=== PATIENT | female | born 1950 | race Caucasian/White ===

== ENCOUNTER 2019-07-15 20:41 | Inpatient (IN) | payer OTHER, SELFPAY ==
--- NOTE | ~2019-07-15 | XR_ITS ---
EXAMINATION: XR abdomen obstructive series DATE: 07/16/2019 11:32 INDICATION: Vomiting. Constipation. TECHNIQUE: Upright and supine views of the abdomen were obtained. COMPARISON: Abdomen radiographs 06/14/2013 FINDINGS: There are no dilated loops of bowel. There is a large volume of stool in the colon. No free intraperitoneal gas. Surgical clips in the right upper quadrant are likely from cholecystectomy. Ski nfolds overlie the chest. IMPRESSION: 1. Nonobstructive bowel gas pattern. Reviewed, dictated and finalized at location B. DENT RESPONSE LEAD
--- NOTE | ~2019-07-15 | CT_ITS ---
EXAMINATION: CT brain wo con INDICATION: Head injury COMPARISON: 08/03/2011 TECHNIQUE: Standard unenhanced head CT. The dose-length product (DLP) was 605.33 mGy-cm. The mA was a djusted according to patient size. Iterative reconstruction technique was employed. FINDINGS: There is no acute intraparenchymal hemorrhage. No evidence of mass lesion. No evidence of a cute infarction. There is mild periventricular and subcortical hypodensity probably related to small vessel ischemic disease. There is mild prominence of the sulci and ventricles related to cerebral atr ophy. Intracranial calcified cerebral atherosclerosis is noted. There are no extra-axial collections. There is no mass effect or midline shift. The orbits and soft tissues are unremarkable. There is mi nimal opacification of the left maxillary sinus. IMPRESSION: 1. No acute intracranial abnormality. 2. Age related findings. Reviewed, dictated and finalized at location A. NCIAL ENGINEER
[2019-07-15 21:44] VITALS: BP 165/96; PULSE 91; RESP 18; TEMP 36.9; O2SAT 100
--- NOTE | 2019-07-15 22:17 | ED.NAVMDI ---
HPI - Nausea/Vomiting/Diarrhea General Chief complaint: Nausea/Vomiting/Diarrhea Stated complaint: vomiting Time Seen by Provider: 07/15/19 22:17 Source: patient Mode of arrival: ambulatory Limitations: no limitations History of Present Illness HPI Narrative: A 68 y/o female presents to the ED with c/o N/V. Pt states that the N/V has been intermittent for the past week. She notes that she came to the ED because she believes she is dehydrated. Pt reports SOB, cough, rhinorrhea, and weakness, but denies diarrhea, fever, ABD pain, and CP. She has a PMHx of diabetes, [place], gastric bypass, and hyperlipidemia. Pt is not currently on blood thinners. Dr. Carter is her repairer pump. MD elicited complaint: nausea and vomiting Pertinent past history: abdominal surgery (Gastric bypass) Onset (ago): week(s) (1) Associated abdominal pain: No Associated symptoms: cough, shortness of breath, weakness and other (Rhinorrhea) Related Data Allergies Allergy/AdvReac Type Severity Reaction Status Date / Time No Known Allergies Allergy Unverified 12/15/18 19:11 Review of Systems Review of Systems: All systems reviewed & are unremarkable except as noted in HPI and below Constitutional: Constitutional: Denies fever(s) and Reports weakness ENT: Reports nasal discharge Cardiovascular: Cardiovascular: Denies chest pain Respiratory: Respiratory: Reports cough and Reports dyspnea Gastrointestinal: Gastrointestinal: Denies abdominal pain, Denies diarrhea, Reports nausea and Reports vomiting PMFSH Past Medical History Medical History (Updated 07/16/19 @ 01:40 by Devin Aguero MD) Anxiety Bowel obstruction Depression Diabetes Foot drop GERD (gastroesophageal reflux disease) Heart attack HTN (hypertension) Hyperlipidemia Hypothyroid Peripheral neuropathy Pneumonia Post-menopausal Renal failure TIA (transient ischemic attack) Surgical History Surgical History (Updated 07/15/19 @ 22:38 by Hailey Gonzalez) History of section History of cholecystectomy History of gastric bypass Social History Social History Smoking status: Never smoker Alcohol intake: never Gender identity (if verbalized by the patient): Female Exam Const: General: cooperative, healthy appearing, comfortable, no acute distress, well developed, alert and awake; No confused Orientation/consciousness: oriented to person, oriented to place, oriented to time, oriented x3 and No confused Limitations: no limitations HENMT: Head: normal to inspection, normocephalic and atraumatic Ears: hearing grossly normal bilaterally, TM normal on the right and TM normal on the left General nose exam: external nose normal, nares normal and no nasal discharge Face and sinus: normal facial exam Mouth: Yes oral mucosae normal, Yes lip normal, Yes tongue normal and Yes oropharynx normal Throat: posterior oropharynx normal, tonsils normal and uvula midline Eyes: General: appearance normal, both eyes and all related structures Pupils: PERRL EOM: EOM intact bilaterally Neck: Neck: normal visual inspection, full ROM, no lymphadenopathy and no meningeal signs Chest: Chest palpation & inspection: normal inspection of the chest Resp: Effort & Inspection: normal respiratory effort, able to speak in complete sentences, no respiratory distress and not tachypneic Auscultation: clear to auscultation bilaterally, no crackles, no rales, no rhonchi and no wheezes Cardio: Rate: regular rate Rhythm: regular rhythm GI: Inspection: normal to inspection GI Palp: No abdominal tenderness, Yes soft, No tender, No guarding, No rigid and No rebound tenderness Auscultation: normal bowel sounds : General: Yes no CVA tenderness Back/Spine/Pelvis: Back: no CVA tenderness Skin: General skin exam: normal color, no rashes or lesions noted, elasticity normal and turgor normal Neuro: General: oriented to person, oriented to place, orie
[2019-07-15 22:31] LABS: Basophils Absolute Auto 0.1 K/mm3 (0.0-0.1); Basophils Percent Auto 0.4 % (0.2-1.2); Eosinophils Absolute Auto 0.1 K/mm3 (0-0.3); Eosinophils Percent Auto 0.7 % (0-4.4); Hematocrit 26.4 % (37.0-47.0); Hemoglobin 7.3 g/dL (12.0-15.0); Immature Granulocyte Absolute 0.09 K/mm3 (0.00-0.031); Immature Granulocyte Percent A 0.7 % (0-0.5); Lymphocytes Absolute Auto 0.69 K/mm3 (0.9-3.2); Lymphocytes Percent Auto 5.2 % (18.3-44.2); Mean Corpuscular HGB Conc 27.7 g/dl (32-36); Mean Corpuscular Hemoglobin 19.9 pg (26-34); Mean Corpuscular Volume 71.9 fl (80-100); Mean Platelet Volume 8.8 fl (7.4-10.4); Monocytes Absolute Auto 0.9 K/mm3 (0.1-0.6); Monocytes Percent Auto 6.5 % (2.6-8.5); Neutrophils Absolute Auto 11.6 K/mm3 (1.3-6.7); Neutrophils Percent Auto 86.5 % (45.5-73.1); Platelet Count Result 455 k/mm3 (150-375); Red Blood Count 3.67 M/mm3 (4.2-5.4); Red Cell Distribution Width 21.5 % (11.5-14.5); White Blood Count 13.3 K/mm3 (4.5-10.0)
--- NOTE | 2019-07-15 22:42 | ECG_ITS ---
Measurements Intervals [place] Rate: 90 P: 11 MD: 150 QRS: -49 QRSD: 94 T: 28 QT: 371 QTc: 455 Interpretive Statements SINUS RHYTHM LEFT ANTERIOR FASCICULAR BLOCK BORDERLINE ST ABNORMALITY- INFERIOR LEADS BASELINE ARTIFACT- I, II, III, AVR, AVL, AVF ABNORMAL ECG Electronically Signed On 07-16-2019 7:09:01 ANIME DESIGNER by Kenji Lassiter D.O.
[2019-07-15 22:43] LABS: Alanine Aminotransferase 10 U/L (4-35); Albumin Level 3.9 g/dL (3.5-5.1); Alkaline Phosphatase 116 U/L (38-126); Aspartate Amino Transferase 16 U/L (14-36); Bilirubin,Total 0.3 mg/dL (0.2-1.3); Blood Urea Nitrogen 14 mg/dL (7-17); Calcium 8.9 mg/dL (8.4-10.2); Carbon Dioxide 24 mmol/L (22-30); Chloride 100 mmol/L (98-107); Estimated CRCL calculation 38 ml/min; Estimated Glomerular Filt Rate 50; Glucose 105 mg/dL (65-105); Lipase 68 U/L (23-300); Potassium 3.5 mmol/L (3.4-5.0); Sodium 138 mmol/L (137-145)
[2019-07-15 22:48] LABS: Hypochromasia 2+ (NORMAL); Platelet Estimate Increased (Adequate)
[2019-07-15 22:49] LABS: Anisocytosis 3+ (NORMAL)
[2019-07-15] MEDS: ONDANSETRON INJ 4 MG/2 ML VIAL IV PUSH (22:50)
[2019-07-15] MEDS: SODIUM CHLORIDE 0.9% IV 1,000 ML 999 ML IV CONT (22:50)
[2019-07-15 23:14] VITALS: BP 166/77; PULSE 73
[2019-07-15 23:14] LABS: Add Urine Microscopic? YES; Appearance Urine Cloudy (Clear); Bacteria Urine Trace /hpf; Bilirubin Urine Negative (Negative); Blood Urine 1+ (Negative); Color Urine Yellow (Yellow); Glucose Urine UA Negative (Negative); Ketones Urine Negative (Negative); Leukocyte Esterase Ur 2+ LEU/UL (Negative); Mucus Urine Rare /lpf; Nitrate Urine Negative (Negative); Protein Urine 2+ mg/dL (Negative); Specific Grav Ur 1.024 (1.001-1.035); Squamous Epithelial Cell Urine Many /hpf (Few); WBC Urine 31-50 /hpf
[2019-07-15 23:20] VITALS: BP 154/87; BP 182/96; PULSE 102; PULSE 92
[2019-07-16] VITALS (19 sets, daily range): BP systolic 138–204; BP diastolic 73–100; PULSE 59–97; RESP 14–22; TEMP 36.3–37.1; O2SAT 94–100; BMI 17.1
[2019-07-16] MEDS: ACETAMINOPHEN 325 MG TABLET 650 MG PO (02:28)
[2019-07-16 03:26] LABS: Immature Reticulocyte Fraction 25.9 % (3.0-15.9); Reticulocyte Hemoglobin Conten 22.8 pg (28.2-35.7); Reticulocyte Percent 1.42 % (0.7-4.3); Reticulocytes Absolute 0.05 B/L (32.2-175.7)
--- NOTE | 2019-07-16 03:36 | ADMGEN ---
This patient, Sonya Johnson, was admitted to Medical Room 243-. Patient/family oriented to hospital policies and general routines including ID bracelet, bed and alarms, visiting hours, pain management, procedures, bathroom and other care routines, personal items, smoking policy, room service/diet, and visiting hours. Valuables list has been completed. Information on how to activate the Rapid Response Team has been discussed. Patient/Family are encouraged to report perceived risks to care and to ask questions if they do not understand what they are told or what they should do.
[2019-07-16] MEDS: SODIUM CHLORIDE 0.9% IV 250 ML 30 ML IV CONT (03:40)
--- NOTE | 2019-07-16 05:27 | PM.IMHP ---
H&P: HPI History of Present Illness Chief complaint: Nausea, vomiting, dizziness and weakness++ Narrative: This is a 68 year old Diabetic female with known HTN, and GERD who presented to the hospital with a complaint of nausea and vomiting, exertional shortness of breath, chest pressure, weakness and dizziness for the past week. She states that anything she eats comes right back up. She describes having clear emesis that is not dark nor bloody. Tonight she came to the hospital secondary to being dehydrated. She denies any diarrhea, dark stool or bloody stool. Her last bowel movement was four days ago. She does have a history of previous PUD but has never had a GI bleed before. She has had an EGD before but can't tell me when and isn't sure if she's ever had a colonoscopy before. She does admit to taking ibuprofen twice daily for the past couple of months. She denies any headache, fever, chills, cough, abdominal pain, diarrhea, hematuria, dysuria, or rectal bleeding. In the ER tonight the patient was found to have a drop in her hemoglobin from 8.6 to 7.3 over the past 5 days. ER provider has ordered 1 unit of pRBCs to be transfused. The patient's urinalysis also came back abnormal. The patient is known to follow up with Dr. Carter. Review of Systems Review of Systems: All systems reviewed & are unremarkable except as noted in HPI and below PMFSH Past Medical History Medical History Anxiety Bowel obstruction Depression Diabetes Foot drop GERD (gastroesophageal reflux disease) Heart attack HTN (hypertension) Hyperlipidemia Hypothyroid Peripheral neuropathy Pneumonia Post-menopausal Renal failure TIA (transient ischemic attack) Surgical History Surgical History History of section History of cholecystectomy History of gastric bypass Family History Family History Mother Acute myocardial infarction Asthma History of blood clots Congestive heart failure Social History Social History Smoking status: Never smoker Alcohol intake: never Substance use: never Gender identity (if verbalized by the patient): Female Spiritual care concerns: No Agree to blood products: Yes Meds Home Medications and Allergies Home Medications Medication Instructions Recorded Confirmed Type buspirone 15 mg PO TID 07/16/19 07/16/19 History furosemide 40 mg PO DAILY 07/16/19 07/16/19 History hydroxyzine HCl 25 mg PO Q8H PRN 07/16/19 07/16/19 History pantoprazole 40 mg PO DAILY 07/16/19 07/16/19 History pregabalin 75 mg PO BID 07/16/19 07/16/19 History simvastatin 20 mg PO DAILY 07/16/19 07/16/19 History sitagliptin [Januvia] 50 mg PO DAILY 07/16/19 07/16/19 History Allergies Allergy/AdvReac Type Severity Reaction Status Date / Time No Known Allergies Allergy Unverified 12/15/18 19:11 Vital Signs Vital Signs - 24 hr 07/15/19 21:44 07/15/19 23:14 07/15/19 23:20 Temperature 36.9 C Pulse Rate 91 73 102 H Respiratory Rate 18 Blood Pressure 165/96 H 166/77 H 154/87 H Pulse Oximetry 100 07/16/19 01:30 07/16/19 03:07 07/16/19 03:37 Temperature 36.4 C Pulse Rate 75 71 97 Respiratory Rate 14 18 22 H Blood Pressure 152/86 H 156/78 H 163/87 H Pulse Oximetry 98 96 07/16/19 03:43 07/16/19 03:55 07/16/19 04:00 Temperature 36.4 C 36.3 C L Pulse Rate 97 75 71 Respiratory Rate 22 H 20 Blood Pressure 163/87 H 190/85 H Pulse Oximetry 96 07/16/19 04:55 Temperature 36.3 C L Pulse Rate 69 Respiratory Rate 20 Blood Pressure 185/78 H Pulse Oximetry 95 Exam Const: General: cooperative, healthy appearing, no acute distress, alert and awake Nutritional Appearance: thin Orientation/consciousness: oriented x3 HENMT: Head: normal to inspection General nose exam: exte
[2019-07-16] MEDS: DEXTROSE 50% 25 GM/50 ML SYRINGE IV PUSH ×2 (06:08→11:39)
[2019-07-16 06:36] LABS: Glucose Point of Care 62 (65-105)
[2019-07-16 06:36] LABS: Glucose Point of Care 142 (65-105)
[2019-07-16] MEDS: hydrALAZINE HCL 20 MG/ML VIAL 10 MG IV PUSH ×2 (06:36→20:37)
[2019-07-16] MEDS: DEXTROSE 5%/0.9% SOD CHL 1,000 ML 100 ML IV CONT (06:44)
[2019-07-16 07:30] LABS: Bilirubin,Total 0.3 mg/dL (0.2-1.3); Lactate Dehydrogenase 413 U/L (313-618)
[2019-07-16 07:39] LABS: Transferrin 194 mg/dL (206-381)
[2019-07-16 07:41] LABS: Alanine Aminotransferase 9 U/L (4-35); Albumin Level 3.3 g/dL (3.5-5.1); Alkaline Phosphatase 94 U/L (38-126); Aspartate Amino Transferase 16 U/L (14-36); Bilirubin,Total 0.3 mg/dL (0.2-1.3); Blood Urea Nitrogen 13 mg/dL (7-17); Calcium 8.1 mg/dL (8.4-10.2); Carbon Dioxide 20 mmol/L (22-30); Chloride 104 mmol/L (98-107); Estimated CRCL calculation 41 ml/min; Estimated Glomerular Filt Rate > 60; Glucose 120 mg/dL (65-105); Potassium 3.3 mmol/L (3.4-5.0); Sodium 135 mmol/L (137-145); Troponin I 0.024 ng/mL (0.000-0.034)
[2019-07-16] MEDS: PANTOPRAZOLE 40 MG TABLET PO (09:34)
[2019-07-16] MEDS: SIMVASTATIN 20 MG TABLET PO (09:34)
[2019-07-16] MEDS: FUROSEMIDE 40 MG TABLET PO (09:34)
[2019-07-16] MEDS: busPIRone HCL 5 MG TABLET 15 MG PO ×3 (09:34→18:00)
[2019-07-16] MEDS: PREGABALIN 75 MG CAPSULE PO ×2 (09:34→18:00)
[2019-07-16 10:08] LABS: Iron 29 ug/dL (37-170)
--- NOTE | 2019-07-16 10:15 | PM.IMPN ---
Progress Note: A&P Assessment and Plan (1) Nausea & vomiting: Qualifiers: Vomiting Intractability: non-intractable Vomiting type: unspecified Qualified Code(s): R11.2 - Nausea with vomiting, unspecified Code(s): R11.2 - Nausea with vomiting, unspecified Status: Acute Assessment and Plan: Patient reports post-prandial vomiting. Reports a long history of vomiting off and on but symptoms worsened over the last 1 week. She has seen Dr Carter in the past and was found to have esophageal web on EGD Apr 2016 which was dilated. Consult[address] Dr Carter and appreciate his recommendations. Continue protonix, antiemetics. Edit: Reviewed Dr Carter's note, plan for outpatient EGD and possible colonoscopy as well. (2) Symptomatic anemia: Code(s): D64.9 - Anemia, unspecified Status: Acute Assessment and Plan: Hgb down to 7.3 yesterday. Recheck CBC this AM and monitor H&H closely. She received 1 unit packed RBC yesterday. She does have a history of gastric bypass in 2006 and previous records show she has had anemia in the past, possibly malabsorption after bypass. Edit: Hgb up to 8.6 this afternoon. Recheck in AM. Likely a component of iron deficiency, will start oral iron supplementation. (3) Diabetes: Qualifiers: Diabetes mellitus complication status: without complication Diabetes mellitus director of informatics insulin use: without prison use Diabetes mellitus type: type 2 Qualified Code(s): E11.9 - Type 2 diabetes mellitus without complications Code(s): E11.9 - Type 2 diabetes mellitus without complications Status: Chronic Assessment and Plan: Hold home Januvbarbara. Monitor with accu-cheks and cover with SSI. (4) HTN (hypertension): Qualifiers: Hypertension type: unspecified Qualified Code(s): I10 - Essential (primary) hypertension Code(s): I10 - Essential (primary) hypertension Status: Chronic Assessment and Plan: BP elevated. Patient is anxious. IV hydralazine as needed, monitor BP and adjust treatment as needed. (5) Bacteriuria: Code(s): R82.71 - Bacteriuria Status: Acute Assessment and Plan: Rocephin was started in the ED in the setting of abnormal urinalysis. Pt is asymptomatic. Urine culture pending. (6) Hypokalemia: Code(s): E87.6 - Hypokalemia Status: Acute Assessment and Plan: K 3.3 this AM, replace. Recheck tomorrow. Likely associated with GI loss. (7) Major depressive disorder: Qualifiers: Major depression recurrence: unspecified whether recurrent Active/Remission status: remission status unspecified Qualified Code(s): F32.9 - Major depressive disorder, single episode, unspecified Code(s): F32.9 - Major depressive disorder, single episode, unspecified Status: Acute Assessment and Plan: Continue home Buspar. Patient is very anxious. Can try low dose Xanax BID. (8) DVT prophylaxis: Code(s): Z29.9 - Encounter for prophylactic measures, unspecified Status: Acute Assessment and Plan: SCDs Subjective Date/time seen: 07/16/19 10:00 Interval history: Ms. Johnson is a 68yo F admitted with anemia and vomiting. She tells me she has not vomited since she has been here but was vomiting after almost every meal at home. She reports vomiting on and off over the last several months, worsening in the last one week. She reports intermittent nausea that is relieved after vomiting. Reports vomit looks like clear liquid and denies noticing blood or coffe-ground appearance. Last BM was 4 days ago, has not tolerated much of anything to eat. She is quite anxious, stressed about family situations at home. She denies any chest pain or shortness of breath.
[2019-07-16 10:18] LABS: Percent Iron Saturation 12 % (20-50)
[2019-07-16 10:34] LABS: Basophils Absolute Auto 0.1 K/mm3 (0.0-0.1); Basophils Percent Auto 0.5 % (0.2-1.2); Eosinophils Absolute Auto 0.1 K/mm3 (0-0.3); Eosinophils Percent Auto 0.9 % (0-4.4); Hematocrit 29.2 % (37.0-47.0); Hemoglobin 8.4 g/dL (12.0-15.0); Immature Granulocyte Absolute 0.06 K/mm3 (0.00-0.031); Immature Granulocyte Percent A 0.6 % (0-0.5); Lymphocytes Absolute Auto 0.75 K/mm3 (0.9-3.2); Lymphocytes Percent Auto 7.5 % (18.3-44.2); Mean Corpuscular HGB Conc 28.8 g/dl (32-36); Mean Corpuscular Hemoglobin 21.7 pg (26-34); Mean Corpuscular Volume 75.5 fl (80-100); Mean Platelet Volume 8.9 fl (7.4-10.4); Monocytes Absolute Auto 0.8 K/mm3 (0.1-0.6); Monocytes Percent Auto 7.9 % (2.6-8.5); Neutrophils Absolute Auto 8.3 K/mm3 (1.3-6.7); Neutrophils Percent Auto 82.6 % (45.5-73.1); Platelet Count Result 366 k/mm3 (150-375); Red Blood Count 3.87 M/mm3 (4.2-5.4); Red Cell Distribution Width 22.7 % (11.5-14.5)
[2019-07-16 10:43] LABS: Ferritin 6.51 ng/mL (11.1-264)
[2019-07-16 10:50] LABS: Hypochromasia 2+ (NORMAL); Platelet Estimate Adequate (Adequate)
[2019-07-16 11:15] LABS: Glucose Point of Care 62 (65-105)
--- NOTE | 2019-07-16 11:25 | PC.NURSE ---
Patient BG 62 at this time. Patient refuses oral glucose gel. Apple juice given to patient. Will recheck BG in 15 minutes.
[2019-07-16 11:39] LABS: Glucose Point of Care 63 (65-105)
[2019-07-16 11:56] LABS: Glucose Point of Care 88 (65-105)
--- NOTE | 2019-07-16 14:06 | WPDGICN ---
Assessment and Plan Additional Plan This is a 68-year-old white female patient I am asked to see for nausea vomiting. Patient reports she has had nausea and vomiting for approximately 1 week. She began to feel very weak with no energy and presented to the emergency room. In the emergency room she was found to have some have element of dehydration and started on IV fluids. Urinalysis revealed significant pyuria. And bacteriuria. Patient has some improvement today after IV fluid rehydration and tolerated lunch with no difficulties. Past medical history is significant for GE reflux disease. She has a history of distal esophageal stricturing requiring dilatation in 2016. She does occasionally notice some regurgitation in the past. Symptoms of difficulty swallowing have worsened over the last 3 months. Past medical history is also significant for prior gastric bypass surgery in 2006. Patient has a history of diabetes. Hypertension. Family history is noncontributory. Current medications include boost per own, Lasix, hydroxyzine, pantoprazole, pregabalin. Simvastatin. Januvia. NKDA . On physical exam patient is alert. Comfortable at rest. Vital signs stable. HEENT exam unremarkable. She is anicteric. Lungs are clear to auscultation and percussion. Heart is without murmur. Abdominal exam is soft nontender with no hepatosplenomegaly. Laboratory red tests reveal pyuria. Cloudy urine with 31-50 white cells per high-powered field. Hemoglobin of 8.4 matter crit 29.2 MCV of 75. Impression 1. Nausea vomiting. This is most likely related to her urinary tract infection. Supportive care and IV fluids suggested initially. Problem 2. Pyuria. Most consistent with urinary tract infection. Agree with urine cultures in antibiotics. 3. GE reflux disease. Patient is known to have esophageal stricture most recently dilated in 2016. Patient may be prone to reflux because of this. Plan to continue proton pump inhibitor. Outpatient EGD for dilatation of stricture is advised because she has recurrent dysphagia. 4. Dysphagia. Follow-up EGD anticipated as an outpatient. She has a history of esophageal stricture ring. 5. Microcytic anemia. This is a bit suspicious for iron deficiency. Plan to check iron studies and stool Hemoccult. EGD will be planned. She may also benefit from outpatient colonoscopy. 6. History of gastric bypass. This is felt to be stable. But may contribute to her acid reflux. GI Consult Note Consult date/time: 07/16/19 14:06 HPI: Sonya Johnson is a 68 year old female [facility] Past Medical History Medical History (Updated 07/16/19 @ 10:32 by Lorene Cooper PA-C) Anxiety Bowel obstruction Depression Diabetes Foot drop GERD (gastroesophageal reflux disease) Heart attack HTN (hypertension) Hyperlipidemia Hypothyroid Peripheral neuropathy Pneumonia Post-menopausal Renal failure TIA (transient ischemic attack) Surgical History Surgical History History of section History of cholecystectomy History of gastric bypass Family History Family History Mother Acute myocardial infarction Asthma History of blood clots Congestive heart failure Social History Social History Smoking status: Never smoker Alcohol intake: never Substance use: never Gender identity (if verbalized by the patient): Female Spiritual care concerns: No Agree to blood products: Yes Meds Home Medications and Allergies Home Medications Medication Instructions Recorded Confirmed Type buspirone 15 mg PO TID 07/16/19 07/16/19 History furosemide 40 mg PO DAILY 07/16/19 07/16/19 History hydroxyzine HCl 25 mg PO Q8H PRN 07/16/19 07/16/19 History pantoprazole 40 mg PO DAILY 07/16/19 07/16/19 History pregabalin 75 mg PO BID 07/16/19
[2019-07-16 14:16] LABS: Glucose Point of Care 211 (65-105)
[2019-07-16 16:01] LABS: Hematocrit 29.8 % (37.0-47.0); Hemoglobin 8.6 g/dL (12.0-15.0)
[2019-07-16 17:18] LABS: Iron 28 ug/dL (37-170)
[2019-07-16 17:27] LABS: Percent Iron Saturation 12 % (20-50)
[2019-07-16 17:54] LABS: Ferritin 7.11 ng/mL (11.1-264)
[2019-07-16] MEDS: FERROUS SULFATE 324 MG TABLET PO (18:00)
[2019-07-16 18:19] LABS: Glucose Point of Care 79 (65-105)
[2019-07-16 23:44] LABS: Glucose Point of Care 61 (65-105)
[2019-07-16 23:44] LABS: Glucose Point of Care 88 (65-105)
[2019-07-17] VITALS (10 sets, daily range): BP systolic 133–153; BP diastolic 79–86; PULSE 83–100; RESP 18–20; TEMP 36.7–37.1; O2SAT 96–100
[2019-07-17] MEDS: LORAZEPAM 0.5 MG TABLET PO (02:54)
[2019-07-17 05:52] LABS: Basophils Percent Auto 0.3 % (0.2-1.2); Eosinophils Absolute Auto 0.1 K/mm3 (0-0.3); Eosinophils Percent Auto 0.8 % (0-4.4); Hematocrit 28.9 % (37.0-47.0); Hemoglobin 8.4 g/dL (12.0-15.0); Immature Granulocyte Absolute 0.07 K/mm3 (0.00-0.031); Immature Granulocyte Percent A 0.6 % (0-0.5); Lymphocytes Absolute Auto 0.78 K/mm3 (0.9-3.2); Lymphocytes Percent Auto 6.4 % (18.3-44.2); Mean Corpuscular HGB Conc 29.1 g/dl (32-36); Mean Corpuscular Hemoglobin 21.5 pg (26-34); Mean Corpuscular Volume 74.1 fl (80-100); Mean Platelet Volume 8.9 fl (7.4-10.4); Monocytes Absolute Auto 0.8 K/mm3 (0.1-0.6); Monocytes Percent Auto 6.6 % (2.6-8.5); Neutrophils Absolute Auto 10.4 K/mm3 (1.3-6.7); Neutrophils Percent Auto 85.3 % (45.5-73.1); Platelet Count Result 391 k/mm3 (150-375); Red Cell Distribution Width 22.5 % (11.5-14.5); White Blood Count 12.2 K/mm3 (4.5-10.0)
[2019-07-17 05:54] LABS: Blood Urea Nitrogen 14 mg/dL (7-17); Calcium 7.7 mg/dL (8.4-10.2); Carbon Dioxide 21 mmol/L (22-30); Chloride 103 mmol/L (98-107); Estimated CRCL calculation 34 ml/min; Estimated Glomerular Filt Rate 50; Glucose 84 mg/dL (65-105); Potassium 4.5 mmol/L (3.4-5.0); Sodium 133 mmol/L (137-145)
[2019-07-17 05:56] LABS: Magnesium 1.7 mg/dL (1.6-2.3)
[2019-07-17] MEDS: GLUCOSE ORAL GEL 15 GM OF GLUCSE IN 37.5 GM TUBE PO (06:02)
[2019-07-17 07:33] LABS: Glucose Point of Care 61 (65-105)
[2019-07-17 07:33] LABS: Glucose Point of Care 66 (65-105)
[2019-07-17 07:33] LABS: Hypochromasia 1+ (NORMAL); Ovalocytes 2+ (NORMAL); Platelet Estimate Adequate (Adequate); Poikilocytosis 2+ (NORMAL)
[2019-07-17 07:34] LABS: Glucose Point of Care 118 (65-105)
--- NOTE | 2019-07-17 08:49 | WPDGIPROGNO ---
Progress Note: A&P Additional Plan Patient tolerating clear liquids with no difficulty. Patient describes vomiting. However on further questioning this may be more dysphagia and difficulties passing food through the esophagus. Plan to advance to a soft diet. If diet tolerated EGD can be planned as an outpatient. If she continues to have difficulty swallowing EGD will be performed on Friday. Patient also has iron deficiency anemia. Elective colonoscopy is suggested at a later date. Urinary tract infection current lead being treated. Subjective Date/time seen: 07/17/19 08:49 Objective Data Vital Signs Vital Signs: Vital Signs - 24 hr 07/16/19 12:00 07/16/19 14:20 07/16/19 16:00 Temperature 37.0 C Pulse Rate 86 78 84 Respiratory Rate 18 Blood Pressure 138/73 Pulse Oximetry 100 07/16/19 16:33 07/16/19 19:32 07/16/19 20:00 Temperature Pulse Rate 78 Respiratory Rate Blood Pressure Pulse Oximetry 94 94 07/16/19 20:49 07/16/19 21:44 07/16/19 21:54 Temperature 36.4 C 36.5 C Pulse Rate 59 L 89 Respiratory Rate 18 18 Blood Pressure 204/100 H 141/79 H 162/84 H Pulse Oximetry 94 96 07/17/19 00:00 07/17/19 01:50 07/17/19 04:00 Temperature Pulse Rate 83 91 84 Respiratory Rate Blood Pressure 152/86 H Pulse Oximetry 96 07/17/19 05:45 Temperature 36.7 C Pulse Rate 89 Respiratory Rate 18 Blood Pressure 136/85 Pulse Oximetry 99 Intake/Output Intake/Output: Intake & Output 07/14/19 07/15/19 07/16/19 07/17/19 23:59 23:59 23:59 23:59 Intake Total 1000 3986 120 Output Total 800 200 Balance 1000 3186 -80 Meds/Results Medications: Active Medications Generic Name Dose Route Start Last Admin Trade Name Freq PRN Reason Stop Dose Admin Alprazolam 0.125 mg 07/16/19 16:51 07/16/19 22:20 Xanax PO 0.125 mg BID PRN Administration Anxiety Buspirone HCl 15 mg 07/16/19 09:00 07/16/19 18:00 Buspar PO 15 mg TID DELMAR Administration Dextrose 12.5 gm 07/16/19 02:46 07/16/19 11:39 Dextrose 50% Syringe IV PUSH 12.5 gm PRN PRN Administration Hypoglycemia Protocol Ferrous Sulfate 324 mg 07/16/19 16:55 07/16/19 18:00 Ferrous Sulfate PO 324 mg DAILY DELMAR Administration Furosemide 40 mg 07/16/19 09:00 07/16/19 09:34 Lasix Tablet PO 40 mg DAILY DELMAR Administration Glucagon 1 mg 07/16/19 02:46 Glucagon For Inj IM PRN PRN Hypoglycemia Protocol Glucose 15 gm 07/16/19 12:09 07/17/19 06:02 Glutose 15 PO 15 gm PRN PRN Administration Hypoglycemia Protocol Hydralazine HCl 10 mg 07/16/19 06:20 07/16/19 20:37 Apresoline Hcl Inj IV PUSH 07/18/19 05:00 10 mg Q8H PRN Administration see comment Hydroxyzine HCl 25 mg 07/16/19 04:19 Atarax Tablet PO Q8H PRN Itching Ceftriaxone Sodium/Dextrose 1 gm in 50 mls @ 100 mls/hr 07/16/19 21:00 07/16/19 20:59 Rocephin 1 Gm/D5w 50 Ml IVPB Infused HS DELMAR Infusion Dextrose 1,000 mls @ 100 mls/hr 07/16/19 02:46 Dextrose 5% 1,000 Ml IVPB PRN PRN Hypoglycemia Protocol Insulin Aspart 2 - 5 units 07/16/19 08:00 07/16/19 18:06 Novolog SUB-Q Not Given TIDWM DELMAR Protocol Pantoprazole Sodium 40 mg 07/16/19 10:25 07/16/19 11:09 Protonix Iv IV PUSH Not Given QAM DELMAR Pregabalin 75 mg 07/16/19 09:00 07/16/19 18:00 Lyrica PO 75 mg BID DELMAR Administration Simvastatin 20 mg 07/16/19 09:00 07/16/19 09:34 Zocor PO 20 mg DAILY DELMAR Administration Radiology Results: ITS Impressions Abdomen X-Ray 07/16/19 11:47 IMPRESSION: 1. Nonobstructive bowel gas pattern. Labs Labs: Laboratory Results - last 24 hr 07/16/19 07/16/19 07/16/19 07:08 09:37 11:13 WBC 10.0 RBC 3.87 L Hgb 8.4 L Hct 29.2 L MCV 75.5 L D MCH 21.7 L D MCHC 28.8 L RDW 22.7 H Plt Count 366 MPV 8.9 Immature Gran % (Auto)
[2019-07-17 09:52] LABS: Glucose Point of Care 96 (65-105)
[2019-07-17] MEDS: PANTOPRAZOLE SODIUM IV 40 MG VIAL IV PUSH (09:53)
[2019-07-17] MEDS: SIMVASTATIN 20 MG TABLET PO (09:53)
[2019-07-17] MEDS: PREGABALIN 75 MG CAPSULE PO ×2 (09:53→17:50)
[2019-07-17] MEDS: busPIRone HCL 5 MG TABLET 15 MG PO ×3 (09:53→17:50)
[2019-07-17] MEDS: FUROSEMIDE 40 MG TABLET PO (09:53)
[2019-07-17] MEDS: IRON SUCROSE COMPLEX 100 MG in SODIUM CHLORIDE 0.9% IV 50 ML 220 MG IVPB (11:46)
[2019-07-17 16:19] LABS: Glucose Point of Care 85 (65-105)
[2019-07-17] MEDS: PHENOL/SOD PHENO SPRAY CHERRY (*BKC) 1 SPRAY MUCOUS MEM (17:56)
[2019-07-17 18:40] LABS: Glucose Point of Care 101 (65-105)
[2019-07-17] MEDS: TRAMADOL HCL 50 MG TABLET PO (18:51)
--- NOTE | 2019-07-17 19:00 | PM.IMPN ---
Progress Note: A&P Assessment and Plan (1) Nausea & vomiting: Qualifiers: Vomiting Intractability: non-intractable Vomiting type: unspecified Qualified Code(s): R11.2 - Nausea with vomiting, unspecified Code(s): R11.2 - Nausea with vomiting, unspecified Status: Acute Assessment and Plan: Patient reports post-prandial regurgitation. Symptoms sound more like dysphagia. Reports a long history of vomiting off and on but symptoms worsened over the last 1 week. She has seen Dr Carter in the past and was found to have esophageal web on EGD Apr 2016 which was dilated. Consulted Dr Carter and appreciate his recommendations. Continue protonix, antiemetics. She regurgitated multiple times with soft diet today. Dr Carter may plan for EGD friday. (2) Symptomatic anemia: Code(s): D64.9 - Anemia, unspecified Status: Acute Assessment and Plan: Hgb 7.3 on arrival and received 1 unit packed RBC. H&H remains low but stable. She does have a history of gastric bypass in 2006 and previous records show she has had anemia in the past, possibly malabsorption after bypass. Likely a component of iron deficiency, will start oral iron supplementation. Changed oral supplementation to IV anticipating likely EGD Friday. (3) Diabetes: Qualifiers: Diabetes mellitus complication status: without complication Diabetes mellitus alf insulin use: without truck terminal manager use Diabetes mellitus type: type 2 Qualified Code(s): E11.9 - Type 2 diabetes mellitus without complications Code(s): E11.9 - Type 2 diabetes mellitus without complications Status: Chronic Assessment and Plan: Hold home Nate. Monitor with accu-cheks and cover with SSI. (4) HTN (hypertension): Qualifiers: Hypertension type: unspecified Qualified Code(s): I10 - Essential (primary) hypertension Code(s): I10 - Essential (primary) hypertension Status: Chronic Assessment and Plan: Stable. (5) Bacteriuria: Code(s): R82.71 - Bacteriuria Status: Acute Assessment and Plan: Rocephin was started in the ED in the setting of abnormal urinalysis. Pt is asymptomatic. Urine culture is unremarkable. Rocephin stopped. (6) Hypokalemia: Code(s): E87.6 - Hypokalemia Status: Acute Assessment and Plan: K stable today. Recheck in AM. Likely associated with GI loss. (7) Major depressive disorder: Qualifiers: Active/Remission status: remission status unspecified Major depression recurrence: unspecified whether recurrent Qualified Code(s): F32.9 - Major depressive disorder, single episode, unspecified Code(s): F32.9 - Major depressive disorder, single episode, unspecified Status: Acute Assessment and Plan: Continue home Buspar. Patient is very anxious. Low dose Ativan PRN. (8) DVT prophylaxis: Code(s): Z29.9 - Encounter for prophylactic measures, unspecified Status: Acute Assessment and Plan: SCDs Subjective Date/time seen: 07/17/19 1500 Interval history: Ms. Johnson is a 68yo F admitted with anemia and vomiting, dysphagia. She did not tolerate a soft diet for lunch. She tells me she would eat a few bites and vomit immediately, but she proceeded to keep eating. She denies chest pain or shortness of breath. Reports emesis is clear and liquidy, not red or black. She is anxious. She continues to request narcotic medication for her headache. Review of Systems Review of Systems: Narrative: Twelve systems were reviewed with pertinent positives and negatives as per HPI. Exam Narrative: Exam Narrative: General: Female resting supine in bed in no acute distress. Thin. HEENT: Normocephalic, EOMI, oral mu
[2019-07-17 23:25] LABS: Glucose Point of Care 77 (65-105)
[2019-07-18] VITALS (9 sets, daily range): BP systolic 111–131; BP diastolic 63–90; PULSE 75–100; RESP 18–20; TEMP 36.3–36.7; O2SAT 91–97
[2019-07-18] MEDS: LORAZEPAM INJ 2 MG/ML VIAL 0.5 MG IV PUSH (02:42)
[2019-07-18 03:05] LABS: Haptoglobin 252 mg/dL (43-212)
[2019-07-18 06:31] LABS: Hematocrit 25.6 % (37.0-47.0); Hemoglobin 7.5 g/dL (12.0-15.0); Mean Corpuscular HGB Conc 29.3 g/dl (32-36); Mean Corpuscular Hemoglobin 21.8 pg (26-34); Mean Corpuscular Volume 74.4 fl (80-100); Mean Platelet Volume 8.7 fl (7.4-10.4); Platelet Count Result 344 k/mm3 (150-375); Red Blood Count 3.44 M/mm3 (4.2-5.4); Red Cell Distribution Width 22.7 % (11.5-14.5); White Blood Count 9.1 K/mm3 (4.5-10.0)
[2019-07-18 06:31] LABS: Glucose Point of Care 70 (65-105)
[2019-07-18 06:48] LABS: Blood Urea Nitrogen 14 mg/dL (7-17); Calcium 7.6 mg/dL (8.4-10.2); Carbon Dioxide 22 mmol/L (22-30); Chloride 102 mmol/L (98-107); Estimated CRCL calculation 41 ml/min; Estimated Glomerular Filt Rate > 60; Glucose 81 mg/dL (65-105); Magnesium 1.7 mg/dL (1.6-2.3); Phosphorus 3.8 mg/dL (2.5-4.5); Potassium 3.4 mmol/L (3.4-5.0); Sodium 133 mmol/L (137-145)
[2019-07-18] MEDS: busPIRone HCL 5 MG TABLET 15 MG PO ×3 (09:29→16:13)
[2019-07-18] MEDS: FUROSEMIDE 40 MG TABLET PO (09:29)
[2019-07-18] MEDS: PANTOPRAZOLE SODIUM IV 40 MG VIAL IV PUSH (09:30)
[2019-07-18] MEDS: SIMVASTATIN 20 MG TABLET PO (09:30)
[2019-07-18] MEDS: GLUCOSE ORAL GEL 15 GM OF GLUCSE IN 37.5 GM TUBE PO ×3 (09:30→21:26)
[2019-07-18] MEDS: PREGABALIN 75 MG CAPSULE PO ×2 (09:30→17:04)
[2019-07-18 10:10] LABS: Glucose Point of Care 149 (65-105)
[2019-07-18 10:10] LABS: Glucose Point of Care 48 (65-105)
[2019-07-18] MEDS: POTASSIUM CHLORIDE 20 MEQ PACKET (FOR LIQUID) 40 MEQ PO (10:32)
[2019-07-18] MEDS: MAGNESIUM SULF 2 GM/WATER 50ML 2 GM/50 ML BAG IVPB (10:36)
[2019-07-18] MEDS: TRAMADOL HCL 50 MG TABLET PO (11:40)
[2019-07-18 13:36] LABS: Hematocrit 32.4 % (37.0-47.0); Hemoglobin 9.2 g/dL (12.0-15.0)
[2019-07-18 13:43] LABS: Glucose Point of Care 108 (65-105)
--- NOTE | 2019-07-18 15:00 | PM.IMPN ---
Progress Note: A&P Assessment and Plan (1) Nausea & vomiting: Qualifiers: Vomiting Intractability: non-intractable Vomiting type: unspecified Qualified Code(s): R11.2 - Nausea with vomiting, unspecified Code(s): R11.2 - Nausea with vomiting, unspecified Status: Acute Assessment and Plan: Patient reports post-prandial regurgitation. Symptoms sound more like dysphagia. Reports a long history of vomiting off and on but symptoms worsened over the last 1 week. She has seen Dr Carter in the past and was found to have esophageal web on EGD Apr 2016 which was dilated. Consulted Dr Carter and appreciate his recommendations. Continue protonix, antiemetics. She regurgitated multiple times with soft diet yesterday. Has tolerated clear liquid today. Reviewed Dr Carter and Dr Cortez's notes; plan for colonoscopy EGD tomorrow. (2) Symptomatic anemia: Code(s): D64.9 - Anemia, unspecified Status: Acute Assessment and Plan: Hgb 7.3 on arrival and received 1 unit packed RBC. H&H remains low but stable. She does have a history of gastric bypass in 2006 and previous records show she has had anemia in the past, XIANG possibly 2/2 poor absorption after GI surgery. IV iron given yesterday and H&H is up this afternoon - will hold off on starting oral iron supplementation until after upper GI eval. (3) Diabetes: Qualifiers: Diabetes mellitus complication status: without complication Diabetes mellitus detention insulin use: without detention use Diabetes mellitus type: type 2 Qualified Code(s): E11.9 - Type 2 diabetes mellitus without complications Code(s): E11.9 - Type 2 diabetes mellitus without complications Status: Chronic Assessment and Plan: Hold home Januvia. Monitor with accu-cheks and cover with SSI. With some hypoglycemia and protocol was utilized. (4) HTN (hypertension): Qualifiers: Hypertension type: unspecified Qualified Code(s): I10 - Essential (primary) hypertension Code(s): I10 - Essential (primary) hypertension Status: Chronic Assessment and Plan: Stable. (5) Bacteriuria: Code(s): R82.71 - Bacteriuria Status: Acute Assessment and Plan: Rocephin was started in the ED in the setting of abnormal urinalysis. Pt is asymptomatic. Urine culture is unremarkable. Rocephin stopped. (6) Hypokalemia: Code(s): E87.6 - Hypokalemia Status: Acute Assessment and Plan: Potassium 3.4 and replaced orally. Recheck in AM. Likely associated with GI loss. (7) Major depressive disorder: Qualifiers: Active/Remission status: remission status unspecified Major depression recurrence: unspecified whether recurrent Qualified Code(s): F32.9 - Major depressive disorder, single episode, unspecified Code(s): F32.9 - Major depressive disorder, single episode, unspecified Status: Acute Assessment and Plan: Continue home Buspar. She is less anxious today. Low dose Ativan PRN. (8) DVT prophylaxis: Code(s): Z29.9 - Encounter for prophylactic measures, unspecified Status: Acute Assessment and Plan: SCDs Subjective Date/time seen: 07/18/19 1430 Interval history: Ms. Johnson is a 68yo F admitted with anemia and vomiting, dysphagia. She regurgitated soft diet yesterday and was started back on clear liquids. Tolerating clear liquids so far and denies vomiting today. She denies chest pain or shortness of breath. She feels well. Denies nausea. Review of Systems Review of Systems: Narrative: Twelve systems were reviewed with pertinent positives and negatives as per HPI. Exam Narrative: Exam Narrative: General: Female sitting up in bedside chair no acut
--- NOTE | 2019-07-18 15:49 | WPDGIPROGNO ---
Progress Note: A&P Additional Plan GI Dana for Emma 18 Jul 2019 Seen with HB Juventino at bedside. Continues with dysphagia for solids but tolerating clears. No abdominal pain, diarrhea, constipation. vss No TIARA. Soft/NT Hct 26. B12 330, folate 6, ferritin 7 Haptoglobin 252 A/P A. GERD: PPI B. Dysphagia and history of esophageal stricture dilation: EGD with dilation tomorrow. C. XIANG: - Cause unknown; no colonoscopy about 10 years - Plan colonoscopy tomorrow - IV iron x 1 given - Follow labs The procedures of colonoscopy and EGD, their indications, alternatives of barium studies and risks including perforation, bleeding, infection, reaction to medication as well as the possible need for blood or surgery were discussed with the patient prior to the procedure. The patient voices understanding, agrees to proceed and provides informed consent. Further recommendations per Dr. Carter tomorrow. Thanks, [facility] [phone] Subjective Date/time seen: 07/18/19 15:49 Objective Data Vital Signs Vital Signs: Vital Signs - 24 hr 07/17/19 16:00 07/17/19 20:00 07/17/19 21:55 Temperature 37.1 C Pulse Rate 87 100 96 Respiratory Rate 20 Blood Pressure 133/79 Pulse Oximetry 97 07/18/19 00:00 07/18/19 04:00 07/18/19 05:49 Temperature 36.6 C Pulse Rate 75 79 88 Respiratory Rate 20 Blood Pressure 131/84 Pulse Oximetry 94 07/18/19 08:00 07/18/19 08:28 07/18/19 12:00 Temperature Pulse Rate 82 91 Respiratory Rate Blood Pressure Pulse Oximetry 91 07/18/19 14:00 Temperature 36.7 C Pulse Rate 100 Respiratory Rate 18 Blood Pressure 111/63 Pulse Oximetry 95 Intake/Output Intake/Output: Intake & Output 07/15/19 07/16/19 07/17/19 07/18/19 23:59 23:59 23:59 23:59 Intake Total 1000 3986 1110 1080 Output Total 800 1300 Balance 1000 3186 -190 1080 Meds/Results Medications: Active Medications Generic Name Dose Route Start Last Admin Trade Name Freq PRN Reason Stop Dose Admin Buspirone HCl 15 mg 07/16/19 09:00 07/18/19 13:36 Buspar PO 15 mg TID DELMAR Administration Dextrose 12.5 gm 01/03/20 02:46 07/16/19 11:39 Dextrose 50% Syringe IV PUSH 12.5 gm PRN PRN Administration Hypoglycemia Protocol Ferrous Sulfate 324 mg 07/16/19 16:55 07/17/19 09:52 Ferrous Sulfate PO Not Given DAILY DELMAR Furosemide 40 mg 07/16/19 09:00 07/18/19 09:29 Lasix Tablet PO 40 mg DAILY DELMAR Administration Glucagon 1 mg 07/16/19 02:46 Glucagon For Inj IM PRN PRN Hypoglycemia Protocol Glucose 15 gm 07/16/19 12:09 07/18/19 09:30 Glutose 15 PO 15 gm PRN PRN Administration Hypoglycemia Protocol Hydroxyzine HCl 25 mg 07/16/19 04:19 Atarax Tablet PO Q8H PRN Itching Dextrose 1,000 mls @ 100 mls/hr 07/16/19 02:46 Dextrose 5% 1,000 Ml IVPB PRN PRN Hypoglycemia Protocol Insulin Aspart 2 - 5 units 07/16/19 08:00 07/18/19 13:35 Novolog SUB[facility]Q Not [facility] Protocol Loratadine 5 mg 07/18/19 14:05 Claritin PO QAM DELMAR Lorazepam 0.5 mg 07/17/19 15:19 07/18/19 02:42 Ativan IV PUSH 0.5 mg Q8H PRN Administration Anxiety Pantoprazole Sodium 40 mg 07/16/19 10:25 07/18/19 09:30 Protonix Iv IV PUSH 40 mg QAM DELMAR Administration Phenol 1 spray 07/17/19 15:18 07/17/19 17:56 Chloraseptic [place] MUCOUS MEM 1 spray PRN PRN Administration Sore Throat Pregabalin 75 mg 07/16/19 09:00 07/18/19 09:30 Lyrica PO 75 mg BID DELMAR Administration Simvastatin 20 mg 07/16/19 09:00 07/18/19 09:30 Zocor PO 20 mg DAILY DELMAR Administration Tramadol HCl 50 mg 07/17/19 18:29 07/18/19 11:40 Ultram PO 50 mg Q6H PRN Administration Pain Rated 4-6 Radiology Results: ITS Impressions Abdomen X-Ray 07/16/19 11:47 IMPRESSION: 1. Nonobstructive bowel gas pattern. Labs Labs: Laboratory R
[2019-07-18] MEDS: LORATADINE 5 MG TABLET PO (16:13)
[2019-07-18 16:29] LABS: Glucose Point of Care 87 (65-105)
--- NOTE | 2019-07-18 16:57 | PC.NURSE ---
BERNARDO GILLESPIE NOTIFIED OF GLUCOSE 48, NEW ORDERS RECEIVED.
[2019-07-18 18:13] LABS: Glucose Point of Care 106 (65-105)
[2019-07-18 18:13] LABS: Glucose Point of Care 64 (65-105)
[2019-07-18] MEDS: BISACODYL 5 MG TABLET EC 10 MG PO ×2 (18:56→20:37)
[2019-07-18] MEDS: DEXTROSE 5% 1,000 ML 1,000 ML 100 ML IVPB (18:57)
[2019-07-18 21:51] LABS: Glucose Point of Care 68 (65-105)
[2019-07-18 21:51] LABS: Glucose Point of Care 88 (65-105)
[2019-07-19] VITALS (8 sets, daily range): BP systolic 92–155; BP diastolic 56–96; PULSE 66–102; RESP 15–22; TEMP 36.1–36.9; O2SAT 92–100
[2019-07-19] MEDS: BISACODYL 5 MG TABLET EC 10 MG PO (02:03)
[2019-07-19 05:24] LABS: Hematocrit 30.5 % (37.0-47.0); Hemoglobin 8.6 g/dL (12.0-15.0); Mean Corpuscular HGB Conc 28.2 g/dl (32-36); Mean Corpuscular Hemoglobin 21.5 pg (26-34); Mean Corpuscular Volume 76.3 fl (80-100); Platelet Count Result 393 k/mm3 (150-375); Red Cell Distribution Width 23.2 % (11.5-14.5); White Blood Count 9.8 K/mm3 (4.5-10.0)
[2019-07-19 05:39] LABS: Blood Urea Nitrogen 15 mg/dL (7-17); Calcium 7.8 mg/dL (8.4-10.2); Carbon Dioxide 23 mmol/L (22-30); Chloride 99 mmol/L (98-107); Estimated CRCL calculation 37 ml/min; Estimated Glomerular Filt Rate 55; Glucose 112 mg/dL (65-105); Magnesium 2.1 mg/dL (1.6-2.3); Potassium 3.6 mmol/L (3.4-5.0); Sodium 132 mmol/L (137-145)
[2019-07-19 06:57] LABS: Glucose Point of Care 26 (65-105)
[2019-07-19 06:57] LABS: Glucose Point of Care < 20 (65-105)
[2019-07-19 06:57] LABS: Glucose Point of Care 108 (65-105)
[2019-07-19 07:07] LABS: Glucose 105 mg/dL (65-105)
--- NOTE | 2019-07-19 07:45 | PC.NURSE ---
Pt to GI lab via stretcher, IV intact.
--- NOTE | 2019-07-19 08:22 | WPDANESEPPF ---
Anes - Initial Pre Proc Eval Procedure: Operation Date: 07/19/19 08:30 Proposed Procedures p Esophagogastroduodenoscopy & Colonoscopy - Juventino Carter MD Date/Time: 07/19/19 08:22 Surgeon: EHSAN Mcclure Pre Op Diagnosis: Nausea, vomiting, dizziness and weakness++ Patient Data Age: 68 Gender: F Height: 5 ft 6 in Weight: 48.2 kg Last Vital Signs Temp 36.3 C L 07/19/19 04:00 Pulse 84 07/19/19 04:00 Resp 20 07/19/19 04:00 BP 130/83 07/19/19 04:00 Pulse Ox 96 07/19/19 04:00 Allergies Allergy/AdvReac Type Severity Reaction Status Date / Time No Known Allergies Allergy Unverified 07/19/19 08:11 Home Medications Medication Instructions Recorded Confirmed Type buspirone 15 mg PO TID 07/16/19 07/16/19 History furosemide 40 mg PO DAILY 07/16/19 07/16/19 History hydroxyzine HCl 25 mg PO Q8H PRN 07/16/19 07/16/19 History pantoprazole 40 mg PO DAILY 07/16/19 07/16/19 History pregabalin 75 mg PO BID 07/16/19 07/16/19 History simvastatin 20 mg PO DAILY 07/16/19 07/16/19 History sitagliptin [Januvia] 50 mg PO DAILY 07/16/19 07/16/19 History Laboratory Tests 07/18/19 07/18/19 07/18/19 09:22 10:05 13:07 WBC RBC Hgb 9.2 g/dL L g/dL (12.0-15.0) Hct 32.4 % L % (37.0-47.0) MCV MCH MCHC RDW Plt Count MPV Sodium Potassium Chloride Carbon Dioxide BUN Creatinine Estim Creat Clear Calc Estimated GFR Glucose POC Capillary Glucose 48 mg/dl L* mg/dl 149 mg/dl H mg/dl (65-105) (65-105) Calcium Magnesium 07/18/19 07/18/19 07/18/19 13:34 16:11 16:56 WBC RBC Hgb Hct MCV MCH MCHC RDW Plt Count MPV Sodium Potassium Chloride Carbon Dioxide BUN Creatinine Estim Creat Clear Calc Estimated GFR Glucose POC Capillary Glucose 108 mg/dl mg/dl 87 mg/dl mg/dl 64 mg/dl L mg/dl (65-105) (65-105) (65-105) Calcium Magnesium 07/18/19 07/18/19 07/18/19 17:58 21:23 21:46 WBC RBC Hgb Hct MCV MCH MCHC RDW Plt Count MPV Sodium Potassium Chloride Carbon Dioxide BUN Creatinine Estim Creat Clear Calc Estimated GFR Glucose POC Capillary Glucose 106 mg/dl mg/dl 68 mg/dl mg/dl 88 mg/dl mg/dl (65-105) (65-105) (65-105) Calcium Magnesium 07/19/19 07/19/19 07/19/19 05:04 05:04 06:30 WBC 9.8 K/mm3 K/mm3 (4.5-10.0) RBC 4.00 M/mm3 L M/mm3 (4.2-5.4) Hgb 8.6 g/dL L g/dL (12.0-15.0) Hct 30.5 % L % (37.0-47.0) MCV 76.3 fl L fl (80-100) MCH 21.5 pg L pg (26-34) MCHC 28.2 g/dl L g/dl (32-36) RDW 23.2 % H % (11.5-14.5) Plt Count 393 k/mm3 H k/mm3 (150-375) MPV 9.0 fl fl (7.4-10.4) Sodium 132 mmol/L L mmol/L (137-145) Potassium 3.6 mmol/L mmol/L (3.4-5.0) Chloride 99 mmol/L mmol/L (98-107) Carbon Dioxide 23 mmol/L mmol/L (22-30) BUN 15 mg/dL mg/dL (7-17) Creatinine 1.00 mg/dL mg/dL (0.7-1.0) Estim Creat Clear Calc 37 ml/min ml/min Estimated GFR 55 L (59 - ) Glucose 112 mg/dL H mg/dL (65-105) POC Capillary Glucose 26 mg/dl L* mg/dl (65-105) Calcium 7.8 mg/dL L mg/dL (8.4-
[2019-07-19] MEDS: LACTATED RINGERS 1,000 ML 150 ML IV CONT (09:20)
[2019-07-19] MEDS: BENZOCAINE (*SP) 60 ML SPRAY CAN (HURRICAINE) 1 SPRAY MUCOUS MEM (09:27)
[2019-07-19] MEDS: DEXTROSE 50% 25 GM/50 ML SYRINGE IV PUSH (11:09)
[2019-07-19 11:13] LABS: Glucose Point of Care 50 (65-105)
[2019-07-19 11:28] LABS: Glucose Point of Care 55 (65-105)
--- NOTE | 2019-07-19 11:29 | SUR.PHASEII ---
BLOOD SUGAR RECHECKED AFTER 25GM OF DEXTROSE. PATIENT ALSO HAD A DRINK OF APPLE JUICE. PATIENT STATES SHE FEELS FINE, AND HAS NO SIGNS OR SYMPTOMS OF LOW BLOOD SUGAR. VERIFIED WITH DR. RILEY, GAVE OK TO TAKE PATIENT BACK UP TO THE FLOOR.
[2019-07-19 11:51] LABS: Glucose Point of Care 106 (65-105)
--- NOTE | 2019-07-19 11:54 | PCDIET ---
Nutrition Follow-Up Complete: Inadequate Oral Intake as related to Nausea/Vomitting as related to poor po intake and weight loss of 10% in the past 6 months Adequate Intake of at least 75% of meals Goal:progressing towards goal. Pt current nutrition is clear liquids. Nutrition recommendation: Agree Last recorded weight is 48.2 kg. Bowel Motility:+BM Labs Reviewed:GFR 55,Na 132 Meds Noted:Nelson Chavez Additional Notes: Colonoscopy today. Patient has been NPO /Clear liquids x 4 days. Recommend advancing to diabetic consistent carb diet when able to tolerate. Will montior every 3 days.
--- NOTE | 2019-07-19 12:00 | PC.NURSE ---
Pt returned from GI lab.
[2019-07-19] MEDS: SIMVASTATIN 20 MG TABLET PO (12:41)
[2019-07-19] MEDS: PREGABALIN 75 MG CAPSULE PO ×2 (12:41→20:56)
[2019-07-19] MEDS: LORATADINE 5 MG TABLET PO (12:41)
[2019-07-19] MEDS: FUROSEMIDE 40 MG TABLET PO (12:41)
[2019-07-19] MEDS: busPIRone HCL 5 MG TABLET 15 MG PO ×2 (12:41→17:39)
--- NOTE | 2019-07-19 14:24 | PCOTNOTE ---
Attempted to see patient. Going down for a test. Will continue to attempt.
--- NOTE | 2019-07-19 15:11 | PCPTNOTE ---
The PT treatment was unable to be completed today due to patient out of room for procedure. Will continue per Plan of Care frequency and duration.
[2019-07-19] MEDS: DEXTROSE 5%/0.9% SOD CHL 1,000 ML 75 ML IV CONT (17:36)
[2019-07-19] MEDS: PANTOPRAZOLE SODIUM IV 40 MG VIAL IV PUSH (17:39)
--- NOTE | 2019-07-19 18:35 | PM.IMPN ---
Progress Note: A&P Assessment and Plan (1) Nausea & vomiting: Qualifiers: Vomiting Intractability: non-intractable Vomiting type: unspecified Qualified Code(s): R11.2 - Nausea with vomiting, unspecified Code(s): R11.2 - Nausea with vomiting, unspecified Status: Acute Assessment and Plan: Patient reports post-prandial regurgitation. Reports a long history of vomiting off and on but symptoms worsened over the last 1 week. She has seen Dr Carter in the past and was found to have esophageal web on EGD Apr 2016 which was dilated. Consulted Dr Carter and appreciate his recommendations. Continue protonix BID, antiemetics PRN. Discussed case with Dr Carter. He agrees for full liquid diet. EGD shows esophageal ulcerations and stricture, gastric ulcer with stigmata of bleeding. Her small stomach due to history of bypass causing a gastric outlet obstruction. (2) Symptomatic anemia: Code(s): D64.9 - Anemia, unspecified Status: Acute Assessment and Plan: Hgb 7.3 on arrival and received 1 unit packed RBC. H&H remains low but stable. She does have a history of gastric bypass in 2006 and previous records show she has had anemia in the past, XIANG possibly 2/2 poor absorption after GI surgery. IV iron was given. Consider starting oral iron supplementation after discharge, however she will have upcoming repeat EGD and colonoscopy. (3) Diabetes: Qualifiers: Diabetes mellitus complication status: without complication Diabetes mellitus intermodal truck driver insulin use: without intermodal truck driver use Diabetes mellitus type: type 2 Qualified Code(s): E11.9 - Type 2 diabetes mellitus without complications Code(s): E11.9 - Type 2 diabetes mellitus without complications Status: Chronic Assessment and Plan: Hold home Januvia. Monitor with accu-cheks and cover with SSI. With some hypoglycemia and protocol was utilized. Blood sugars markedly low this morning, also being drawn by fingersticks and she has poor circulation in her fingers clinically appears consistent with Raynaud's phenomenon and not sure that these were accurate. Continue D5 in IV fluids. RN notes Accu-Cheks are being drawn from other sites besides her fingers. (4) HTN (hypertension): Qualifiers: Hypertension type: unspecified Qualified Code(s): I10 - Essential (primary) hypertension Code(s): I10 - Essential (primary) hypertension Status: Chronic Assessment and Plan: Stable. (5) Bacteriuria: Code(s): R82.71 - Bacteriuria Status: Acute Assessment and Plan: Rocephin was started in the ED in the setting of abnormal urinalysis. Pt is asymptomatic. Urine culture is unremarkable. Rocephin stopped. (6) Hypokalemia: Code(s): E87.6 - Hypokalemia Status: Acute Assessment and Plan: Potassium 3.6 today. Monitor. likely associated with GI loss. (7) Major depressive disorder: Qualifiers: Active/Remission status: remission status unspecified Major depression recurrence: unspecified whether recurrent Qualified Code(s): F32.9 - Major depressive disorder, single episode, unspecified Code(s): F32.9 - Major depressive disorder, single episode, unspecified Status: Acute Assessment and Plan: Continue home Buspar. She is less anxious today. Low dose Ativan PRN. (8) DVT prophylaxis: Code(s): Z29.9 - Encounter for prophylactic measures, unspecified Status: Acute Assessment and Plan: SCDs Subjective Date/time seen: 07/19/19 1500 Interval history: Ms. Johnson is a 68yo F admitted with anemia and vomiting, dysphagia. She is seen in follow up after EGD. She fell in the bathroom while getting washed up this afternoon and
[2019-07-19 19:33] LABS: Glucose Point of Care 167 (65-105)
[2019-07-19] MEDS: hydrOXYzine HCL 25 MG TABLET PO (21:19)
[2019-07-20 01:18] LABS: Glucose Point of Care 86 (65-105)
[2019-07-20 05:49] VITALS: BP 111/60; PULSE 82; RESP 18; TEMP 36.4; O2SAT 94
[2019-07-20 05:49] LABS: Hematocrit 25.1 % (37.0-47.0); Hemoglobin 7.2 g/dL (12.0-15.0); Mean Corpuscular HGB Conc 28.7 g/dl (32-36); Mean Corpuscular Hemoglobin 21.9 pg (26-34); Mean Corpuscular Volume 76.3 fl (80-100); Mean Platelet Volume 9.3 fl (7.4-10.4); Platelet Count Result 344 k/mm3 (150-375); Red Blood Count 3.29 M/mm3 (4.2-5.4); Red Cell Distribution Width 23.2 % (11.5-14.5); White Blood Count 9.3 K/mm3 (4.5-10.0)
[2019-07-20 06:03] LABS: Blood Urea Nitrogen 11 mg/dL (7-17); Calcium 7.2 mg/dL (8.4-10.2); Carbon Dioxide 23 mmol/L (22-30); Chloride 107 mmol/L (98-107); Estimated CRCL calculation 37 ml/min; Estimated Glomerular Filt Rate 55; Glucose 83 mg/dL (65-105); Magnesium 1.7 mg/dL (1.6-2.3); Potassium 3.2 mmol/L (3.4-5.0); Sodium 137 mmol/L (137-145)
[2019-07-20 06:49] LABS: Glucose Point of Care 84 (65-105)
[2019-07-20 07:41] LABS: Platelet Estimate Adequate (Adequate)
[2019-07-20 07:42] LABS: Hypochromasia 2+ (NORMAL)
[2019-07-20 07:43] LABS: Microcytosis 2+ (NORMAL); Ovalocytes 1+ (NORMAL); Poikilocytosis 2+ (NORMAL); Schistocytes 1+ (NORMAL); Toxic Granulation Present (NORMAL)
[2019-07-20 07:44] LABS: Helmet Cells 1+ (NORMAL)
--- NOTE | 2019-07-20 08:02 | WPDANESPN ---
Anes - Prog Note Post-Op Date/Time: 07/20/19 08:02 Cardiovascular status: normal Respiratory status: normal and other (NC O2) Airway patency: baseline Mental status: baseline Post-Op hydration status: normal Vital Signs: Last Vital Signs Temp 97.5 F L 07/20/19 05:49 Pulse 82 07/20/19 05:49 Resp 18 07/20/19 05:49 BP 111/60 07/20/19 05:49 Pulse Ox 94 07/20/19 05:49 I/O: Intake & Output 07/19/19 07/20/19 07/20/19 23:59 07:59 15:59 Intake Total 560 800 Output Total 601 Balance 560 199 Laboratory Tests 07/20/19 05:31 07/20/19 05:31 07/19/19 07/19/19 07/19/19 10:59 11:23 11:47 WBC RBC Hgb Hct MCV MCH MCHC RDW Plt Count MPV Immature Gran % (Auto) Neut % (Auto) Lymph % (Auto) Cassia % (Auto) Eos % (Auto) Baso % (Auto) Lymph # (Auto) Cassia # (Auto) Eos # (Auto) Baso # (Auto) Abs Immat Gran (auto) Absolute Neuts (auto) Absolute Nucleated RBC Nucleated RBC % Toxic Granulation Platelet Estimate Hypochromasia Poikilocytosis Microcytosis Ovalocytes Helmet Cells Schistocytes Sodium Potassium Chloride Carbon Dioxide BUN Creatinine Estim Creat Clear Calc Estimated GFR Glucose POC Capillary Glucose 50 L* 55 L* 106 Calcium Phosphorus Magnesium Stl Occult Blood (IFOB) 07/19/19 07/19/19 07/20/19 17:43 21:04 05:31 WBC 9.3 RBC 3.29 L Hgb 7.2 L Hct 25.1 L MCV 76.3 L MCH 21.9 L MCHC 28.7 L RDW 23.2 H Plt Count 344 MPV 9.3 Immature Gran % (Auto) Not Reportable Neut % (Auto) Not Reportable Lymph % (Auto) Not Reportable Cassia % (Auto) Not Reportable Eos % (Auto) Not Reportable Baso % (Auto) Not Reportable Lymph # (Auto) Not Reportable Cassia # (Auto) Not Reportable Eos # (Auto) Not Reportable Baso # (Auto) Not Reportable Abs Immat Gran (auto) Not Reportable Absolute Neuts (auto) Not Reportable Absolute Nucleated RBC Not Reportable Nucleated RBC % Not Reportable Toxic Granulation Present Platelet Estimate Adequate Hypochromasia 2+ Poikilocytosis 2+ Microcytosis 2+ Ovalocytes 1+ Helmet Cells 1+ Schistocytes 1+ Sodium Potassium Chloride Carbon Dioxide BUN Creatinine Estim Creat Clear Calc Estimated GFR Glucose POC Capillary Glucose 167 H 86 Calcium Phosphorus Magnesium Stl Occult Blood (IFOB) 07/20/19 07/20/19 07/20/19 05:31 06:46 06:50 WBC RBC Hgb Hct MCV MCH MCHC RDW Plt Count MPV Immature Gran % (Auto) Neut % (Auto) Lymph % (Auto) Cassia % (Auto) Eos % (Auto) Baso % (Auto) Lymph # (Auto) Cassia # (Auto) Eos # (Auto) Baso # (Auto) Abs Immat Gran (auto) Absolute Neuts (auto) Absolute Nucleated RBC Nucleated RBC % Toxic Granulation Platelet Estimate Hypochromasia Poikilocytosis Microcytosis Ovalocytes Helmet Cells Schistocytes Sodium 137 Potassium 3.2 L Chloride 107 Carbon Dioxide 23 BUN 11 Creatinine 1.00 Estim Creat Clear Calc 37 Estimated GFR 55 L Glucose 83 POC Capillary Glucose 84 Calcium 7.2 L Phosphorus 4.0 Magnesium 1.7 Stl Occult Blood (IFOB) Pending Post-procedural complaints: none Patient Feedback: Patient satisfied with anesthetic care.
[2019-07-20] MEDS: DEXTROSE 5%/LACTATED RINGERS 1,000 ML 75 ML IV CONT (08:21)
[2019-07-20] MEDS: MAGNESIUM SULF 2 GM/WATER 50ML 2 GM/50 ML BAG IVPB (08:23)
[2019-07-20] MEDS: POTASSIUM CHLORIDE 20 MEQ PACKET (FOR LIQUID) 40 MEQ PO (08:27)
[2019-07-20 08:32] LABS: Glucose Point of Care 69 (65-105)
[2019-07-20] MEDS: busPIRone HCL 5 MG TABLET 15 MG PO ×2 (08:32→12:43)
[2019-07-20] MEDS: PREGABALIN 75 MG CAPSULE PO (08:32)
[2019-07-20] MEDS: FUROSEMIDE 40 MG TABLET PO (08:32)
[2019-07-20] MEDS: LORATADINE 5 MG TABLET PO (08:32)
[2019-07-20] MEDS: PANTOPRAZOLE SODIUM IV 40 MG VIAL IV PUSH (08:33)
[2019-07-20] MEDS: SIMVASTATIN 20 MG TABLET PO (08:33)
[2019-07-20] MEDS: GLUCOSE ORAL GEL 15 GM OF GLUCSE IN 37.5 GM TUBE PO (08:33)
[2019-07-20 09:14] LABS: Glucose Point of Care 87 (65-105)
[2019-07-20 09:27] LABS: Hematocrit 30.6 % (37.0-47.0); Hemoglobin 8.7 g/dL (12.0-15.0)
[2019-07-20 09:47] LABS: Hemoglobin A1C 5.2 % (<5.7)
--- NOTE | 2019-07-20 09:53 | WPDGIPROGNO ---
Progress Note: A&P Additional Plan Patient is tolerated full liquid diet without difficulty. Patient wants to eat more solid food however. She denies abdominal pain. No obvious GI blood loss. Physical exam reveals her to be alert. Comfortable at rest. Vital signs stable. Abdomen is soft nontender with no organomegaly. CBC with a hemoglobin of 8.7 hematocrit 30.6 MCV of 76 she is iron deficient. Endoscopy yesterday revealed previous gastric bypass. She has small-bowel ulceration distal to the very small stomach. This is causing a gastric outlet obstruction. Additionally she has ulcerative esophagitis with distal esophageal stricture ring. Biopsies were taken and are pending. Grossly this appeared to be benign disease. Because of the gastric outlet obstruction and small stomach from previous gastric bypass patient should remain on full liquid diet. High-dose proton pump inhibitors are advised because of the ulceration causing a blockage. Follow-up EGD is anticipated in 1-2 months. She may be discharged if full liquid diet as tolerated. And should remain on high-dose proton pump inhibitors. She should avoid nonsteroidal anti-inflammatory agents. Iron replacement is advised for treatment of her iron deficiency. Subjective Date/time seen: 07/20/19 09:53 Objective Data Vital Signs Vital Signs: Vital Signs - 24 hr 07/19/19 10:12 07/19/19 10:22 07/19/19 10:32 Temperature Pulse Rate 68 66 68 Respiratory Rate 15 22 H 16 Blood Pressure 99/56 L 112/67 146/96 H Pulse Oximetry 99 98 97 07/19/19 14:00 07/19/19 15:26 07/19/19 22:00 Temperature 36.9 C 36.9 C 36.1 C L Pulse Rate 102 H 102 H 92 Respiratory Rate 16 16 20 Blood Pressure 116/73 116/93 H 92/69 L Pulse Oximetry 96 96 100 07/20/19 05:49 Temperature 36.4 C L Pulse Rate 82 Respiratory Rate 18 Blood Pressure 111/60 Pulse Oximetry 94 Intake/Output Intake/Output: Intake & Output 07/17/19 07/18/19 07/19/19 07/20/19 23:59 23:59 23:59 23:59 Intake Total 1110 2230 1340 2120 Output Total 1300 1150 601 Balance -190 1080 1340 1519 Meds/Results Medications: Active Medications Generic Name Dose Route Start Last Admin Trade Name Freq PRN Reason Stop Dose Admin Buspirone HCl 15 mg 07/16/19 09:00 07/20/19 08:32 Buspar PO 15 mg TID DELMAR Administration Dextrose 12.5 gm 07/16/19 02:46 07/19/19 11:09 Dextrose 50% Syringe IV PUSH 25 gm PRN PRN Administration Hypoglycemia Protocol Furosemide 40 mg 07/16/19 09:00 07/20/19 08:32 Lasix Tablet PO 40 mg DAILY DELMAR Administration Glucagon 1 mg 07/16/19 02:46 Glucagon For Inj IM PRN PRN Hypoglycemia Protocol Glucose 15 gm 07/16/19 12:09 07/20/19 08:33 Glutose 15 PO 15 gm PRN PRN Administration Hypoglycemia Protocol Hydroxyzine HCl 25 mg 07/16/19 04:19 07/19/19 21:19 Atarax Tablet PO 25 mg Q8H PRN Administration Itching Dextrose 1,000 mls @ 100 mls/hr 07/16/19 02:46 07/20/19 08:30 Dextrose 5% 1,000 Ml IVPB Infused PRN PRN Infusion Hypoglycemia Protocol Dextrose/Lactated Ringer's 1,000 mls @ 75 mls/hr 07/20/19 07:45 07/20/19 08:21 Dextrose 5%/Lactated Ringers IV CONT 75 mls/hr .[id number] DELMAR Administration Insulin Aspart 2 - 5 units 07/16/19 08:00 07/20/19 08:29 Novolog SUB-Q Not Given TIDWM DELMAR Protocol Loratadine 5 mg 07/18/19 14:05 07/20/19 08:32 Claritin PO 5 mg QAM DELMAR Administration Lorazepam 0.5 mg 07/17/19 15:19 07/18/19 02:42 Ativan IV PUSH 0.5 mg Q8H PRN Administration Anxiety Pantoprazole Sodium 40 mg 07/19/19 17:00 07/20/19 08:33 Protonix Iv IV PUSH 40 mg BID DELMAR Administration Phenol 1 spray 07/17/19 15:18 07/17/19 17:56 Chloraseptic [place] MUCOUS MEM 1 spray PRN PRN Administration Sore Throat Pregabalin 75 mg 07/16/19 09:00 07/20/19 08:32 Lyrica PO 75 mg BID [facility] Administratio
[2019-07-20 10:04] LABS: IFOB Positive Control Positive; Immunochemical Fecal Occult Bl Negative (N)
[2019-07-20 12:49] LABS: Glucose Point of Care 86 (65-105)
[2019-07-20 14:00] VITALS: BP 119/78; PULSE 90; RESP 18; TEMP 36.2; O2SAT 98
--- NOTE | 2019-07-20 14:16 | PM.DS ---
DS: Diagnosis Admitting Diagnosis Admitting Diagnosis: Anemia, unspecified Discharge Diagnosis (1) Esophageal ulcer: Code(s): K22.10 - Ulcer of esophagus without bleeding Status: Acute Assessment and Plan: ----discharged 40 mg of Protonix b.i.d. plan to follow up with GI for re-scope in 1 month. Biopsies show acute ulcer with no cancer suspected.. (2) Gastric ulcer: Code(s): K25.9 - Gastric ulcer, unspecified as acute or chronic, without hemorrhage or perforation Status: Acute (3) Esophagitis: Code(s): K20.9 - Esophagitis, unspecified Status: Acute (4) Nausea & vomiting: Qualifiers: Vomiting Intractability: non-intractable Vomiting type: unspecified Qualified Code(s): R11.2 - Nausea with vomiting, unspecified Code(s): R11.2 - Nausea with vomiting, unspecified Status: Acute (5) Symptomatic anemia: Code(s): D64.9 - Anemia, unspecified Status: Acute Assessment and Plan: Hgb 7.3 on arrival and received 1 unit packed RBC. H&H remains low but stable. She does have a history of gastric bypass in 2006 and previous records show she has had anemia in the past, XIANG possibly 2/2 poor absorption after GI surgery. IV iron was given. oral iron started on discharge. Likely worsened d/t previous slow bleed of the ulcers mentioend above (6) Diabetes: Qualifiers: Diabetes mellitus type: type 2 Diabetes mellitus emt intermediate insulin use: without emt intermediate use Diabetes mellitus complication status: without complication Qualified Code(s): E11.9 - Type 2 diabetes mellitus without complications Code(s): E11.9 - Type 2 diabetes mellitus without complications Status: Chronic Assessment and Plan: Januvia has been stopped. Patient given a glucometer and has been told to check her glucose 3 times a day. I talked to her about this too. (7) HTN (hypertension): Qualifiers: Hypertension type: unspecified Qualified Code(s): I10 - Essential (primary) hypertension Code(s): I10 - Essential (primary) hypertension Status: Chronic Assessment and Plan: Stable. (8) Bacteriuria: Code(s): R82.71 - Bacteriuria Status: Acute Assessment and Plan: Urine culture negative. No antibiotics needed (9) Hypokalemia: Code(s): E87.6 - Hypokalemia Status: Acute Assessment and Plan: Replaced. (10) Major depressive disorder: Qualifiers: Major depression recurrence: unspecified whether recurrent Active/Remission status: remission status unspecified Qualified Code(s): F32.9 - Major depressive disorder, single episode, unspecified Code(s): F32.9 - Major depressive disorder, single episode, unspecified Status: Acute Assessment and Plan: Continue home meds (11) DVT prophylaxis: Code(s): Z29.9 - Encounter for prophylactic measures, unspecified Status: Acute Assessment and Plan: SCDs DS: Summary Hospital Course Reason for hospitalization: Patient is a 68-year-old female who presented emergency room on July 15 for nausea and vomiting with decreased appetite., temperature 36.9?, pulse 91, respiratory rate 18, blood pressure 165/96, pulse ox 100 on room air. White blood cell count 13.3, hemoglobin 7.3, hematocrit 26.4, platelets 455. BMP within normal limits with the exception of creatinine will slightly elevated 1.1. Abdominal x-ray showed nonobstructive bowel gas pattern. Her UA looks suspicious for UTI and she was started on antibiotics. These were discontinued once her culture came back negative. Patient was admitted to the hospitalist service and observed. She was transfused 1 unit of packed red blood cells since her hemoglobin was low and she was symptomatic. Patient was observed initially the nausea vomiting was thought to be due to the possible UTI. Once the culture came back negative and
--- NOTE | 2019-07-20 15:07 | PCDIET ---
Nutrition edu and handouts provided on a full liquid diet. See nutritional teaching for details.
--- NOTE | 2019-07-23 10:24 | PC.NURSE ---
Pathology report duodenal ulcer- nonspecific acute duodenitis with benign acute ulcer. Esophageal ulcer - nonspecific benign acute ulcer. No evidence of neoplasm. IRINA Sorensen.
== END 2019-07-20 19:21 | disposition home or self-care (01) | DRG 381 ==
LOC: ANHED 07-16 01:40 → ANH2MED 07-16 03:05
PROVIDERS: Emergency Medicine; Internal Medicine Gastroenterology; Physician Assistant; Admitting Provider Family Medicine; Emergency Provider Emergency Medicine; PCP Physician Assistant; Visit Provider Physician Assistant
PROC: 0DJ08ZZ Inspection of Upper Intestinal Tract, Via Natural or Artificial Opening Endoscopic (ICD-10-PCS; CPT 43235; principal; 2019-07-19 08:30)
DX: K22.10 Ulcer of esophagus without bleeding (principal); K31.1 Adult hypertrophic pyloric stenosis; K22.2 Esophageal obstruction; S09.90XA Unspecified injury of head, initial encounter; W19.XXXA Unspecified fall, initial encounter; E11.42 Type 2 diabetes mellitus with diabetic polyneuropathy; D50.9 Iron deficiency anemia, unspecified; D47.3 Essential (hemorrhagic) thrombocythemia; E03.9 Hypothyroidism, unspecified; K21.0 Gastro-esophageal reflux disease with esophagitis; K31.89 Other diseases of stomach and duodenum; K29.70 Gastritis, unspecified, without bleeding; K28.3 Acute gastrojejunal ulcer without hemorrhage or perforation; Z98.84 Bariatric surgery status; K57.30 Diverticulosis of large intestine without perforation or abscess without bleeding; R82.71 Bacteriuria; E87.6 Hypokalemia; I10 Essential (primary) hypertension; E78.5 Hyperlipidemia, unspecified; F32.9 Major depressive disorder, single episode, unspecified; Z28.21 Immunization not carried out because of patient refusal; I25.2 Old myocardial infarction; Z78.0 Asymptomatic menopausal state; Z79.84 Long term (current) use of oral hypoglycemic drugs; Z79.899 Other long term (current) drug therapy; Z86.73 Personal history of transient ischemic attack (TIA), and cerebral infarction without residual deficits
CPT/HCPCS: 43239; 45378; 36415; 36430; 70450; 74019; 80048; 80053; 81001; 82247; 82248; 82274; 82607; 82728; 82746; 82947; 83010; 83036; 83540; 83550; 83615; 83690; 83735; 84100; 84443; 84466; 84484; 85014; 85018; 85025; 85027; 85046; 86850; 86900; 86901; 86920; 87086; 87088; 88305; 93005; 96361; 96365; 96366; 96367; 96368; 96374; 96375; 96376; 97110; 97161; 97165; 97530; 97535; 99285; A9270; C9113; G0378; J0131; J0360; J0696; J1756; J2060; J2405; J2704; J3475; J3480; J7030; J7042; J7050; J7070; J7120; J7121; P9016

== ENCOUNTER 2019-08-11 14:36 | Outpatient (CLI) | payer OTHER, SELFPAY ==
[2019-08-11 15:32] LABS: Hematocrit 28.1 % (37.0-47.0); Hemoglobin 8.3 g/dL (12.0-15.0)
[2019-08-11 17:30] VITALS: BP 134/81; PULSE 78; RESP 18; TEMP 37.6; O2SAT 100
[2019-08-11 17:45] VITALS: BP 148/79; PULSE 77; RESP 16; TEMP 37.7; O2SAT 100
[2019-08-11 18:47] VITALS: BP 174/80; PULSE 98; RESP 18; TEMP 36.9; O2SAT 100
[2019-08-11 19:45] VITALS: BP 118/57; PULSE 84; RESP 18; TEMP 37.3; O2SAT 97
== END 2019-08-11 14:37 | disposition home or self-care (01) ==
PROVIDERS: PCP Physician Assistant; Visit Provider Family Medicine
DX: D64.9 Anemia, unspecified (principal)
CPT/HCPCS: 36415; 36430; 85014; 85018; 86644; 86850; 86900; 86901; 86923; J7050; P9016

== ENCOUNTER 2019-08-12 10:40 | Emergency (ER) | payer OTHER, SELFPAY ==
--- NOTE | ~2019-08-12 | XR_ITS ---
EXAMINATION: XR chest 2V EXAM DATE: 08/12/2019 10:59 INDICATION: Shortness of breath upon exertion. TECHNIQUE: Frontal and lateral projections of the chest obtained and reviewed. Comparison is made to prior examination from 07/28/2019. FINDINGS: The lungs are clear. There are no pleural effusions. The cardiomediastinal silhouette is within normal limits. There is no pneumothorax suspected. Mild to moderate thoracal lumbar scoliosi s. There are old right rib fractures. The bones are osteopenic. There are bony degenerative changes. Mild hyperinflation. There are cholecystectomy clips. IMPRESSION: Chronic chest findings as above. Reviewed, dictated and finalized at location B. UMER SCIENCE TEACHER
--- NOTE | ~2019-08-12 | CT_ITS ---
EXAMINATION: CTA chest PE protocol DATE: 08/12/2019 12:13 INDICATION: Dyspnea.. Recent hip surgery. TECHNIQUE: Computed tomography angiography (CTA) of the chest was performed with 100 mL Omnipaque-350 intravenous contrast timed to evaluate the pulmonary arteries. Coronal maximum intensity projection 3D-reconstructions were created by the technologist. Automated exposure control and iterative reconst ruction technique were employed. Exam dose: 215.58 mGy-cm total exam DLP. COMPARISON: 08/12/2019 AP and lateral chest FINDINGS: There is diagnostic contrast enhancement of the pulmonary arteries and no evidence of pulmo nary embolism. No thoracic aortic aneurysm or dissection. Cardiomegaly. No pericardial or pleural effusion. No hilar or mediastinal mass lesion or lymphadenopathy. There is discoid atelectasis and/or scarring in the left lower lobe and minimal bilateral lower lobe dependent atelectasis. There is a patulous esophagus. There is a small sliding hiatal hernia. There are postoperative change s of the stomach.. There is a subacute healing lateral left second rib fracture. There are bilateral old healed rib frac ture deformities. There is chronic fracture deformity at the lateral base of the left clavicle. This is slightly outer There are compression fracture deformities of undetermined age of T2, T3 and T10. There are degenerative changes of the included lower cervical spine and thoracic spine. The IMPRESSION: No evidence of pulmonary embolism Reviewed, dictated and finalized at Location A. Reviewed, dictated and finalized at location A. OMER ASSISTANCE REPRESENTATIVE
--- NOTE | 2019-08-12 10:44 | ECG_ITS ---
Measurements Intervals [place] Rate: 82 P: 15 [place]: 162 QRS: -46 QRSD: 105 T: 30 QT: 386 QTc: 453 Interpretive Statements SINUS RHYTHM LEFT ANTERIOR FASCICULAR BLOCK POOR R WAVE PROGRESSION, CONSIDER ANTERIOR INFARCT BORDERLINE ST ABNORMALITY- LATERAL LEADS BASELINE WANDER- I, III ABNORMAL ECG Electronically Signed On 08-12-2019 11:07:27 DIRECTOR OF COMPENSATION by Kenji Lassiter D.O.
[2019-08-12 10:45] VITALS: BP 137/78; PULSE 82; RESP 18; TEMP 36.7; O2SAT 92
--- NOTE | 2019-08-12 10:54 | PC.NURSE ---
unable to draw labs due to pt. taken to xy.
[2019-08-12 11:15] VITALS: PULSE 76; RESP 18
--- NOTE | 2019-08-12 11:21 | ED.GENADULT ---
HPI - General Adult General Chief complaint: Shortness of Breath/Dyspnea Stated complaint: Resolved complaint of SOB Time Seen by Provider: 08/12/19 11:17 Source: patient and RN notes reviewed Mode of arrival: EMS Limitations: no limitations History of Present Illness HPI narrative: Pt is a 69 y/o female who presents to the ED via EMS with c/o SOB starting this morning. She notes that she recently received a rt hip replacement, and states that she has since been undergoing physical therapy. Pt notes that while performing her exercises at physical therapy this morning, she suddenly developed SOB, CP, and dizziness. She describes her dizziness as lightheadedness. Pt also reports seeing spots, but notes that her symptoms are currently resolved. Pt currently denies any fever, cough, dysuria, ABD pain, or diarrhea. MD complaint: SOB Associated symptoms: chest pain and other (dizziness; lightheadedness; seeing spots) Related Data Home Medications Medication Instructions Recorded Confirmed buspirone 15 mg PO TID 07/16/19 07/28/19 furosemide 40 mg PO DAILY 07/16/19 07/28/19 hydroxyzine HCl 25 mg PO Q8H PRN 07/16/19 07/28/19 pregabalin 75 mg PO BID 07/16/19 07/28/19 simvastatin 20 mg PO DAILY 07/16/19 07/28/19 levothyroxine 112 mcg PO DAILY 07/28/19 07/28/19 Allergies Allergy/AdvReac Type Severity Reaction Status Date / Time No Known Allergies Allergy Verified 07/28/19 21:08 Review of Systems Review of Systems: All systems reviewed & are unremarkable except as noted in HPI and below Constitutional: Constitutional: Denies fever(s) Eyes: Eyes: Reports spots in vision Cardiovascular: Cardiovascular: Reports chest pain Respiratory: Respiratory: Denies cough and Reports dyspnea Gastrointestinal: Gastrointestinal: Denies abdominal pain and Denies diarrhea Genitourinary: Genitourinary: Denies dysuria Neurologic: Reports dizziness and Reports other (lightheadedness) [facility] Past Medical History Medical History Anxiety Bipolar 1 disorder Bowel obstruction Depression Diabetes DVT (deep venous thrombosis) Esophageal ulcer Foot drop GERD (gastroesophageal reflux disease) Heart attack HTN (hypertension) Hyperlipidemia Hypothyroid Peripheral neuropathy Pneumonia Post-menopausal Renal failure TIA (transient ischemic attack) Surgical History Surgical History H/O tooth extraction History of section History of cholecystectomy History of gastric bypass Social History Social History Social History: Patient lives with her . She does have 1 daughter who lives nearby with whom she interacts and 1 other daughter that she does not see often. She is a full code. She does not have a designated POA but does ask about her as well as eldest daughter, Jon Padilla be her contacts. She is a never smoker. No alcohol use. Smoking status: Never smoker Alcohol intake: never Substance use: never Gender identity (if verbalized by the patient): Female Spiritual care concerns: No Agree to blood products: Yes Comments PCP is VERNA Krueger. Exam Const: General: other (elderly) Nutritional Appearance: other (frail) Orientation/consciousness: patient oriented x3 (alert) and Other orientation findings (Alert) Limitations: no limitations HENMT: Head: normocephalic and atraumatic Resp: Effort & Inspection: normal respiratory effort Auscultation: clear to auscultation bilaterally, no rales, no rhonchi, no wheezes and other (breath sounds equal) Cardio: Rate: regular rate Rhythm: regular rhythm Heart sounds: no gallops and no murmurs GI: Inspection: non-distended GI Palp: No abdominal tenderness and Yes Soft to palpation Auscultation: other (bowel sounds present) Back/Spine/Pelvis: Back: no CVA tenderness Thoracic/Lumbar Spine: kyphos
[2019-08-12 11:33] VITALS: BP 137/88; PULSE 75; PULSE 82; RESP 17; O2SAT 94
[2019-08-12 11:49] LABS: Basophils Absolute Auto 0.1 K/mm3 (0.0-0.1); Basophils Percent Auto 0.8 % (0.2-1.2); Eosinophils Absolute Auto 0.2 K/mm3 (0-0.3); Eosinophils Percent Auto 1.9 % (0-4.4); Hematocrit 33.3 % (37.0-47.0); Hemoglobin 9.9 g/dL (12.0-15.0); Immature Granulocyte Absolute 0.07 K/mm3 (0.00-0.031); Immature Granulocyte Percent A 0.7 % (0-0.5); Lymphocytes Absolute Auto 0.62 K/mm3 (0.9-3.2); Mean Corpuscular HGB Conc 29.7 g/dl (32-36); Mean Corpuscular Hemoglobin 24.9 pg (26-34); Mean Corpuscular Volume 83.9 fl (80-100); Mean Platelet Volume 9.1 fl (7.4-10.4); Monocytes Absolute Auto 0.8 K/mm3 (0.1-0.6); Monocytes Percent Auto 7.7 % (2.6-8.5); Neutrophils Absolute Auto 8.6 K/mm3 (1.3-6.7); Neutrophils Percent Auto 82.9 % (45.5-73.1); Platelet Count Result 497 k/mm3 (150-375); Red Blood Count 3.97 M/mm3 (4.2-5.4); Red Cell Distribution Width 22.1 % (11.5-14.5); White Blood Count 10.4 K/mm3 (4.5-10.0)
[2019-08-12 12:00] LABS: Blood Urea Nitrogen 38 mg/dL (7-17); Calcium 8.3 mg/dL (8.4-10.2); Carbon Dioxide 27 mmol/L (22-30); Chloride 101 mmol/L (98-107); Estimated CRCL calculation 36 ml/min; Estimated Glomerular Filt Rate 49; Glucose 73 mg/dL (65-105); Potassium 3.5 mmol/L (3.4-5.0); Sodium 139 mmol/L (137-145)
[2019-08-12 12:04] LABS: Blood Urea Nitrogen 37 mg/dL (8-26); Estimated CRCL calculation 36 ml/min; Estimated Glomerular Filt Rate 49
[2019-08-12 12:06] LABS: Platelet Estimate Adequate (Adequate)
[2019-08-12 12:07] LABS: Hypochromasia 2+ (NORMAL); Ovalocytes 1+ (NORMAL)
[2019-08-12 12:29] VITALS: BP 132/76; PULSE 73; RESP 17; O2SAT 94
[2019-08-12 13:20] VITALS: BP 143/68; PULSE 72; RESP 12; O2SAT 94
== END 2019-08-12 14:24 ==
PROVIDERS: Emergency Provider Emergency Medicine; PCP Physician Assistant
DX: R06.00 Dyspnea, unspecified (principal); Z96.641 Presence of right artificial hip joint; F41.9 Anxiety disorder, unspecified; F31.9 Bipolar disorder, unspecified; Z86.718 Personal history of other venous thrombosis and embolism; K21.9 Gastro-esophageal reflux disease without esophagitis; I25.2 Old myocardial infarction; I10 Essential (primary) hypertension; E78.5 Hyperlipidemia, unspecified; E03.9 Hypothyroidism, unspecified; Z86.73 Personal history of transient ischemic attack (TIA), and cerebral infarction without residual deficits; N19 Unspecified kidney failure; Z98.84 Bariatric surgery status; I44.4 Left anterior fascicular block; R94.31 Abnormal electrocardiogram [ECG] [EKG]
CPT/HCPCS: 36415; 71046; 71275; 80048; 85025; 93005; 99284; Q9967

== ENCOUNTER 2019-09-14 00:13 | Day surgery (SDC) | payer OTHER, SELFPAY ==
[2019-09-10 13:07] VITALS: BMI 22.1
[2019-09-14 07:30] LABS: Glucose Point of Care 57 (65-105)
[2019-09-14] MEDS: LACTATED RINGERS 1,000 ML 150 ML IV CONT (07:39)
[2019-09-14] MEDS: AMPICILLIN 2 GM/NS 100 ML 2 GM/100 ML BAG IVPB (07:40)
--- NOTE | 2019-09-14 07:46 | WPDANESEPPF ---
Anes - Initial Pre Proc Eval Procedure: Operation Date: 09/14/19 08:00 Proposed Procedures p Esophagogastroduodenoscopy - Juventino Carter MD Date/Time: 09/14/19 07:46 Surgeon: Juventino Carter MD Pre Op Diagnosis: gastrojejunal ulcer, esophageal stricture Patient Data Age: 69 Gender: F Height: 5 ft 2 in Weight: 55 kg Allergies Allergy/AdvReac Type Severity Reaction Status Date / Time No Known Allergies Allergy Verified 09/10/19 13:01 Home Medications Medication Instructions Recorded Confirmed Type buspirone 15 mg PO TID 07/16/19 08/17/19 History furosemide 40 mg PO DAILY 07/16/19 08/17/19 History hydroxyzine HCl 25 mg PO Q8H PRN 07/16/19 08/17/19 History pregabalin 75 mg PO BID 07/16/19 08/17/19 History simvastatin 20 mg PO DAILY 07/16/19 08/17/19 History Accu-Chek Laya Plus test strp #120 each 07/20/19 08/17/19 Rx blood-glucose meter #1 each 07/20/19 08/17/19 Rx lancets [Accu-Chek Softclix #120 each 07/20/19 08/17/19 Rx Lancets] pantoprazole 40 mg PO Q12HR #60 tablet 07/20/19 08/17/19 Rx levothyroxine 112 mcg PO DAILY 07/28/19 08/17/19 History acetaminophen 1,000 mg PO Q6H PRN #30 tablet 08/09/19 08/17/19 Rx apixaban [Eliquis] 5 mg PO Q12HR #60 tablet 08/09/19 08/17/19 Rx apixaban [Eliquis] 10 mg PO Q12HR #22 tablet 08/09/19 08/17/19 Rx ferrous sulfate 324 mg PO BIDWM #60 tablet 08/09/19 08/17/19 Rx furosemide 20 mg PO 1400 #2 tablet 08/09/19 08/17/19 Rx melatonin 3 mg PO HS #30 tablet 08/09/19 08/17/19 Rx polyethylene glycol 3350 [Miralax] 17 g PO QAM #14 each 08/09/19 08/17/19 Rx Laboratory Tests 09/14/19 07:27 POC Capillary Glucose 57 mg/dl L* mg/dl (65-105) Patient hx anesthesia problems: none Family hx anesthesia problems: none [facility] Past Medical History Medical History (Updated 08/17/19 @ 09:37 by Jaclyn Morris) Anxiety Bipolar 1 disorder Bowel obstruction Chronic venous stasis dermatitis of both lower extremities Depression Diabetes DVT (deep venous thrombosis) Esophageal ulcer Foot drop GERD (gastroesophageal reflux disease) Heart attack HTN (hypertension) Hyperlipidemia Hypothyroid Osteoarthritis of right hip Peripheral neuropathy Pneumonia Post-menopausal Renal failure TIA (transient ischemic attack) Surgical History Surgical History H/O tooth extraction History of section History of cholecystectomy History of gastric bypass Family History Family History (Updated 08/17/19 @ 09:00 by Ashley Polanco [facility]) Mother Congestive heart failure Father Malignant neoplasm of prostate Cerebrovascular accident Diabetes mellitus Other Diabetes mellitus Daughter Thyroid disease Unknown Diabetes mellitus Heart disease Cancer Cerebrovascular accident Hypertension Social History Social History Social History: Patient lives with her . She does have 1 daughter who lives nearby with whom she interacts and 1 other daughter that she does not see often. She is a full code. She does not have a designated POA but does ask about her as well as eldest daughter, Jon Padilla be her contacts. She is a never smoker. No alcohol use. Smoking status: Never smoker Alcohol intake: never Substance use: never Gender identity (if verbalized by the patient): Female Spiritual care concerns: No Agree to blood products: Yes Anes - Eval Final PreProcedure Day of Procedure 09/14/19 07:46 Patient weight: thin Heart: regular rate and rhythm Lungs: clear to auscultation Airway: Mallampati scale class II Neurological: alert and oriented Last oral intake: >/= 8 hours ASA classification: IV Emergent: no Anesthetic plan: proceed Anesthesia type and monitoring: general GIVS Informed Consent: The patient's anesthetic plan and its attendant risks and benefits were discussed with the patient/fam
[2019-09-14] MEDS: DEXTROSE 5%/LACTATED RINGERS 1,000 ML 100 ML IV CONT (07:47)
--- NOTE | 2019-09-14 07:53 | WPDGICN ---
Assessment and Plan Additional Plan This is a 69-year-old white female patient seen in evaluation at the request of Anna Krueger. patient has history of gastric outlet obstruction presents today for follow-up exam. She has a history of previous gastric surgery with a very small stomach With prior gastric bypass. was found to have gastric outlet obstruction with gastro jejunal ulcer. She also had esophageal stricture ring and esophageal ulcers. She presents today for follow-up examination. She recently has been on a soft liquid diet. With high-dose proton pump inhibitor. Past medical history is significant for diabetes. Hypertension. Atherosclerotic heart disease. Arthritis of the hip. Hyperlipidemia. Hypothyroidism. Peripheral neuropathy. She has renal insufficiency. History of pneumonia. Previous surgery includes gastric bypass, cholecystectomy, . Current medications include Eliquis on hold. Iron. Lasix. Levothyroxine. Melatonin. MiraLax. Pregabalin. Simvastatin. Family history is Noncontributory. Physical exam reveals vital signs stable. HEENT exam unremarkable. Lungs are clear to auscultation and percussion. Heart is without murmur or extra sounds. Abdominal exam bowel sounds are present soft nontender with no organomegaly. Digital external exam is normal impression 1. Gastric outlet obstruction. Patient has been maintained on liquid diet. Plan is for follow-up EGD today. 2. History of gastric bypass. Post anastomotic site ulcer was identified at last endoscopy with stricturing. 3. Esophageal ulcers, esophageal stricturing. appear to be related to acid reflux on the basis of small stomach and gastric outlet obstruction. Plan is for EGD today to assess response of therapy to her outlet obstruction. Continue anti-reflux measures. Elevating head of bed at night. Frequent small meals. Long-term acid suppression advised. Further recommendations will be given after endoscopy. GI Consult Note Consult date/time: 09/14/19 07:53 HPI: Sonya Johnson is a 69 year old female [facility] Past Medical History Medical History (Updated 08/17/19 @ 09:37 by Jaclyn Morris) Anxiety Bipolar 1 disorder Bowel obstruction Chronic venous stasis dermatitis of both lower extremities Depression Diabetes DVT (deep venous thrombosis) Esophageal ulcer Foot drop GERD (gastroesophageal reflux disease) Heart attack HTN (hypertension) Hyperlipidemia Hypothyroid Osteoarthritis of right hip Peripheral neuropathy Pneumonia Post-menopausal Renal failure TIA (transient ischemic attack) Surgical History Surgical History H/O tooth extraction History of section History of cholecystectomy History of gastric bypass Family History Family History (Updated 08/17/19 @ 09:00 by Ashley Polanco [facility]) Mother Congestive heart failure Father Malignant neoplasm of prostate Cerebrovascular accident Diabetes mellitus Other Diabetes mellitus Daughter Thyroid disease Unknown Diabetes mellitus Heart disease Cancer Cerebrovascular accident Hypertension Social History Social History Social History: Patient lives with her . She does have 1 daughter who lives nearby with whom she interacts and 1 other daughter that she does not see often. She is a full code. She does not have a designated POA but does ask about her as well as eldest daughter, Jon Padilla be her contacts. She is a never smoker. No alcohol use. Smoking status: Never smoker Alcohol intake: never Substance use: never Gender identity (if verbalized by the patient): Female Spiritual care concerns: No Agree to blood products: Yes Meds Home Medications and Allergies Home Medications Medication Instructions Recorded Confirmed Type buspirone
[2019-09-14 08:10] VITALS: BP 175/93; PULSE 91; RESP 16; TEMP 37.6; O2SAT 100; BMI 23.2
[2019-09-14 08:28] VITALS: BP 218/111; PULSE 67; RESP 21; O2SAT 94
[2019-09-14 08:32] LABS: Glucose Point of Care 74 (65-105)
[2019-09-14 08:38] VITALS: BP 137/114; PULSE 67; RESP 19; O2SAT 94
[2019-09-14 08:48] VITALS: BP 153/111; PULSE 66; RESP 19; O2SAT 100
[2019-09-14 08:58] VITALS: BP 225/122; PULSE 65; RESP 19; O2SAT 100
--- NOTE | 2019-09-14 09:06 | SUR.PHASEII ---
BLOOD SUGAR CHECKED. RESULTS REPORTED TO ANESTHESIA. (Dr. Cespedes). NO ORDERS RECEIVED. BP REPORTED TO DR CESPEDES ALSO. INSTRUCTED TO TAKE BP MEDS WHEN ARRIVES HOME. DID NOT TAKE THEM THIS MORNING.
[2019-09-14 10:05] LABS: Hematocrit 36.1 % (37.0-47.0); Hemoglobin 11.1 g/dL (12.0-15.0); Mean Corpuscular HGB Conc 30.7 g/dl (32-36); Mean Corpuscular Hemoglobin 26.5 pg (26-34); Mean Corpuscular Volume 86.2 fl (80-100); Mean Platelet Volume 8.5 fl (7.4-10.4); Platelet Count Result 206 k/mm3 (150-375); Red Blood Count 4.19 M/mm3 (4.2-5.4); Red Cell Distribution Width 19.7 % (11.5-14.5); White Blood Count 5.2 K/mm3 (4.5-10.0)
== END 2019-09-14 10:17 | disposition home or self-care (01) ==
PROVIDERS: PCP Physician Assistant; Visit Provider Internal Medicine Gastroenterology
PROC: 0DJ08ZZ Inspection of Upper Intestinal Tract, Via Natural or Artificial Opening Endoscopic (ICD-10-PCS; CPT 43235; principal; 2019-09-14 08:00)
DX: K22.2 Esophageal obstruction (principal); K21.0 Gastro-esophageal reflux disease with esophagitis; K28.3 Acute gastrojejunal ulcer without hemorrhage or perforation; Z98.84 Bariatric surgery status; I10 Essential (primary) hypertension; I25.10 Atherosclerotic heart disease of native coronary artery without angina pectoris; E78.5 Hyperlipidemia, unspecified; E11.40 Type 2 diabetes mellitus with diabetic neuropathy, unspecified; E03.9 Hypothyroidism, unspecified; N28.9 Disorder of kidney and ureter, unspecified; I25.2 Old myocardial infarction; F31.9 Bipolar disorder, unspecified; F41.9 Anxiety disorder, unspecified; I87.8 Other specified disorders of veins; Z79.01 Long term (current) use of anticoagulants; Z86.718 Personal history of other venous thrombosis and embolism; Z86.73 Personal history of transient ischemic attack (TIA), and cerebral infarction without residual deficits
CPT/HCPCS: 43235; 43450; 36415; 85027; J0290; J2704; J7120; J7121

== ENCOUNTER 2020-03-29 10:53 | Inpatient (IN) | payer SELFPAY ==
[2020-03-29] VITALS (11 sets, daily range): BP systolic 160–220; BP diastolic 94–112; PULSE 69–110; RESP 14–18; TEMP 36.4–37.1; O2SAT 96–99; BMI 25.0; BMI 26.6
--- NOTE | ~2020-03-29 | XR_ITS ---
EXAMINATION: XR chest 1V DATE: 03/29/2020 11:40 INDICATION: Altered mental status TECHNIQUE: frontal view of the chest was obtained. COMPARISON: Chest radiograph and CT dated 08/12/19 FINDINGS: A few small scattered calcified nodules consistent with old granulomatous disease. No other airspace opacities, pulmonary edema, pleural effusion or pneumothorax. Cardiomegaly. Mild thoracic dextroscoli osis. A few old healed right-sided rib fractures. IMPRESSION: 1. No acute cardiopulmonary disease. 2. Cardiomegaly. Reviewed, dictated and finalized at location A.
--- NOTE | ~2020-03-29 | US_ITS ---
EXAMINATION: US carotid duplex BI DATE: 03/30/2020 12:55 INDICATION: Confusion TECHNIQUE: Grayscale, color Doppler, and pulsed Doppler images of the cervical carotid arteries were obtained. The degree of vessel stenosis is placed in one of the following categories: normal, <50%, 5 0-69%, >=70% but less than near-occlusion, near-occlusion, or total occlusion. Note that percent sten osis relative to normal distal artery lumen diameter is indirectly measured from velocity measurement s as described by Mathieu, et al. Radiology 2003; 229:340-346. COMPARISON: None. FINDINGS: RIGHT: The right common carotid artery (CCA) peak systolic velocity (PSV) is 66 cm/s. The right internal car otid artery (ICA) PSV is 77 cm/s. The right ICA end-diastolic velocity (EDV) is 24 cm/s. The right IC A/CCA PSV ratio is 1.1. Grayscale and color Doppler images yield an estimate of <50% diameter reducti on from plaque in the ICA. The external carotid artery (ECA) PSV is 55 cm/s. There is antegrade flow in the right vertebral artery. LEFT: The left CCA PSV is 69 cm/s. The left ICA PSV is 54 cm/s. The left ICA EDV is 19 cm/s. The left ICA/C CA PSV ratio is 0.8. Grayscale and color Doppler images yield an estimate of <50% diameter reduction from plaque in the ICA. The ECA PSV is 49 cm/s. There is antegrade flow in the left vertebral artery. IMPRESSION: 1. <50% stenosis in the right internal carotid artery. 2. <50% stenosis in the left internal carotid artery. Reviewed, dictated and finalized at location A.
--- NOTE | ~2020-03-29 | MR_ITS ---
EXAMINATION: MR brain/brain stem wo con EXAM DATE: 03/31/2020 12:42 INDICATION: Confusion and altered mental status. TECHNIQUE: Magnetic resonance imaging (MRI) of the brain/brain stem obtained without contrast. Sagitt al T1, axial diffusion, gradient echo (T2*), T1, T2, FLAIR sequences obtained. Comparison is made to prior examination from 09/27/2007. FINDINGS: There is punctate focus of increased diffusion weighted signal in the right centrum semiova le, frontal lobe white matter. Most likely acute infarction. There is no acute hemorrhage seen on the T2*, a hemosiderin sensitive sequence. No intraparenchymal brain mass lesion. There is mild to mode rate periventricular and subcortical T2/FLAIR signal hyperintensity, nonspecific but probably related to small vessel ischemic disease (microangiopathy). There is prominence of the sulci and ventricle s related to cerebral atrophy. There are no extra-axial collections. Flow voids are seen in the ce rebral arteries on the T2-weighted sequences consistent with their expected patency. The orbits are unremarkable. Soft tissue is unremarkable. IMPRESSION: 1. Probable punctate right frontal lobe white matter acute infarction. 2. Chronic age related findings. Reviewed, dictated and finalized at location A.
--- NOTE | ~2020-03-29 | CT_ITS ---
EXAMINATION: CT brain wo con DATE: 03/29/2020 11:29 INDICATION: Altered mental status TECHNIQUE: Computed tomography (CT) of the head was performed without intravenous contrast. Sagittal and coronal reconstructions were performed. The mA was adjusted according to patient size. Iterative reconstruction technique was employed. The dose-length product was 605.33 mGy-cm. COMPARISON: head CT dated 07/28/19 FINDINGS: No acute intracranial hemorrhage, acute infarction or abnormal extra axial fluid collection. There is mild scattered white matter hypoattenuation consistent with chronic small vessel ischemic disease. V entricles are normal and symmetric. No mass/mass effect. Mild mucosal thickening the bilateral maxill puneet and ethmoid sinuses. The orbits and mastoid air cells are normal. Intracranial calcified cerebral atherosclerosis is noted. Chronic bone islands at the left mandibular condyle. IMPRESSION: 1. No acute intracranial process. 2. Likely age-related mild scattered white matter hypoattenuation consistent chronic small vessel isc hemic disease. Reviewed, dictated and finalized at location A. IMPRESSION: 1. No acute intracranial process. 2. Likely age-related mild scattered white matter hypoattenuation consistent ch ronic small vessel ischemic disease.
--- NOTE | 2020-03-29 11:02 | ECG_ITS ---
Measurements Intervals [place] Rate: 83 P: 83 [place]: 188 QRS: -42 QRSD: 94 T: 31 QT: 389 QTc: 459 Interpretive Statements SINUS RHYTHM LEFT AXIS DEVIATION POOR R WAVE PROGRESSION, CONSIDER ANTERIOR INFARCT BASELINE ARTIFACT- I, III, AVR, AVL, AVF, V2, V4-V6 ABNORMAL ECG Electronically Signed On 03-29-2020 12:24:35 CDT by Kenji Lassiter D.O.
[2020-03-29] MEDS: LORazepam INJ (*CRX) 2 MG/ML VIAL (11:10)
--- NOTE | 2020-03-29 11:12 | PC.NURSE ---
Pt report to ALINE Hsu, to continue care. Pt currently in CT.
[2020-03-29 11:16] LABS: Basophils Percent Auto 0.6 % (0.2-1.2); Eosinophils Absolute Auto 0.1 K/mm3 (0-0.3); Eosinophils Percent Auto 2.5 % (0-4.4); Hematocrit 43.1 % (37.0-47.0); Hemoglobin 13.8 g/dL (12.0-15.0); Immature Granulocyte Absolute 0.02 K/mm3 (0.00-0.031); Immature Granulocyte Percent A 0.4 % (0-0.5); Lymphocytes Absolute Auto 1.16 K/mm3 (0.9-3.2); Lymphocytes Percent Auto 22.2 % (18.3-44.2); Mean Corpuscular Hemoglobin 29.6 pg (26-34); Mean Corpuscular Volume 92.5 fl (80-100); Mean Platelet Volume 9.7 fl (7.4-10.4); Monocytes Absolute Auto 0.4 K/mm3 (0.1-0.6); Monocytes Percent Auto 8.2 % (2.6-8.5); Neutrophils Absolute Auto 3.5 K/mm3 (1.3-6.7); Neutrophils Percent Auto 66.1 % (45.5-73.1); Platelet Count Result 232 k/mm3 (150-375); Red Blood Count 4.66 M/mm3 (4.2-5.4); Red Cell Distribution Width 14.1 % (11.5-14.5); White Blood Count 5.2 K/mm3 (4.5-10.0)
[2020-03-29 11:27] LABS: Prothrombin Time 13.3 Seconds (11.1-14.7)
[2020-03-29 11:28] LABS: Partial Thromboplastin Time 30.9 SECONDS (22.3-36.8)
[2020-03-29 11:29] LABS: Alanine Aminotransferase 18 U/L (4-35); Albumin Level 4.8 g/dL (3.5-5.1); Alkaline Phosphatase 131 U/L (38-126); Anion Gap 12 mmol/L (8-16); Aspartate Amino Transferase 32 U/L (14-36); Bilirubin,Total 0.7 mg/dL (0.2-1.3); Blood Urea Nitrogen 23 mg/dL (7-17); Calcium 9.3 mg/dL (8.4-10.2); Carbon Dioxide 21 mmol/L (22-30); Chloride 107 mmol/L (98-107); Estimated CRCL calculation 39 ml/min; Estimated Glomerular Filt Rate 55; Glucose 208 mg/dL (65-105); Potassium 4.4 mmol/L (3.4-5.0); Sodium 140 mmol/L (137-145)
[2020-03-29] MEDS: SODIUM CHLORIDE 0.9% IV 1,000 ML 999 ML IV CONT (11:52)
[2020-03-29 13:36] LABS: Add Urine Microscopic? YES; Appearance Urine Clear (Clear); Bilirubin Urine Negative (Negative); Blood Urine Negative (Negative); Color Urine Colorless (Yellow); Glucose Urine UA Negative (Negative); Ketones Urine Negative (Negative); Leukocyte Esterase Ur Negative LEU/UL (Negative); Nitrate Urine Negative (Negative); Protein Urine 2+ mg/dL (Negative); Specific Grav Ur 1.009 (1.001-1.035); Squamous Epithelial Cell Urine Rare /hpf (Few); Urobilinogen Urine Negative mg/dL (<2.0); WBC Urine 0-3 /hpf
[2020-03-29 13:50] LABS: Troponin I 0.021 ng/mL (0.000-0.034)
--- NOTE | 2020-03-29 13:51 | ED.GENADULT ---
HPI - General Adult General Chief complaint: Seizure Stated complaint: SEIZURE Time Seen by Provider: 03/29/20 11:02 Source: RN notes reviewed History of Present Illness HPI narrative: Patient presents emergency department from home via EMS for possible seizure. Patient's gone out to get coffee and returned the patient was having tremors in her bed and was confused and had urinated in the bed. When EMS got there patient was initially combative and remains combative upon arrival to ED but mental status is slowly improving per EMS. Patient has no history of seizures per family. The patient was in normal health prior to this morning. Patient currently denies any pain but is unable to give any other history Related Data Home Medications Medication Instructions Recorded Confirmed buspirone 15 mg PO TID 07/16/19 11/17/19 furosemide 40 mg PO DAILY 07/16/19 11/17/19 hydroxyzine HCl 25 mg PO Q8H PRN 07/16/19 11/17/19 pregabalin 75 mg PO BID 07/16/19 11/17/19 levothyroxine 112 mcg PO DAILY 07/28/19 11/17/19 alum-mag hydroxide-simeth 15 ml PO QID PRN 09/14/19 11/17/19 [Almacone] metoclopramide HCl 5 mg PO TID 09/14/19 11/17/19 Allergies Allergy/AdvReac Type Severity Reaction Status Date / Time No Known Allergies Allergy Verified 03/29/20 11:21 Review of Systems Review of Systems: Narrative: Gen.: Denies fevers or chills ENT: Denies congestion Respiratory: Denies shortness of breath or cough CV: Denies chest pain GI: Denies abdominal pain nausea, emesis or diarrhea reports episode of incontinence Musculoskeletal: Denies back pain or muscle pain Neuro: See HPI Skin: Denies rash Except as documented, all other systems reviewed and negative [facility] Past Medical History Medical History Anxiety Bipolar 1 disorder Bowel obstruction Chronic venous stasis dermatitis of both lower extremities Depression Diabetes A1c 5.15 july 2019 DVT (deep venous thrombosis) Esophageal ulcer Foot drop GERD (gastroesophageal reflux disease) Heart attack HTN (hypertension) Hyperlipidemia Hypothyroid Osteoarthritis of right hip Peripheral neuropathy Pneumonia Post-menopausal Renal failure TIA (transient ischemic attack) Surgical History Surgical History (Updated 11/17/19 @ 16:09 by Vahid Lam MD) H/O tooth extraction History of section History of cholecystectomy History of gastric bypass History of right hip hemiarthroplasty July 2019 Family History Family History (Updated 08/17/19 @ 09:00 by Ashley Polanco [facility]) Mother Congestive heart failure Father Malignant neoplasm of prostate Cerebrovascular accident Diabetes mellitus Other Diabetes mellitus Daughter Thyroid disease Unknown Diabetes mellitus Heart disease Cancer Cerebrovascular accident Hypertension Social History Social History Social History: Patient lives with her . She does have 1 daughter who lives nearby with whom she interacts and 1 other daughter that she does not see often. She is a full code. She does not have a designated POA but does ask about her as well as eldest daughter, Jon Padilla be her contacts. She is a never smoker. No alcohol use. Smoking status: Never smoker Alcohol intake: never Substance use: never Gender identity (if verbalized by the patient): Female Spiritual care concerns: No Agree to blood products: Yes Exam Narrative: Exam Narrative: APPEARANCE: Posterior yelling out and continually try getting out of bed in ED. Trying to rip off blood pressure cuff EYES: PERRL HEENT: Normocephalic, atraumatic, OMM RESPIRATORY: No respiratory distress Clear to auscultation bilaterally with no rhonchi wheezing or rales. CARDIOVASCULAR: Regular rate and rhythm without murmurs rubs or gallops. ABDOMINAL: Soft, nontender, nondistended,
[2020-03-29] MEDS: hydrALAZINE HCL 20 MG/ML VIAL 10 MG IV PUSH ×2 (14:03→19:51)
[2020-03-29] MEDS: levETIRAcetam 500MG/NACL 100ML 500 MG/100 ML BAG 400 MG IVPB (14:04)
--- NOTE | 2020-03-29 21:08 | PM.IMHP ---
H&P: HPI History of Present Illness Date/Time: 03/29/20 21:08 Chief complaint: ams-seizure vs arrhythmia versus other Narrative: Sonya Johnson is a 69 year old female Came to the emergency room today via EMS for possible seizures. Patient is telling telling me that she has always incontinent of urine. I tried to communicate with the patient but she was crying and was very anxious she has a very poor historian. She keeps asking the same questions over again. She has a signs of dementia. She is talking about her daughter being little but at her age I do not think that she has a small child. Patient has no history of seizures and is very anxious. She has been very combative and restless. Her went out for Coffee and when he returned the patient was having tremors and was very confused. the patient was incontinent of urine but she explained to me she is always incontinent. She is accessing for her hydroxyzine now. She has been very irritated with the staff. Chest x-ray was read as no acute cardiopulmonary disease. Cardiomegaly. Head CT was read as no acute intracranial process likely age related mild scattered white matter hypoattenuation consistent chronic small vessel ischemic disease. Patient is having some mild a expressive aphasia where she is doing some word searching. She is getting aggravated because she is not able to find aware that she wants. We are not understanding her. Neurologist was called. Date of service 03/29/2020 urine was negative. Review of Systems Review of Systems: All systems reviewed & are unremarkable except as noted in HPI and below Constitutional: Constitutional: Reports as per HPI and Reports no additional constitutional complaints Eyes: Eyes: Reports as per HPI and Reports no additional eye complaints ENT: Reports system reviewed and no additional complaints, except as documented and Reports Normal hearing present Cardiovascular: Cardiovascular: Reports no additional cardiovascular complaints Respiratory: Respiratory: Reports no additional respiratory complaints and Reports no additional respiratory complaints Gastrointestinal: Gastrointestinal: Reports as per HPI and Reports no additional gastrointestinal complaints Musculoskeletal: Musculoskeletal: Reports no additional musculoskeletal complaints Integumentary/Breasts: Skin/Breast: Reports system reviewed and no additional complaints, except as docu and Reports as per HPI Neurologic: Reports system reviewed and no additional complaints, except as documented, Reports as per HPI and Reports Normal hearing present Psychiatric: Psychiatric: Reports no additional psychiatric complaints and Reports as per HPI Endocrine: Endocrine: Reports no additional endocrine complaints Hematologic/Lymphatic: Hematologic/Lymphatic: Reports no additional hematologic/lymphatic complaints Allergic/Immunologic: Allergic/Immunologic: Reports no additional allergic/immunologic complaints [facility] Past Medical History Medical History Anxiety Bipolar 1 disorder Bowel obstruction Chronic venous stasis dermatitis of both lower extremities Depression Diabetes A1c 5.15 july 2019 DVT (deep venous thrombosis) Esophageal ulcer Foot drop GERD (gastroesophageal reflux disease) Heart attack HTN (hypertension) Hyperlipidemia Hypothyroid Osteoarthritis of right hip Peripheral neuropathy Pneumonia Post-menopausal Renal failure TIA (transient ischemic attack) Surgical History Surgical History H/O tooth extraction History of section History of cholecystectomy History of gastric bypass History of right hip hemiarthroplasty July 2019 Family History Family History Mother Congestive heart failure Father Malignant neoplasm of prostate Cerebrovascular accident Diabe
[2020-03-29 21:10] LABS: Troponin I 0.068 ng/mL (0.000-0.034)
--- NOTE | 2020-03-29 21:11 | PC.NURSE ---
Phone call from lab reporting critical troponin levels on patient. Information given to Deloris Payne NP. face to face. No new orders given at this time.
--- NOTE | 2020-03-29 21:22 | ECG_ITS ---
Measurements Intervals [place] Rate: 93 P: -19 [place]: 124 QRS: -46 QRSD: 94 T: 27 QT: 376 QTc: 469 Interpretive Statements SINUS RHYTHM WITH SINUS ARRHYTHMIA ATRIAL PREMATURE COMPLEX LEFT ANTERIOR FASCICULAR BLOCK BASELINE ARTIFACT- AVR, AVL, AVF, V1-V6 ABNORMAL ECG Electronically Signed On 03-30-2020 7:32:03 CDT by Kenji Lassiter D.O.
[2020-03-29] MEDS: LORazepam INJ (*CRX) 2 MG/ML VIAL 0.5 MG IV PUSH (22:19)
[2020-03-29] MEDS: busPIRone HCL 5 MG TABLET 15 MG PO (22:29)
[2020-03-29] MEDS: SIMVASTATIN 20 MG TABLET PO (22:29)
--- NOTE | 2020-03-29 22:39 | PC.NURSE ---
03/29/20 2239: patient transferred from [address] [place] [address] surg. patient oriented to room, call light and belongings within reach.
--- NOTE | 2020-03-29 22:40 | PC.NURSE ---
Pt transfered to IMU via bed at this time. Belongings, chart, medications all given to nurse in IMU.
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
[2020-03-29] MEDS: HALOPERIDOL LACTATE 5 MG/ML VIAL IM (23:45)
[2020-03-30] VITALS (14 sets, daily range): BP systolic 110–215; BP diastolic 64–112; PULSE 67–101; RESP 12–20; TEMP 35.7–36.6; O2SAT 90–99
--- NOTE | 2020-03-30 | ECHO_ITS ---
Patient Info Name: Sonya Johnson Age: 69 years : 1950 Gender: Female Ht: 60 in Wt: 136 lbs BSA: 1.63 m2 HR: 88 bpm BP: 118 / 83 mmHg Heart Rhythm: Sinus Rhythm Technical Quality: Good Exam Date: 03/30/2020 11:25 AM Exam Location: [facility] Pulmonary Exam Room: [facility] Patient Status: Inpatient Admit Date: 03/29/2020 Staff Ordering Physician: Vanessa Bal MD Drop Hammer Set Up Operator: Ирина Black RDCS Attending Provider: Seema Gordon MD Referring Physician: Mally HOWELL; Exam Type: CA echo doppler color flow Study Info Indications - CHEST PAIN Complete two-dimensional, color flow and Doppler transthoracic echocardiogram is performed. Summary 1. Complete two-dimensional, color flow and Doppler transthoracic echocardiogram is performed. 2. Normal left ventricular systolic function, no focal wall motion abnormalities, estimated ejection fraction 65-70%. There is moderate concentric hypertrophy with asymmetric septal hypertrophy (measures 1.8 cm) suggestive of a hypertrophic cardiomyopathy. There is no outflow tract gradient. Diastolic dysfunction grade 3 is present. 3. Left atrial chamber dimension is mildly enlarged. 4. Right atrial chamber dimension is mildly enlarged. 5. Mild pulmonary hypertension, estimated pulmonary arterial systolic pressure is 46 mmHg. 6. No significant valve disease. 7. Normal sinus rhythm. Left Ventricle Left ventricular chamber dimension is normal. Left ventricular systolic function is normal, estimated at 65-70%. There is moderate asymmetric septal increased left ventricular wall thickness. Left ventricular septal wall motion is normal. The left ventricular diastolic function is grade III diastolic dysfunction. Right Ventricle Right ventricular chamber dimension is normal. Right ventricular systolic function is normal. Left Atria Left atrial chamber dimension is mildly enlarged. Right Atria Right atrial chamber dimension is mildly enlarged. Aortic Valve The aortic valve is trileaflet. There is no aortic valve sclerosis. There is no aortic valve stenosis. There is no aortic valve regurgitation. Pulmonic Valve The pulmonic valve is normal. There is no pulmonic valve stenosis. There is trace pulmonic regurgitation. Mitral Valve The mitral valve has calcified annulus. There is no mitral valve stenosis. There is no mitral valve regurgitation. Tricuspid Valve The tricuspid valve leaflets are normal. There is no significant tricuspid valve stenosis. There is trace tricuspid valve regurgitation. Mild pulmonary hypertension, estimated pulmonary arterial systolic pressure is 46 mmHg. Pericardium/Pleural The pericardium appears normal. There is no pericardial effusion. Inferior Vena Cava Normal inferior vena cava with >50% collapse upon inspiration consistent with Empty right atrial pressure, 10 mmHg. Aorta The aortic root size at the sinus of Valsalva is normal. The prox ascending aorta size is normal. Left Ventricular Outflow Tract Name Value Normal LVOT 2D LVOT Diameter 2.0 cm LVOT Doppler LVOT Peak Gradient
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
[2020-03-30] MEDS: levETIRAcetam 500MG/NACL 100ML 500 MG/100 ML BAG 400 MG IVPB ×2 (01:45→15:10)
[2020-03-30 02:03] LABS: Troponin I 0.061 ng/mL (0.000-0.034)
[2020-03-30] MEDS: LORazepam INJ (*CRX) 2 MG/ML VIAL 1 MG IV PUSH (03:01)
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
--- NOTE | 2020-03-30 03:53 | PC.NURSE ---
03/30/20:0353: patient is constantly removing her telemetry. dr hinson is aware and gave an order to leave off for now.
[2020-03-30 04:40] LABS: Potassium 3.6 mmol/L (3.4-5.0)
[2020-03-30 04:45] LABS: Anion Gap 7 mmol/L (8-16); Blood Urea Nitrogen 19 mg/dL (7-17); Carbon Dioxide 26 mmol/L (22-30); Chloride 107 mmol/L (98-107); Estimated CRCL calculation 39 ml/min; Estimated Glomerular Filt Rate 55; Glucose 130 mg/dL (65-105); Sodium 140 mmol/L (137-145)
[2020-03-30 07:55] LABS: Basophils Percent Auto 0.3 % (0.2-1.2); Eosinophils Absolute Auto 0.1 K/mm3 (0-0.3); Eosinophils Percent Auto 0.5 % (0-4.4); Hematocrit 40.7 % (37.0-47.0); Hemoglobin 13.2 g/dL (12.0-15.0); Immature Granulocyte Absolute 0.04 K/mm3 (0.00-0.031); Immature Granulocyte Percent A 0.4 % (0-0.5); Lymphocytes Absolute Auto 0.54 K/mm3 (0.9-3.2); Lymphocytes Percent Auto 5.7 % (18.3-44.2); Mean Corpuscular HGB Conc 32.4 g/dl (32-36); Mean Corpuscular Hemoglobin 29.6 pg (26-34); Mean Corpuscular Volume 91.3 fl (80-100); Mean Platelet Volume 9.6 fl (7.4-10.4); Monocytes Absolute Auto 0.9 K/mm3 (0.1-0.6); Neutrophils Absolute Auto 7.9 K/mm3 (1.3-6.7); Neutrophils Percent Auto 84.1 % (45.5-73.1); Platelet Count Result 177 k/mm3 (150-375); Red Blood Count 4.46 M/mm3 (4.2-5.4); Red Cell Distribution Width 13.8 % (11.5-14.5); White Blood Count 9.4 K/mm3 (4.5-10.0)
--- NOTE | 2020-03-30 09:24 | WPDCN ---
Assessment and Plan Assessment and plan (1) Chest pain: Code(s): R07.9 - Chest pain, unspecified Status: Acute Assessment and Plan: Possible chest pain yesterday. No acute changes on EKG. Very minimally elevated troponins, which could occur with a seizure. My index of suspicion for ACS is very low. Recommend: Echo Continue telemetry for another day. (2) Elevated troponin: Code(s): R79.89 - Other specified abnormal findings of blood chemistry Status: Acute Assessment and Plan: probably secondary to seizure activity. (3) Seizure: Code(s): R56.9 - Unspecified convulsions Status: Acute Assessment and Plan: Syncope versus seizure; More likely a seizure. Carotid ultrasound showed less than 50% stenosis bilaterally. MRI and Neurology consultation ordered. (4) Altered mental status: Code(s): R41.82 - Altered mental status, unspecified Status: Acute Assessment and Plan: Altered mental status, possible underlying dementia. HPI Data of Consult Date/Time: 03/30/20 09:24 Requesting Physician: Seema Gordon MD Primary Care Provider: Yanelis Engel MD Consult Narrative Narrative: Date of service: 03/30/2020 Sonya Johnson is a 69 year old female whom I was asked to see at the request of the hospitalist for my advice and opinion regarding her chest pain and elevated troponins ( 0.068) in consultation. The patient has no history of heart disease. Apparently she was in her normal state of health until yesterday when her left the room but on his return she was having tremors, confused and incontinent. EMS found her responsive to painful stimuli, then she became combative. Heart rate was 120 , respiratory rate 24, and glucose 200. In the ER her blood pressure is 160/106 and O2 sat 96% ; she was combative, yelling out, trying to get out of bed all of which improved after Ativan. She was brought to the emergency room and admitted for seizures versus arrhythmia, chest pain, possible dementia. When PANTOGRAPH I ENGRAVERKadeem Payne saw her yesterday she was grabbing her chest and gasping for air. Her troponins were mildly elevated, up to 0.068. The patient was agitated and confused through the night, not keeping her monitor on etc. I have seen the patient 3 times today, and every time she is very sleepy and I am unable to obtain any history from her. She has received several doses of Ativan for agitation. (twice) and daughter are not available by phone. The patient carries a history of diabetes, DVT on Eliquis, HTN, TIA, depression and bipolar disorder, fall with hip fracture, multiple GI evaluations for esophageal ulcers and anemia, chronic venous stasis, morbid obesity in the past and others. Old [place] is listed in EMR but I can't find any documentation. Review of Systems Review of Systems: ROS unobtainable: Yes unobtainable due to mental status (Somnolent) and other (ROS obtained fr the RN and EMR) Constitutional: Constitutional: Reports no additional constitutional complaints Eyes: Eyes: Reports no additional eye complaints Cardiovascular: Cardiovascular: Reports chest pain Respiratory: Respiratory: Reports no additional respiratory complaints Gastrointestinal: Gastrointestinal: Reports no additional gastrointestinal complaints Musculoskeletal: Musculoskeletal: Reports no additional musculoskeletal complaints Integumentary/Breasts: Skin/Breast: Reports system reviewed and no additional complaints, except as docu Neurologic: Reports confusion Psychiatric: Psychiatric: Reports behavioral changes [facility] Past Medical History Medical History Anxiety Bipolar 1 disorder Bowel obstruction Chronic venous stasis dermatitis of both lower extrem
[2020-03-30 09:26] LABS: Glucose Point of Care 82 (65-105)
[2020-03-30 10:12] LABS: Free T4 Free Thyroxine Reflex 0.96 ng/dL (0.78-2.19)
--- NOTE | 2020-03-30 10:33 | WPDNEURCNPN ---
Assessment and Plan Additional Plan considering the underlying dementia complete evaluation will be carried out including the MRI of the brain and EEG and routine blood studies Consult date: 03/30/20 Time Seen: 10:15 HPI: Sonya Johnson is a 69 year old female admitted to the hospital through the emergency room where she was brought by the EMS for possible seizure at the time of initial evaluation by the physician she was extremely anxious and crying and was asking the same question again and again he was talking about her little child she also mentioned to the initial physician that she has always incontinent and she was very irritated with the staff her initial CT scan in the emergency room revealed no acute his pace of buying lesion some white matter hypo attenuation consistent with a chronic vessel disease he does have ongoing history of bipolar 1 disorder in addition to the depression and multiple medical problem including diabetes mellitus she is receiving bupropion 300 mg daily along with BuSpar 15 mg 3 times a day hydroxyzine 25 mg q.8 hours p.r.n. she is also on apixaban and evaluation up until now has documented no significant abnormalities on the chest x-ray and also negative CT scan of the head for any bleed Review of Systems Review of Systems: All systems reviewed & are unremarkable except as noted in HPI and below PMFSH Past Medical History Medical History Anxiety Bipolar 1 disorder Bowel obstruction Chronic venous stasis dermatitis of both lower extremities Depression Diabetes A1c 5.15 july 2019 DVT (deep venous thrombosis) Esophageal ulcer Foot drop GERD (gastroesophageal reflux disease) Heart attack HTN (hypertension) Hyperlipidemia Hypothyroid Osteoarthritis of right hip Peripheral neuropathy Pneumonia Post-menopausal Renal failure TIA (transient ischemic attack) Surgical History Surgical History H/O tooth extraction History of section History of cholecystectomy History of gastric bypass History of right hip hemiarthroplasty July 2019 Family History Family History Mother Congestive heart failure Father Malignant neoplasm of prostate Cerebrovascular accident Diabetes mellitus Other Diabetes mellitus Daughter Thyroid disease Unknown Diabetes mellitus Heart disease Cancer Cerebrovascular accident Hypertension Social History Social History Social History: Patient lives with her . She does have 1 daughter who lives nearby with whom she interacts and 1 other daughter that she does not see often. She is a full code. She does not have a designated POA but does ask about her as well as eldest daughter, Jon Padilla be her contacts. She is a never smoker. No alcohol use. Smoking status: Never smoker Alcohol intake: never Substance use: never Substance use type: does not use Gender identity (if verbalized by the patient): Female Spiritual care concerns: No Agree to blood products: Yes Meds Home Medications and Allergies Home Medications Medication Instructions Recorded Confirmed Type buspirone 15 mg PO TID 07/16/19 03/29/20 History furosemide 40 mg PO BID 07/16/19 03/29/20 History hydroxyzine HCl 25 mg PO Q8H PRN 07/16/19 03/29/20 History levothyroxine 112 mcg PO DAILY 07/28/19 03/29/20 History acetaminophen 1,000 mg PO Q6H PRN #30 tablet 08/09/19 03/29/20 Rx apixaban [Eliquis] 5 mg PO Q12HR #60 tablet 08/09/19 03/29/20 Rx ferrous sulfate 324 mg PO BIDWM #60 tablet 08/09/19 03/29/20 Rx alum-mag hydroxide-simeth 15 ml PO QID PRN 09/14/19 03/29/20 History [Almacone] bupropion HCl 300 mg PO QAM 03/29/20 03/29/20 History lisinopril 10 mg PO DAILY 03/29/20 03/29/20 History pantoprazole 40 mg PO CASSIDY
--- NOTE | 2020-03-30 10:50 | PCNEURO ---
EEG on hold due to patient condition. Patient is combative at this time. Nurse will let neurology dept know if condition changes.
[2020-03-30] MEDS: LORazepam INJ (*CRX) 2 MG/ML VIAL 0.5 MG IV PUSH (11:50)
[2020-03-30 12:15] LABS: Total Triiodothyronine (T3) 1.07 NG/ML (0.97-1.69)
--- NOTE | 2020-03-30 12:37 | PC.NURSE ---
Received call from Cj in MRI that patient was unable to lay still and cooperate for MRI
[2020-03-30 13:15] LABS: Glucose Point of Care 77 (65-105)
--- NOTE | 2020-03-30 13:47 | PM.IMPN ---
Progress Note: A&P Assessment and Plan (1) Chest pain: Code(s): R07.9 - Chest pain, unspecified Status: Acute Assessment and Plan: Cardiology consulted mildly elevate trop unlikley to be ACS (2) Hx of deep venous thrombosis: Code(s): Z86.718 - Personal history of other venous thrombosis and embolism Status: Acute Assessment and Plan: Continue Eliquis. (3) Anemia: Qualifiers: Anemia type: unspecified type Qualified Code(s): D64.9 - Anemia, unspecified Code(s): D64.9 - Anemia, unspecified Status: Acute Assessment and Plan: Hb is stable presently. (4) Diabetes: Qualifiers: Diabetes mellitus type: type 2 Diabetes mellitus residential insulin use: without regional intermodal truck driver use Diabetes mellitus complication status: without complication Qualified Code(s): E11.9 - Type 2 diabetes mellitus without complications Code(s): E11.9 - Type 2 diabetes mellitus without complications Status: Chronic Assessment and Plan: Accu-Cheks a.c. (5) GERD (gastroesophageal reflux disease): Qualifiers: Esophagitis presence: esophagitis presence not specified Qualified Code(s): K21.9 - Gastro-esophageal reflux disease without esophagitis Code(s): K21.9 - Gastro-esophageal reflux disease without esophagitis Status: Chronic (6) Hyperlipidemia: Qualifiers: Hyperlipidemia type: unspecified Qualified Code(s): E78.5 - Hyperlipidemia, unspecified Code(s): E78.5 - Hyperlipidemia, unspecified Status: Chronic (7) HTN (hypertension): Qualifiers: Hypertension type: unspecified Qualified Code(s): I10 - Essential (primary) hypertension Code(s): I10 - Essential (primary) hypertension Status: Chronic Assessment and Plan: Continue to monitor Bp. BP is high today. (8) Major depressive disorder: Qualifiers: Major depression recurrence: unspecified whether recurrent Active/Remission status: remission status unspecified Qualified Code(s): F32.9 - Major depressive disorder, single episode, unspecified Code(s): F32.9 - Major depressive disorder, single episode, unspecified Status: Acute Assessment and Plan: Continue with her Wellbutrin. Hydroxyzine for her severe anxiety. Ativan only if very agitated appears calm today. (9) Seizure: Code(s): R56.9 - Unspecified convulsions Status: Acute Assessment and Plan: Neurology consulted Pt has underlying dementia. Pt will need further work up MRI and EEG. POssible seizure activity with incontinence of urine, continue to monitor. Seizure precautions. (10) Hypothyroid: Qualifiers: Hypothyroidism type: unspecified Qualified Code(s): E03.9 - Hypothyroidism, unspecified Code(s): E03.9 - Hypothyroidism, unspecified Status: Chronic Assessment and Plan: Continue levothyroxine. TSH NL Subjective Date/time seen: 03/30/20 13:47 Interval history: Elizabeth is a 69 year old female Came to the emergency room today via EMS for possible seizures. Pt had negative ct head awaiting MRI and carotids and EEG. pt seen by neurology. Pt has history of bipolar disorder and dementia. History is difficult to elicit. Review of Systems Review of Systems: ROS unobtainable: Yes unobtainable due to medical condition and other (some aphasia ) Exam Narrative: Exam Narrative: elderly frail lady thin appearing chronically ill appearing Resp: Effort & Inspection: normal respiratory effort Auscultation: clear to auscultation bilaterally Percussion: percussion normal Cardio: Palpation: normal PMI Rate: regular rate Rhythm: regular rhythm Heart sounds: S1 normal heart sound present and S2 normal heart sound present Peripheral pulses: Peripheral pulses 2+ throughout Extrem: General: normal to inspection Right upper extremity: normal to inspection Left upper extremi
--- NOTE | 2020-03-30 15:12 | PC.NURSE ---
Patient sees Anna GILLESPIE as primary care
--- NOTE | 2020-03-30 15:20 | PCOTNOTE ---
Attempted OT evaluation, but unable to keep patient aroused to participate. Will attempt again tomorrow.
--- NOTE | 2020-03-30 15:31 | PCPTNOTE ---
Attempted PT evaluation this PM. Pt too lethargic to participate. Will try again tomorrow.
[2020-03-30] MEDS: hydrALAZINE 5 MG TABLET PO ×2 (17:15→21:37)
[2020-03-30] MEDS: FERROUS SULFATE 324 MG TABLET PO (17:15)
[2020-03-30] MEDS: busPIRone HCL 5 MG TABLET 15 MG PO (17:15)
[2020-03-30] MEDS: FUROSEMIDE 40 MG TABLET PO (17:15)
[2020-03-30] MEDS: APIXABAN 5 MG TABLET PO (21:37)
[2020-03-30] MEDS: SIMVASTATIN 20 MG TABLET PO (21:37)
--- NOTE | 2020-03-30 22:15 | PC.NURSE ---
This patient, Sonya Johnson, was transferred to [facility] 03/30/20 at 2200. Personal belongings sent with patient. Belongings list checked and signed with receiving [ ]. Report given to DHRUV MIRELES. Appropriate documentation sent with patient.
--- NOTE | 2020-03-30 22:54 | PC.NURSE ---
This patient, Sonya Johnson, was received from [ [facility]] on 03/30/20 at 2215. Personal belongings list checked and signed. Patient/family oriented to unit policies and routines
[2020-03-31] VITALS (7 sets, daily range): BP systolic 124–157; BP diastolic 57–96; PULSE 56–94; RESP 16–20; TEMP 36.2–37.2; O2SAT 94–98
[2020-03-31] MEDS: LORazepam INJ (*CRX) 2 MG/ML VIAL 0.5 MG IV PUSH ×2 (00:55→11:49)
[2020-03-31] MEDS: levETIRAcetam 500MG/NACL 100ML 500 MG/100 ML BAG 400 MG IVPB ×2 (02:40→14:30)
[2020-03-31] MEDS: LEVOTHYROXINE SODIUM 112 MCG TABLET PO (06:34)
[2020-03-31 06:48] LABS: Hematocrit 36.4 % (37.0-47.0); Hemoglobin 12.2 g/dL (12.0-15.0); Mean Corpuscular HGB Conc 33.5 g/dl (32-36); Mean Corpuscular Hemoglobin 30.9 pg (26-34); Mean Corpuscular Volume 92.2 fl (80-100); Mean Platelet Volume 9.5 fl (7.4-10.4); Platelet Count Result 198 k/mm3 (150-375); Red Blood Count 3.95 M/mm3 (4.2-5.4); Red Cell Distribution Width 13.6 % (11.5-14.5); White Blood Count 7.6 K/mm3 (4.5-10.0)
[2020-03-31 07:07] LABS: Anion Gap 6 mmol/L (8-16); Blood Urea Nitrogen 21 mg/dL (7-17); Carbon Dioxide 26 mmol/L (22-30); Chloride 104 mmol/L (98-107); Estimated CRCL calculation 39 ml/min; Estimated Glomerular Filt Rate 55; Glucose 102 mg/dL (65-105); Potassium 3.3 mmol/L (3.4-5.0); Sodium 136 mmol/L (137-145)
[2020-03-31] MEDS: POTASSIUM CHLORIDE 20 MEQ TABLET 40 MEQ PO (08:27)
[2020-03-31] MEDS: FERROUS SULFATE 324 MG TABLET PO ×2 (08:28→16:17)
[2020-03-31] MEDS: APIXABAN 5 MG TABLET PO ×2 (08:28→20:47)
[2020-03-31] MEDS: busPIRone HCL 5 MG TABLET 15 MG PO ×3 (08:28→16:16)
[2020-03-31] MEDS: buPROPion HCL XL (24 HR) 150 MG TABCR 300 MG PO (08:30)
[2020-03-31] MEDS: PANTOPRAZOLE 40 MG TABLET PO (08:30)
[2020-03-31] MEDS: FUROSEMIDE 40 MG TABLET PO ×2 (08:30→16:18)
[2020-03-31] MEDS: lisinopriL 10 MG TABLET PO (08:31)
[2020-03-31] MEDS: hydrALAZINE 5 MG TABLET PO ×4 (08:31→20:47)
[2020-03-31 08:49] LABS: Glucose Point of Care 100 (65-105)
[2020-03-31 09:11] LABS: Iron 42 ug/dL (37-170)
--- NOTE | 2020-03-31 09:17 | PCOTNOTE ---
On 03/31/20, the student, Luisana Aly, provided care and completed [facility] on this patient. I have reviewed the student's documentation and agree with the findings.
[2020-03-31 09:21] LABS: Percent Iron Saturation 15 % (20-50)
--- NOTE | 2020-03-31 10:12 | PM.PNCARD ---
Progress Note: A&P Assessment and Plan (1) Chest pain: Code(s): R07.9 - Chest pain, unspecified Status: Acute Assessment and Plan: Possible chest pain . Not answering any questions this morning. Per nursing staff no complaints of chest discomfort. No acute changes on EKG. Very minimally elevated troponins, which could occur with a seizure. Index of suspicion for ACS is very low. Per vital signs no bradycardia or tachycardia noted. Echocardiogram 03/30/2020: Normal left ventricular systolic function, no focal wall motion abnormalities, estimated ejection fraction 65-70%. There is moderate concentric hypertrophy with asymmetric septal hypertrophy (measures 1.8 cm) suggestive of a hypertrophic cardiomyopathy. There is no outflow tract gradient. Diastolic dysfunction grade 3 is present. Left atrial chamber dimension is mildly enlarged. Right atrial chamber dimension is mildly enlarged. Mild pulmonary hypertension, estimated pulmonary arterial systolic pressure is 46 mmHg. No significant valve disease. (2) Elevated troponin: Code(s): R79.89 - Other specified abnormal findings of blood chemistry Status: Acute Assessment and Plan: probably secondary to seizure activity. (3) Seizure: Code(s): R56.9 - Unspecified convulsions Status: Acute Assessment and Plan: Syncope versus seizure; More likely a seizure. Carotid ultrasound showed less than 50% stenosis bilaterally. MRIcwas attempt yesterday but she was not able to cooperate once in the scanner. Neurology consultation done. Defer to Hospitalistfor further Evaluation and treatment. (4) Altered mental status: Code(s): R41.82 - Altered mental status, unspecified Status: Acute Assessment and Plan: Altered mental status, possible underlying dementia. Additional Plan No further cardiac recommendations. Cardiology will sign off. Please do not hesitate to call if we can be of further assistance. Plan discussed with Dr. Man [id number] 03/31/2000 Subjective Date/time seen: 03/31/20 10:12 Interval history: Follow-up for: Possible chest pain, elevated troponin, seizure, altered mental status Date of service: 03/31/2020 Subjective: Difficult to arouse. Did not answer any questions. Will not open eyes. Followed simple commands. Review of Systems Review of Systems: ROS unobtainable: Yes unobtainable due to mental status (Somnolent) Exam Narrative: Exam Narrative: Chronically ill-appearing female appearing older than her stated age. Somnolent Const: General: comfortable and no acute distress Orientation/consciousness: lethargic ( unable to assess further due to somnolence) HENMT: General nose exam: Normal nares present Mouth: Yes moist mucous membranes Teeth and gingiva: edentulous Eyes: General: appearance normal, both eyes and all related structures Neck: Neck: supple and no JVD Resp: Effort & Inspection: normal respiratory effort Auscultation: clear to auscultation bilaterally Cardio: Rate: regular rate Rhythm: regular rhythm Heart sounds: no murmurs Other: Decreased but intact pedal pulses GI: Inspection: non-distended GI Palp: Yes Soft to palpation Auscultation: normal bowel sounds Skin: General skin exam: normal color and no rashes or lesions noted Neuro: General: confusion Cognition (Neuro): abnormal cognition Other: Very sleepy, hard to arouse. Did follow simple commands. Moves all extremities. Respirations even and unlabored. Extrem: General: no edema and no pedal edema Psych: Mental Status: mental status grossly abnormal Other: Somnolent Objective Data Vital Signs Vital Signs: Vital Signs - 24 hr 03/30/20 12:00 03/30/20 13:20 03/30/20 13:27 Temperature 36.1 C L Pulse Rate 87 69 Respiratory Rate
[2020-03-31 10:16] LABS: Transferrin 200 mg/dL (206-381)
--- NOTE | 2020-03-31 11:07 | PM.IMPN ---
Progress Note: A&P Assessment and Plan (1) Acute CVA (cerebrovascular accident): Code(s): I63.9 - Cerebral infarction, unspecified Status: Acute Assessment and Plan: Patient was found to have acute right frontal lobe white matter infarct on her MRI which could be contributing to her mental status change. She will be started on aspirin 81 mg Carotid Doppler showing less than 50% stenosis bilaterally. Echocardiogram showed normal EF, moderate concentric hypertrophy with asymmetric septal hypertrophy without any outflow tract gradient and grade 3 diastolic dysfunction. Nothing abnormal contributing to her stroke at this time. She was initially on tele when she came to the hospital but this was discontinued yesterday after there were no signs of her having any bradycardic, tachycardic episodes or arrhythmias. Cardiology feels comfortable with her staying off tele at this time. 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 Will continue her statin at this time but will check fasting lipid panel in the morning to see if it needs to be adjusted. Continue monitoring the patient's symptoms. Continue PT and OT. Plans for possible discharge to SNF. * I informed the patient's daughter about the current workup and findings. She states since 2005 her mother had gastric bypass surgery. In 2007 she was home alone, very weak and fatigued and fell asleep while sitting on the toilet for hours and had a hypoxic episode and was intubated at [facility]. Since then she has had memory issues which has become more severe over the last several years. She states since July her memory is become worse as well as increased agitation. The patient takes care of her own medications and the family is unsure if she is taking everything as prescribed. She will not allow anyone else to touch her medications. Patient refuses see a psychiatrist in the past and is unsure if they can convince her to see someone now. The patient had broken her hip about 6 months ago and she was sent to an SNF for she was released early due to her agitation and since then she has not been able to be very mobile since she never completed her therapy postop. (2) Seizure: Code(s): R56.9 - Unspecified convulsions Status: Acute Assessment and Plan: Family states it looks like she had a seizure prior to arrival which is why she was brought into the ER. Patient was started on IV Keppra 500 mg q.12 Patient had an EEG performed today which showed no acute abnormalities. MRI of her brain did show a probable punctate acute infarct to the right frontal lobe white matter. And chronic age-related findings. I discussed this with Dr. Roche the neurologist who recommended starting patient on 81 mg aspirin daily, switching Keppra to 500 mg p.o. q.12 and he will decide more tomorrow she is to continue on this anti seizure medication. He also states that her medication Wellbutrin could also cause seizures and she has not made any adjustments at this time. Continue monitoring the patient and seizure precautions are initiated. (3) Chest pain: Code(s): R07.9 - Chest pain, unspecified Status: Acute Assessment and Plan: Patient states she did have a little bit of chest pain yesterday, but denies any chest pain today. She denies any shortness of breath at rest or with exertion or palpitations. Cardiology was consulted who evaluated her and had been monitoring on telemetry without any acute arrhythmias or EKG changes. She did have very minimally elevated troponins which cardiology believes could be associated with her seizure. Otherwise cardiology states they have a low suspicion of ACS. Echocardiogram showed 03/30/2020 showing normal LV systolic function, no focal wall motion abnormalities, normal EF. There
[2020-03-31 11:12] LABS: Folic Acid > 20.0 ng/mL (2.76->20)
[2020-03-31 11:34] LABS: Magnesium 1.7 mg/dL (1.6-2.3)
--- NOTE | 2020-03-31 12:26 | WPDNEUROLOGY ---
Neurology EEG Report General Information Date of Study: 03/31/20 TEST EEG DIAGNOSIS Seizure CONDITION OF RECORDING awake and drowsy EEG NUMBER [id number] CLINICAL HISTORY no particular history available except the history of seizure EEG DESCRIPTION basic resting occipital frequency consists of low to medium voltage 8 to 10 hertz per 2nd alpha admixed with low-voltage 15 to 21 hertz per 2nd beta. During drowsiness low-voltage beta activity seen diffusely admixed vexing and waning posterior alpha rhythm. Non paroxysmal. Nonfocal. Nonlateralizing. IMPRESSION Normal record
[2020-03-31 12:52] LABS: Glucose Point of Care 82 (65-105)
--- NOTE | 2020-03-31 13:14 | WPDNEUROPN ---
Progress Note: A&P Assessment and Plan (1) Elevated troponin: Code(s): R79.89 - Other specified abnormal findings of blood chemistry Status: Acute (2) Altered mental status: Code(s): R41.82 - Altered mental status, unspecified Status: Acute (3) Chest pain: Code(s): R07.9 - Chest pain, unspecified Status: Acute (4) Seizure: Code(s): R56.9 - Unspecified convulsions Status: Acute (5) History of right hip hemiarthroplasty: Code(s): Z96.641 - Presence of right artificial hip joint Status: Acute (6) Iron deficiency anemia: Qualifiers: Iron deficiency anemia type: chronic blood loss Qualified Code(s): D50.0 - Iron deficiency anemia secondary to blood loss (chronic) Code(s): D50.9 - Iron deficiency anemia, unspecified Status: Acute (7) Osteoarthritis of right hip: Code(s): M16.11 - Unilateral primary osteoarthritis, right hip Status: Acute (8) Chronic venous stasis dermatitis of both lower extremities: Code(s): I87.2 - Venous insufficiency (chronic) (peripheral) Status: Acute (9) Hx of deep venous thrombosis: Code(s): Z86.718 - Personal history of other venous thrombosis and embolism Status: Acute (10) Esophageal ulcer: Qualifiers: Esophageal ulcer bleeding: without bleeding Qualified Code(s): K22.10 - Ulcer of esophagus without bleeding Code(s): K22.10 - Ulcer of esophagus without bleeding Status: Acute (11) Major depressive disorder: Qualifiers: Major depression recurrence: unspecified whether recurrent Active/Remission status: remission status unspecified Qualified Code(s): F32.9 - Major depressive disorder, single episode, unspecified Code(s): F32.9 - Major depressive disorder, single episode, unspecified Status: Acute Additional Plan we will reassess the situation based on the MRI when she is more awake and probably follow her up tomorrow Review of Systems Review of Systems: All systems reviewed & are unremarkable except as noted in HPI and below Exam Const: General: comfortable and no acute distress HENMT: General nose exam: Normal nares present Mouth: Yes moist mucous membranes Eyes: General: appearance normal, both eyes and all related structures Neck: Neck: supple and no JVD Resp: Effort & Inspection: normal respiratory effort Auscultation: clear to auscultation bilaterally Cardio: Rate: regular rate Rhythm: regular rhythm GI: Auscultation: normal bowel sounds Skin: General skin exam: normal color and no rashes or lesions noted Neuro: Other: patient is heavily sedated without any lateralizing focal motor deficit she is going for the MRI of the brain Extrem: General: normal to inspection Psych: Other: difficult to assess in a sedated patient Objective Data Vital Signs Vital Signs: Vital Signs - 24 hr 03/30/20 13:20 03/30/20 13:27 03/30/20 13:34 Temperature 36.1 C L Pulse Rate 69 97 Respiratory Rate Blood Pressure 215/88 H 155/112 H Pulse Oximetry 03/30/20 16:00 03/30/20 17:00 03/30/20 17:58 Temperature 36.3 C L Pulse Rate 87 80 75 Respiratory Rate 12 Blood Pressure 187/107 H Pulse Oximetry 93 03/30/20 21:00 03/31/20 06:00 Temperature 36.1 C L 36.3 C L Pulse Rate 78 86 Respiratory Rate 20 18 Blood Pressure 110/64 157/96 H Pulse Oximetry 99 95 Intake/Output Intake/Output: Intake & Output 03/28/20 03/29/20 03/30/20 03/31/20 23:59 23:59 23:59 23:59 Intake Total 1200 200 415 Output Total 800 Balance 400 200 415 Meds/Results Medications: Active Medications Generic Name Dose Route Start Last Admin Trade Name Freq PRN Reason Stop Dose Admin Apixaban 5 mg 03/30/20 09:00 03/31/20 08:28 Eliquis PO 5 mg Q12HR DELMAR Administration Bupropion HCl 300 mg 03/30/20 09:00 03/31/20 08:30 Wellbutrin Xl (24 Hr) PO 300 mg QAM DELMAR Administration
[2020-03-31 16:03] LABS: Cholesterol 177 mg/dL (0-200); HDL Direct 46 mg/dL; Triglycerides 105 mg/dL (<150)
[2020-03-31 16:14] LABS: LDL Cholesterol Direct 97 mg/dL
[2020-03-31] MEDS: CYANOCOBALAMIN INJ 1,000 MCG/ML VIAL 1000 MCG IM (16:15)
[2020-03-31 18:00] LABS: Glucose Point of Care 77 (65-105)
[2020-03-31 19:58] LABS: Glucose Point of Care 121 (65-105)
[2020-03-31] MEDS: hydrOXYzine HCL 25 MG TABLET PO (20:47)
[2020-03-31] MEDS: SIMVASTATIN 20 MG TABLET PO (20:47)
[2020-04-01] MEDS: LORazepam INJ (*CRX) 2 MG/ML VIAL 0.5 MG IV PUSH (00:05)
[2020-04-01] MEDS: levETIRAcetam 500MG/NACL 100ML 500 MG/100 ML BAG 400 MG IVPB (02:53)
[2020-04-01 06:00] VITALS: BP 126/73; PULSE 83; RESP 18; TEMP 37; O2SAT 95
[2020-04-01] MEDS: LEVOTHYROXINE SODIUM 112 MCG TABLET PO (06:12)
[2020-04-01 06:22] LABS: Hematocrit 38.5 % (37.0-47.0); Hemoglobin 12.3 g/dL (12.0-15.0); Mean Corpuscular HGB Conc 31.9 g/dl (32-36); Mean Corpuscular Hemoglobin 29.9 pg (26-34); Mean Corpuscular Volume 93.7 fl (80-100); Mean Platelet Volume 9.6 fl (7.4-10.4); Platelet Count Result 185 k/mm3 (150-375); Red Blood Count 4.11 M/mm3 (4.2-5.4)
[2020-04-01 06:42] LABS: Hemoglobin A1C 5.2 % (<5.7)
[2020-04-01 06:44] LABS: Anion Gap 5 mmol/L (8-16); Blood Urea Nitrogen 23 mg/dL (7-17); Carbon Dioxide 27 mmol/L (22-30); Chloride 107 mmol/L (98-107); Estimated CRCL calculation 30 ml/min; Estimated Glomerular Filt Rate 41; Glucose 109 mg/dL (65-105); Magnesium 1.5 mg/dL (1.6-2.3); Potassium 3.3 mmol/L (3.4-5.0); Sodium 139 mmol/L (137-145)
[2020-04-01 08:55] LABS: Glucose Point of Care 108 (65-105)
[2020-04-01] MEDS: POTASSIUM CHLORIDE 20 MEQ TABLET 40 MEQ PO (09:13)
[2020-04-01] MEDS: FERROUS SULFATE 324 MG TABLET PO ×2 (09:13→17:47)
[2020-04-01] MEDS: buPROPion HCL XL (24 HR) 150 MG TABCR 300 MG PO (09:14)
[2020-04-01] MEDS: busPIRone HCL 5 MG TABLET 15 MG PO ×3 (09:14→17:46)
[2020-04-01] MEDS: APIXABAN 5 MG TABLET PO ×2 (09:14→21:08)
[2020-04-01] MEDS: CYANOCOBALAMIN INJ 1,000 MCG/ML VIAL 1000 MCG IM (09:14)
[2020-04-01] MEDS: PANTOPRAZOLE 40 MG TABLET PO (09:15)
[2020-04-01] MEDS: hydrALAZINE 5 MG TABLET PO ×4 (09:15→21:08)
[2020-04-01] MEDS: lisinopriL 10 MG TABLET PO (09:15)
[2020-04-01] MEDS: MAGNESIUM SULFATE 3GM/D5W100ML 3 GM/100 ML BAG IVPB (09:26)
[2020-04-01] MEDS: levETIRAcetam 500 MG TABLET PO ×2 (09:26→21:08)
[2020-04-01] MEDS: ASPIRIN 81 MG ENTERIC TABLET PO (09:26)
[2020-04-01 13:30] LABS: Glucose Point of Care 157 (65-105)
[2020-04-01 13:52] LABS: SARS-CoV-2 RNA PCR Negative
[2020-04-01 14:00] VITALS: BP 130/80; PULSE 85; RESP 18; TEMP 36.8; O2SAT 96
--- NOTE | 2020-04-01 14:17 | PM.IMPN ---
Progress Note: A&P Assessment and Plan (1) Acute CVA (cerebrovascular accident): Code(s): I63.9 - Cerebral infarction, unspecified Status: Acute Assessment and Plan: Patient was found to have acute right frontal lobe white matter infarct on her MRI which could be contributing to her mental status change. She will be started on aspirin 81 mg Carotid Doppler showing less than 50% stenosis bilaterally. Echocardiogram showed normal EF, moderate concentric hypertrophy with asymmetric septal hypertrophy without any outflow tract gradient and grade 3 diastolic dysfunction. Nothing abnormal contributing to her stroke at this time. She was initially on tele when she came to the hospital but this was discontinued yesterday after there were no signs of her having any bradycardic, tachycardic episodes or arrhythmias. Cardiology feels comfortable with her staying off tele at this time. 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 Lipid panel was completed showing total cholesterol, triglycerides, HDL was controlled, but LDL was 97. And she has had a stroke LDL should be less than 70. I will increase her simvastatin to 40 mg. Have her check fasting lipid panel in 3 months with PCP. Continue monitoring the patient's symptoms. Continue PT and OT. Plans for possible discharge to SNF. * I informed the patient's daughter about the current workup and findings. She states since 2005 her mother had gastric bypass surgery. In 2007 she was home alone, very weak and fatigued and fell asleep while sitting on the toilet for hours and had a hypoxic episode and was intubated at [place]. Since then she has had memory issues which has become more severe over the last several years. She states since July her memory is become worse as well as increased agitation. The patient takes care of her own medications and the family is unsure if she is taking everything as prescribed. She will not allow anyone else to touch her medications. Patient refuses see a psychiatrist in the past and is unsure if they can convince her to see someone now. The patient had broken her hip about 6 months ago and she was sent to an SNF for she was released early due to her agitation and since then she has not been able to be very mobile since she never completed her therapy postop. (2) Seizure: Code(s): R56.9 - Unspecified convulsions Status: Acute Assessment and Plan: Family states it looks like she had a seizure prior to arrival which is why she was brought into the ER. Patient was started on IV Keppra 500 mg q.12 Patient had an EEG performed today which showed no acute abnormalities. MRI of her brain did show a probable punctate acute infarct to the right frontal lobe white matter. And chronic age-related findings. I discussed this with Dr. Roche the neurologist who recommended starting patient on 81 mg aspirin daily, switching Keppra to 500 mg p.o. q.12 and he will decide more when he sees her today and he will either continue on anti seizure medication versus stop them. He also states that her medication Wellbutrin could also cause seizures and she has not made any adjustments at this time. Continue monitoring the patient and seizure precautions are initiated. (3) Chest pain: Code(s): R07.9 - Chest pain, unspecified Status: Acute Assessment and Plan: Patient states she did have a little bit of chest pain yesterday, but denies any chest pain today. She denies any shortness of breath at rest or with exertion or palpitations. Cardiology was consulted who evaluated her and had been monitoring on telemetry without any acute arrhythmias or EKG changes. She did have very minimally elevated troponins which cardiology believes could be associated with her seizure. Otherwise card
[2020-04-01 17:51] LABS: Glucose Point of Care 82 (65-105)
[2020-04-01] MEDS: DOCUSATE SODIUM 100 MG CAPSULE PO (21:08)
[2020-04-01] MEDS: SIMVASTATIN 20 MG TABLET PO (21:08)
[2020-04-01 21:58] VITALS: BP 134/73; PULSE 82; RESP 18; TEMP 36.9; O2SAT 97
[2020-04-01 22:16] LABS: Glucose Point of Care 107 (65-105)
[2020-04-02 05:59] VITALS: BP 134/60; PULSE 78; RESP 18; TEMP 36.5; O2SAT 95
[2020-04-02] MEDS: LEVOTHYROXINE SODIUM 112 MCG TABLET PO (06:26)
[2020-04-02 06:33] LABS: Anion Gap 6 mmol/L (8-16); Blood Urea Nitrogen 33 mg/dL (7-17); Calcium 7.9 mg/dL (8.4-10.2); Carbon Dioxide 24 mmol/L (22-30); Chloride 107 mmol/L (98-107); Estimated CRCL calculation 27 ml/min; Estimated Glomerular Filt Rate 35; Glucose 104 mg/dL (65-105); Magnesium 2.2 mg/dL (1.6-2.3); Potassium 3.9 mmol/L (3.4-5.0); Sodium 137 mmol/L (137-145)
[2020-04-02 08:30] LABS: Glucose Point of Care 81 (65-105)
[2020-04-02] MEDS: levETIRAcetam 500 MG TABLET PO (09:12)
[2020-04-02] MEDS: hydrALAZINE 5 MG TABLET PO ×4 (09:13→21:19)
[2020-04-02] MEDS: ASPIRIN 81 MG ENTERIC TABLET PO (09:13)
[2020-04-02] MEDS: CYANOCOBALAMIN INJ 1,000 MCG/ML VIAL 1000 MCG IM (09:13)
[2020-04-02] MEDS: lisinopriL 10 MG TABLET PO (09:13)
[2020-04-02] MEDS: busPIRone HCL 5 MG TABLET 15 MG PO ×3 (09:13→17:37)
[2020-04-02] MEDS: PANTOPRAZOLE 40 MG TABLET PO (09:13)
[2020-04-02] MEDS: FERROUS SULFATE 324 MG TABLET PO ×2 (09:13→17:37)
[2020-04-02] MEDS: buPROPion HCL XL (24 HR) 150 MG TABCR 300 MG PO (09:13)
[2020-04-02] MEDS: DOCUSATE SODIUM 100 MG CAPSULE PO ×2 (09:13→21:19)
[2020-04-02] MEDS: APIXABAN 5 MG TABLET PO ×2 (09:13→21:19)
[2020-04-02] MEDS: LACTATED RINGERS 500 ML 100 ML IV CONT (10:19)
--- NOTE | 2020-04-02 11:32 | PM.IMPN ---
Progress Note: A&P Assessment and Plan (1) Acute CVA (cerebrovascular accident): Code(s): I63.9 - Cerebral infarction, unspecified Status: Acute Assessment and Plan: Patient was found to have acute right frontal lobe white matter infarct on her MRI which could be contributing to her mental status change. She will be started on aspirin 81 mg Carotid Doppler showing less than 50% stenosis bilaterally. Echocardiogram showed normal EF, moderate concentric hypertrophy with asymmetric septal hypertrophy without any outflow tract gradient and grade 3 diastolic dysfunction. Nothing abnormal contributing to her stroke at this time. She was initially on tele when she came to the hospital but this was discontinued yesterday after there were no signs of her having any bradycardic, tachycardic episodes or arrhythmias. Cardiology feels comfortable with her staying off tele at this time. 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 Lipid panel was completed showing total cholesterol, triglycerides, HDL was controlled, but LDL was 97. And she has had a stroke LDL should be less than 70. I will increase her simvastatin to 40 mg. Have her check fasting lipid panel in 3 months with PCP. At Plans for possible discharge to SNF. Continue monitoring the patient's symptoms. Continue PT and OT. * I informed the patient's daughter about the current workup and findings. She states since 2005 her mother had gastric bypass surgery. In 2007 she was home alone, very weak and fatigued and fell asleep while sitting on the toilet for hours and had a hypoxic episode and was intubated at [place]. Since then she has had memory issues which has become more severe over the last several years. She states since July her memory is become worse as well as increased agitation. The patient takes care of her own medications and the family is unsure if she is taking everything as prescribed. She will not allow anyone else to touch her medications. Patient refuses see a psychiatrist in the past and is unsure if they can convince her to see someone now. The patient had broken her hip about 6 months ago and she was sent to an SNF for she was released early due to her agitation and since then she has not been able to be very mobile since she never completed her therapy postop. (2) Seizure: Code(s): R56.9 - Unspecified convulsions Status: Acute Assessment and Plan: Family states it looks like she had a seizure prior to arrival which is why she was brought into the ER. Patient was started on IV Keppra 500 mg q.12 on arrival to the ER Patient had an EEG performed 03/31/2020 which showed no acute abnormalities. MRI of her brain did show a probable punctate acute infarct to the right frontal lobe white matter. And chronic age-related findings. I discussed this with Dr. Roche the neurologist who recommended starting patient on 81 mg aspirin daily Discussed with Dr. Roche but the patient's rising creatinine. Explained to could be from Lasix versus Keppra. He wants Keppra to be discontinued at this time and switch her to Depakote extended release 500 mg once daily by mouth. We can continue monitoring her overnight to ensure she is not have any breakthrough seizures. He also states that her medication Wellbutrin could also cause seizures and she has not made any adjustments at this time. Continue monitoring the patient and seizure precautions are initiated. (3) MYLES (acute kidney injury): Code(s): N17.9 - Acute kidney failure, unspecified Status: Acute Assessment and Plan: Patient's kidney function has increased over the last 2 days. Of 1.1 on 03/31, did increase to 1.3 and then 1.5 today. It could be secondary to restarting her home Lasix which is 40 mg twice a day as well
[2020-04-02] MEDS: DIVALPROEX SODIUM ER 500 MG TAB PO (12:29)
[2020-04-02] MEDS: hydrOXYzine HCL 25 MG TABLET PO (12:36)
[2020-04-02] MEDS: DEXTROSE 50% 25 GM/50 ML SYRINGE IV PUSH (13:04)
[2020-04-02 13:05] LABS: Glucose Point of Care 57 (65-105)
[2020-04-02 13:28] LABS: Glucose Point of Care 135 (65-105)
[2020-04-02 14:00] VITALS: BP 128/71; PULSE 90; RESP 16; TEMP 36.2; O2SAT 92
--- NOTE | 2020-04-02 16:18 | WPDNEUROPN ---
Progress Note: A&P Assessment and Plan (1) MYLES (acute kidney injury): Code(s): N17.9 - Acute kidney failure, unspecified Status: Acute (2) Acute CVA (cerebrovascular accident): Code(s): I63.9 - Cerebral infarction, unspecified Status: Acute (3) Anxiety: Code(s): F41.9 - Anxiety disorder, unspecified Status: Acute (4) Seizure: Code(s): R56.9 - Unspecified convulsions Status: Acute (5) History of right hip hemiarthroplasty: Code(s): Z96.641 - Presence of right artificial hip joint Status: Acute (6) Chronic venous stasis dermatitis of both lower extremities: Code(s): I87.2 - Venous insufficiency (chronic) (peripheral) Status: Acute (7) Hx of deep venous thrombosis: Code(s): Z86.718 - Personal history of other venous thrombosis and embolism Status: Acute (8) Esophageal ulcer: Qualifiers: Esophageal ulcer bleeding: without bleeding Qualified Code(s): K22.10 - Ulcer of esophagus without bleeding Code(s): K22.10 - Ulcer of esophagus without bleeding Status: Acute Additional Plan because of her renal dysfunction I have suggested to discontinue Keppra and start her on Depakote however that needs to be followed with the liver function testing and the CBC relatively frequently which the primary care physician can on do it at this point the patient is not willing go to [facility] but would prefer to have a home health which the chronic care nurse team should give her the different options and go from the Review of Systems Review of Systems: All systems reviewed & are unremarkable except as noted in HPI and below Exam Const: General: comfortable and no acute distress HENMT: General nose exam: Normal nares present Mouth: Yes moist mucous membranes Eyes: General: appearance normal, both eyes and all related structures Neck: Neck: supple and no JVD Resp: Effort & Inspection: normal respiratory effort Auscultation: clear to auscultation bilaterally Cardio: Rate: regular rate Rhythm: regular rhythm Skin: General skin exam: normal color and no rashes or lesions noted Neuro: Other: patient is awake alert well oriented with fluent speech and language function as she did have yesterday she is much more alert much more cooperative feeling good not any distress she does have a cognitive deficit most likely related to the previous anoxia and also underlying psychiatric disorder without any lateralizing focal motor deficit Extrem: General: normal to inspection Psych: Other: short-term memory deficit Objective Data Vital Signs Vital Signs: Vital Signs - 24 hr 04/01/20 21:58 04/02/20 05:59 04/02/20 14:00 Temperature 36.9 C 36.5 C 36.2 C L Pulse Rate 82 78 90 Respiratory Rate 18 18 16 Blood Pressure 134/73 134/60 128/71 Pulse Oximetry 97 95 92 Intake/Output Intake/Output: Intake & Output 03/30/20 03/31/20 04/01/20 04/02/20 23:59 23:59 23:59 23:59 Intake Total 200 1355 1400 840 Output Total 680 Balance 200 1355 720 840 Meds/Results Medications: Active Medications Generic Name Dose Route Start Last Admin Trade Name Freq PRN Reason Stop Dose Admin Apixaban 5 mg 03/30/20 09:00 04/02/20 09:13 Eliquis PO 5 mg Q12HR DELMAR Administration Aspirin 81 mg 04/01/20 09:00 04/02/20 09:13 Aspirin Ec PO 81 mg QAM DELMAR Administration Bupropion HCl 300 mg 03/30/20 09:00 04/02/20 09:13 Wellbutrin Xl (24 Hr) PO 300 mg QAM DELMAR Administration Buspirone HCl 15 mg 03/29/20 22:00 04/02/20 12:29 Buspar PO 15 mg TID DELMAR Administration Dextrose 12.5 gm 03/29/20 21:32 04/02/20 13:04 Dextrose 50% Syringe IV PUSH 12.5 gm PRN PRN Administration Hypoglycemia Protocol Divalproex Sodium 500 mg 04/02/20 11:45 04/02/20 12:29 Depakote Er PO 500 mg DAILY DELMAR Administration Docusate Sodium 100 mg 04/01/20 21:00 04/02/20 09:13 Col
[2020-04-02] MEDS: GLUCOSE ORAL GEL 15 GM OF GLUCSE IN 37.5 GM TUBE PO (17:37)
[2020-04-02 17:59] LABS: Glucose Point of Care 85 (65-105)
[2020-04-02 18:30] LABS: Glucose Point of Care 69 (65-105)
[2020-04-02 21:04] LABS: Glucose Point of Care 137 (65-105)
[2020-04-02] MEDS: SIMVASTATIN 20 MG TABLET PO (21:19)
[2020-04-02 22:00] VITALS: BP 145/62; PULSE 85; RESP 16; TEMP 36.9; O2SAT 100
[2020-04-03 00:49] LABS: Alanine Aminotransferase 12 U/L (4-35); Albumin Level 3.1 g/dL (3.5-5.1); Alkaline Phosphatase 72 U/L (38-126); Anion Gap 4 mmol/L (8-16); Aspartate Amino Transferase 15 U/L (14-36); Bilirubin,Total 0.3 mg/dL (0.2-1.3); Blood Urea Nitrogen 34 mg/dL (7-17); Calcium 8.2 mg/dL (8.4-10.2); Carbon Dioxide 24 mmol/L (22-30); Chloride 109 mmol/L (98-107); Estimated CRCL calculation 28 ml/min; Estimated Glomerular Filt Rate 37; Glucose 98 mg/dL (65-105); Potassium 4.1 mmol/L (3.4-5.0); Sodium 137 mmol/L (137-145)
[2020-04-03 05:56] LABS: Hematocrit 33.5 % (37.0-47.0); Hemoglobin 10.7 g/dL (12.0-15.0); Mean Corpuscular HGB Conc 31.9 g/dl (32-36); Mean Corpuscular Hemoglobin 29.8 pg (26-34); Mean Corpuscular Volume 93.3 fl (80-100); Mean Platelet Volume 9.5 fl (7.4-10.4); Platelet Count Result 194 k/mm3 (150-375); Red Blood Count 3.59 M/mm3 (4.2-5.4); Red Cell Distribution Width 14.1 % (11.5-14.5)
[2020-04-03 06:00] VITALS: BP 141/62; PULSE 72; RESP 16; TEMP 37.2; O2SAT 96
[2020-04-03] MEDS: LEVOTHYROXINE SODIUM 112 MCG TABLET PO (06:02)
[2020-04-03 06:07] LABS: Alanine Aminotransferase 11 U/L (4-35); Albumin Level 3.1 g/dL (3.5-5.1); Alkaline Phosphatase 71 U/L (38-126); Anion Gap 5 mmol/L (8-16); Aspartate Amino Transferase 15 U/L (14-36); Bilirubin,Total 0.3 mg/dL (0.2-1.3); Blood Urea Nitrogen 31 mg/dL (7-17); Calcium 8.2 mg/dL (8.4-10.2); Carbon Dioxide 25 mmol/L (22-30); Chloride 109 mmol/L (98-107); Estimated CRCL calculation 28 ml/min; Estimated Glomerular Filt Rate 37; Glucose 102 mg/dL (65-105); Potassium 3.8 mmol/L (3.4-5.0); Sodium 139 mmol/L (137-145)
[2020-04-03 08:42] LABS: Glucose Point of Care 88 (65-105)
[2020-04-03] MEDS: FERROUS SULFATE 324 MG TABLET PO ×2 (09:00→16:57)
[2020-04-03] MEDS: PANTOPRAZOLE 40 MG TABLET PO (09:01)
[2020-04-03] MEDS: busPIRone HCL 5 MG TABLET 15 MG PO ×3 (09:01→16:57)
[2020-04-03] MEDS: hydrALAZINE 5 MG TABLET PO ×3 (09:01→16:58)
[2020-04-03] MEDS: APIXABAN 5 MG TABLET PO (09:01)
[2020-04-03] MEDS: buPROPion HCL XL (24 HR) 150 MG TABCR 300 MG PO (09:01)
[2020-04-03] MEDS: ASPIRIN 81 MG ENTERIC TABLET PO (09:01)
[2020-04-03] MEDS: DOCUSATE SODIUM 100 MG CAPSULE PO (09:02)
[2020-04-03] MEDS: DIVALPROEX SODIUM ER 500 MG TAB PO (09:02)
[2020-04-03] MEDS: lisinopriL 10 MG TABLET PO (09:02)
[2020-04-03] MEDS: hydrOXYzine HCL 25 MG TABLET PO (10:01)
[2020-04-03 12:39] LABS: Glucose Point of Care 79 (65-105)
[2020-04-03 14:00] VITALS: BP 111/78; PULSE 94; RESP 16; TEMP 36.8; O2SAT 97
--- NOTE | 2020-04-03 14:40 | PM.DS ---
DS: Admitting Diagnosis Admitting Diagnosis Admitting Diagnosis: ams-seizure vs arrhythmia versus other DS: Discharge Diagnosis Discharge Diagnosis (1) Acute CVA (cerebrovascular accident): Code(s): I63.9 - Cerebral infarction, unspecified Status: Acute Assessment and Plan: Patient was found to have acute right frontal lobe white matter infarct on her MRI which could be contributing to her mental status change. She will be started on aspirin 81 mg Carotid Doppler showing less than 50% stenosis bilaterally. Echocardiogram showed normal EF, moderate concentric hypertrophy with asymmetric septal hypertrophy without any outflow tract gradient and grade 3 diastolic dysfunction. Nothing abnormal contributing to her stroke at this time. MRI of her brain did show a probable punctate acute infarct to the right frontal lobe white matter. And chronic age-related findings. I discussed this with Dr. Roche the neurologist who recommended starting patient on 81 mg aspirin daily She was initially on tele when she came to the hospital but this was discontinued yesterday after there were no signs of her having any bradycardic, tachycardic episodes or arrhythmias. Cardiology feels comfortable with her staying off tele at this time. 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 Lipid panel was completed showing total cholesterol, triglycerides, HDL was controlled, but LDL was 97. And she has had a stroke LDL should be less than 70. I will increase her simvastatin to 40 mg. Have her check fasting lipid panel in 3 months with PCP. Patient is doing well with physical and occupational therapy. She is able to be discharged home with home health after walking 86 ft with a standby assist. * I informed the patient's daughter about the current workup and findings. She states since 2005 her mother had gastric bypass surgery. In 2007 she was home alone, very weak and fatigued and fell asleep while sitting on the toilet for hours and had a hypoxic episode and was intubated at [place]. Since then she has had memory issues which has become more severe over the last several years. She states since July her memory is become worse as well as increased agitation. The patient takes care of her own medications and the family is unsure if she is taking everything as prescribed. She will not allow anyone else to touch her medications. Patient refuses see a psychiatrist in the past and is unsure if they can convince her to see someone now. The patient had broken her hip about 6 months ago and she was sent to an SNF for she was released early due to her agitation and since then she has not been able to be very mobile since she never completed her therapy postop. (2) Seizure: Code(s): R56.9 - Unspecified convulsions Status: Acute Assessment and Plan: Family states it looks like she had a seizure prior to arrival which is why she was brought into the ER. Patient was started on IV Keppra 500 mg q.12 on arrival to the ER Patient had an EEG performed 03/31/2020 which showed no acute abnormalities. Discussed with Dr. Roche but the patient's rising creatinine. Explained to could be from Lasix versus Keppra. He wants Keppra to be discontinued at this time and switch her to Depakote extended release 500 mg once daily by mouth. She has not had any breakthrough seizures while hospitalized. He also states that her medication Wellbutrin could also cause seizures and she has not made any adjustments at this time. She is stable for discharge home. Have to monitor LFTs and CBC routinely with PCP. Will recheck in 1 week (3) MYLES (acute kidney injury): Code(s): N17.9 - Acute kidney failure, unspecified Status: Acute Assessment and Plan: Patient's kidney function has in
[2020-04-03 17:42] LABS: Glucose Point of Care 89 (65-105)
== END 2020-04-03 18:40 | disposition home health service (06) | DRG 65 ==
LOC: ANHED 15:45 → ANH3MED 15:57 → ANHIMU 22:48 → ANH3MEDSUR 03-31 03:40
PROVIDERS: Family Medicine; Internal Medicine; Nurse Practitioner; Psychiatry & Neurology Neurology; Admitting Provider Family Medicine; Emergency Provider Emergency Medicine; PCP Family Medicine; Visit Provider Physician Assistant
DX: I63.9 Cerebral infarction, unspecified (principal); N17.9 Acute kidney failure, unspecified; K22.10 Ulcer of esophagus without bleeding; R56.9 Unspecified convulsions; R41.82 Altered mental status, unspecified; Z20.828 Contact with and (suspected) exposure to other viral communicable diseases; R07.9 Chest pain, unspecified; K21.9 Gastro-esophageal reflux disease without esophagitis; E78.5 Hyperlipidemia, unspecified; E11.42 Type 2 diabetes mellitus with diabetic polyneuropathy; I10 Essential (primary) hypertension; F41.9 Anxiety disorder, unspecified; D50.0 Iron deficiency anemia secondary to blood loss (chronic); F31.9 Bipolar disorder, unspecified; E03.9 Hypothyroidism, unspecified; M21.379 Foot drop, unspecified foot; R79.89 Other specified abnormal findings of blood chemistry; I87.2 Venous insufficiency (chronic) (peripheral); Z96.641 Presence of right artificial hip joint; Z86.718 Personal history of other venous thrombosis and embolism; Z98.84 Bariatric surgery status; I25.2 Old myocardial infarction; Z86.73 Personal history of transient ischemic attack (TIA), and cerebral infarction without residual deficits; Z90.49 Acquired absence of other specified parts of digestive tract; Z79.01 Long term (current) use of anticoagulants; Z86.711 Personal history of pulmonary embolism
CPT/HCPCS: 36415; 51701; 70450; 70551; 71045; 80048; 80053; 80061; 81001; 82607; 82728; 82746; 83036; 83540; 83550; 83735; 84439; 84443; 84466; 84480; 84484; 85025; 85027; 85610; 85730; 87635; 93005; 93306; 93880; 95816; 96361; 96365; 96368; 96372; 96374; 96375; 96376; 97110; 97116; 97161; 97165; 97530; 97535; 99285; A9270; C9803; G0378; J0131; J0360; J1630; J1953; J2060; J3420; J3475; J7030; J7120; U0003

== ENCOUNTER 2020-11-20 18:43 | Inpatient (IN) | payer OTHER, SELFPAY ==
--- NOTE | ~2020-11-20 | CT_ITS ---
EXAMINATION: CT abdomen pelvis w con EXAM DATE: 11/20/2020 22:02 INDICATION: Abdominal distention. TECHNIQUE: Spiral CT of the abdomen and pelvis was performed following intravenous injection of 100 m L Omnipaque 350. Axial, coronal and sagittal images of the abdomen and pelvis were reviewed. The do se-length product (DLP) for this examination was 1129.11 mGy-cm. The exposure was tailored according to patient size (auto mA exposure control), and iterative reconstruction (ASIR) was used as addition al dose reduction technique. Comparison is made to prior examination from 08/04/2011. FINDINGS: Numerous splenic hypodensities, 4 mm or less which are nonspecific. Granulomatous process p robably most likely. The liver, adrenal glands and pancreas are unremarkable. Gallbladder not ident ified, patient likely has had cholecystectomy. Portal and splenic veins are patent. Kidneys enhance symmetrically. There is no hydronephrosis. Scattered bilateral exophytic renal cysts. Fibroid. Sma ll amount of fluid in the endometrial canal and also punctate focus of gas. There is a Vo cathete r in position. There is no retroperitoneal or pelvic lymphadenopathy. There is mild scattered kymberly riosclerotic disease. Incidental lipoma along the right lateral abdominal wall. Moderate generalized body wall fat stranding. Small umbilical hernia containing nonobstructed small bowel. There are no findings to suggest appendicitis. Gastroesophageal junction surgical changes. Small bow el anastomosis site. There is moderate amount of colonic stool. There is mild to moderate scattered c olonic diverticulosis. There is no adjacent inflammatory change to suggest diverticulitis. No free intraperitoneal gas. The heart is normal in size. There are no pericardial or pleural effusions. The lung bases are unremarkable. There are no osteoblastic or osteolytic lesions identified. Mild to moderate compression fractures which appear chronic at the T10 and L1 levels, mild at L3. IMPRESSION: 1. Moderate amount colonic stool. Scattered diverticula. 2. Fibroid and suspect small endometrial fluid. Also punctate endometrial gas pocket. Nonemergent pe lvic sonogram should be considered to exclude endometrial thickening/cancer. 3. Numerous splenic hypodensities most likely chronic granulomatous process. 4. Surgical changes. 5. No obstruction or other acute findings. Reviewed, dictated and finalized at location A. IMPRESSION: 1. Moderate amount colonic stool. Scattered diverticula. 2. Fibroid and suspect small endometrial fluid. Also punctate endometrial gas pocket. Nonemergent pelvic sonogram should be considered to exclude endometrial thickening/cancer. 3. Numerous splenic hypodensities most likely chronic granulomatous process. 4. Surgical changes. 5. No obstruction or other acute findings.
--- NOTE | ~2020-11-20 | XR_ITS ---
EXAMINATION: XR chest 1V portable EXAM DATE: 11/20/2020 20:23 INDICATION: Shortness of breath, HX: Reflux, diabetes, hypertension. TECHNIQUE: Portable AP frontal chest x-ray was obtained. Comparison is made to prior examination from 03/29/2020. FINDINGS: The lungs are clear. There are no pleural effusions. Cardiac silhouette is prominent but magnified on this AP technique. There is no pneumothorax suspected. Bones are osteopenic. Old righ t rib fractures. IMPRESSION: No acute cardiopulmonary findings. Reviewed, dictated and finalized at location A.
--- NOTE | ~2020-11-20 | US_ITS ---
EXAMINATION: US pelvic complete DATE: 11/21/2020 13:46 INDICATION: Endometrial thickening. TECHNIQUE: Multiple transabdominal and transvaginal sonographic images of the pelvis were obtained. COMPARISON: CT abdomen and pelvis 11/20/2020 FINDINGS: TRANSABDOMINAL ULTRASOUND: The uterus measures 6.2 x 3.6 x 4.3 cm. There is no free fluid in the pelvis. TRANSVAGINAL ULTRASOUND: The endometrial complex measures 10 mm in thickness. There is a 19 mm calcified submucosal fibroid. T he right ovary is not visualized. The left ovary measures 2.9 x 1.4 x 1.5 cm. IMPRESSION: 1. Thickened endometrial complex. The differential diagnosis includes endometrial hyperplasia, polyp, and carcinoma. Biopsy is recommended. 2. Submucosal uterine fibroid. Reviewed, dictated and finalized at location B. IMPRESSION: 1. Thickened endometrial complex. The differential diagnosis includes endometri al hyperplasia, polyp, and carcinoma. Biopsy is recommended. 2. Submucosal uterine fibroid.
--- NOTE | ~2020-11-20 | US_ITS ---
EXAMINATION: US venous doppler [facility] DATE: 11/21/2020 08:18 INDICATION: Lower limb edema. TECHNIQUE: Grayscale ultrasound images without and with compression and Doppler ultrasound images of the bilateral lower extremity veins were obtained. COMPARISON: Ultrasound 08/07/2019 FINDINGS: The visualized portions of right common femoral vein, profunda (deep) femoral vein, femoral vein, pop liteal vein, peroneal veins, posterior tibial veins, and greater saphenous vein outflow are patent. The visualized portions of left common femoral vein, profunda femoral vein, popliteal vein, peroneal veins, posterior tibial veins, and greater saphenous vein outflow are patent. There is linear chronic thrombus in left femoral vein. IMPRESSION: 1. No acute deep venous thrombosis. 2. Small volume of chronic linear thrombus in left femoral vein. Reviewed, dictated and finalized at location B.
[2020-11-20 19:37] VITALS: BP 148/107; PULSE 84; RESP 18; TEMP 36.5; O2SAT 96
[2020-11-20 20:26] VITALS: BP 192/95; PULSE 87; RESP 17; TEMP 36.4; O2SAT 97
[2020-11-20 20:29] LABS: Basophils Absolute Auto 0.1 K/mm3 (0.0-0.1); Basophils Percent Auto 0.7 % (0.2-1.2); Eosinophils Absolute Auto 0.3 K/mm3 (0-0.3); Eosinophils Percent Auto 3.6 % (0-4.4); Hematocrit 38.4 % (37.0-47.0); Immature Granulocyte Absolute 0.02 K/mm3 (0.00-0.031); Immature Granulocyte Percent A 0.3 % (0-0.5); Lymphocytes Absolute Auto 0.45 K/mm3 (0.9-3.2); Lymphocytes Percent Auto 6.4 % (18.3-44.2); Mean Corpuscular HGB Conc 31.3 g/dl (32-36); Mean Corpuscular Hemoglobin 29.3 pg (26-34); Mean Corpuscular Volume 93.7 fl (80-100); Mean Platelet Volume 9.7 fl (7.4-10.4); Monocytes Absolute Auto 0.7 K/mm3 (0.1-0.6); Monocytes Percent Auto 10.3 % (2.6-8.5); Neutrophils Absolute Auto 5.5 K/mm3 (1.3-6.7); Neutrophils Percent Auto 78.7 % (45.5-73.1); Platelet Count Result 253 k/mm3 (150-375); Red Cell Distribution Width 16.5 % (11.5-14.5)
[2020-11-20 20:40] LABS: Alanine Aminotransferase 14 U/L (4-35); Albumin Level 4.4 g/dL (3.5-5.1); Alkaline Phosphatase 114 U/L (38-126); Anion Gap 8 mmol/L (8-16); Aspartate Amino Transferase 26 U/L (14-36); Bilirubin,Total 0.3 mg/dL (0.2-1.3); Blood Urea Nitrogen 29 mg/dL (7-17); Calcium 9.2 mg/dL (8.4-10.2); Carbon Dioxide 28 mmol/L (22-30); Chloride 107 mmol/L (98-107); Estimated CRCL calculation 35 ml/min; Estimated Glomerular Filt Rate 49; Glucose 102 mg/dL (65-105); Potassium 4.4 mmol/L (3.4-5.0); Sodium 143 mmol/L (137-145)
[2020-11-20 20:43] LABS: INR 1.2; Prothrombin Time 15.8 Seconds (11.1-14.7)
[2020-11-20 20:48] LABS: NT Pro B Type Natriuretic Pept 1190 pg/mL (5-100)
[2020-11-20 21:27] LABS: Add Urine Microscopic? YES; Appearance Urine Clear (Clear); Bacteria Urine Trace /hpf; Bilirubin Urine Negative (Negative); Blood Urine 1+ (Negative); Color Urine Colorless (Yellow); Glucose Urine UA Negative (Negative); Ketones Urine Negative (Negative); Leukocyte Esterase Ur Negative LEU/UL (Negative); Nitrate Urine Negative (Negative); Protein Urine 1+ mg/dL (Negative); RBC Urine 0-2 /hpf (0-2); Specific Grav Ur 1.008 (1.001-1.035); Squamous Epithelial Cell Urine Rare /hpf (Few); Urobilinogen Urine Negative mg/dL (<2.0)
--- NOTE | 2020-11-20 21:39 | PC.NURSE ---
pt to CT.
[2020-11-20 22:40] VITALS: PULSE 87; RESP 20; O2SAT 99
--- NOTE | 2020-11-20 23:03 | ECG_ITS ---
Measurements Intervals [place] Rate: 83 P: -20 AR: 172 QRS: -36 QRSD: 76 T: -3 QT: 385 QTc: 455 Interpretive Statements SINUS RHYTHM BORDERLINE R WAVE PROGRESSION, ANTERIOR LEADS BASELINE ARTIFACT- I, III, AVL, V2 BORDERLINE ECG Electronically Signed On 11-21-2020 7:03:25 CDT by Kenji Lassiter D.O.
[2020-11-20 23:09] VITALS: BP 172/96
--- NOTE | 2020-11-20 23:18 | ED.GENADULT ---
HPI - General Adult General Chief complaint: Unspecified Stated complaint: fluid retention Time Seen by Provider: 11/20/20 19:44 Source: patient and family Mode of arrival: wheelchair Limitations: no limitations History of Present Illness HPI narrative: 70-year-old with multiple medical problems brought in by with complaints of bilateral leg swelling which is progressively getting worse. Patient states that her legs are swollen all the way up to her groin and now her abdomen is getting bigger. She also complains of abdominal pain and distention which has been ongoing for past few days. She denies any chest pain. She also complains of mild shortness of breath with ambulation. No history of fever or chills. Patient states that she has no control with urination. Patient also mentions her legs are getting red. Onset (ago): week(s) (1) Location: lower extremity Severity: moderate Quality: aching Associated symptoms: denies other symptoms Related Data Home Medications Medication Instructions Recorded Confirmed buspirone 15 mg PO TID 07/16/19 03/29/20 furosemide 40 mg PO BID 07/16/19 03/29/20 hydroxyzine HCl 25 mg PO Q8H PRN 07/16/19 03/29/20 levothyroxine 112 mcg PO DAILY 07/28/19 03/29/20 alum-mag hydroxide-simeth 15 ml PO QID PRN 09/14/19 03/29/20 [Almacone] bupropion HCl 300 mg PO QAM 03/29/20 03/29/20 lisinopril 10 mg PO DAILY 03/29/20 03/29/20 pantoprazole 40 mg PO DAILY 03/29/20 03/29/20 Allergies Allergy/AdvReac Type Severity Reaction Status Date / Time No Known Allergies Allergy Verified 03/29/20 11:21 Review of Systems Review of Systems: All systems reviewed & are unremarkable except as noted in HPI and below Constitutional: Constitutional: Reports no additional constitutional complaints Eyes: Eyes: Reports no additional eye complaints Cardiovascular: Cardiovascular: Reports no additional cardiovascular complaints Respiratory: Respiratory: Reports no additional respiratory complaints Gastrointestinal: Gastrointestinal: Reports no additional gastrointestinal complaints Genitourinary: Genitourinary: Reports as per HPI Musculoskeletal: Musculoskeletal: Reports as per HPI Integumentary/Breasts: Skin/Breast: Reports as per HPI Psychiatric: Psychiatric: Reports no additional psychiatric complaints PMF Past Medical History Medical History (Updated 11/20/20 @ 23:41 by Bo Guillen MD) Anxiety Bipolar 1 disorder Bowel obstruction Chronic venous stasis dermatitis of both lower extremities Depression Diabetes A1c 5.15 july 2019 DVT (deep venous thrombosis) Esophageal ulcer Foot drop GERD (gastroesophageal reflux disease) Heart attack HTN (hypertension) Hyperlipidemia Hypothyroid Osteoarthritis of right hip Peripheral neuropathy Pneumonia Post-menopausal Renal failure TIA (transient ischemic attack) Surgical History Surgical History H/O tooth extraction History of section History of cholecystectomy History of gastric bypass History of right hip hemiarthroplasty July 2019 Family History Family History Mother Congestive heart failure Father Malignant neoplasm of prostate Cerebrovascular accident Diabetes mellitus Other Diabetes mellitus Daughter Thyroid disease Unknown Diabetes mellitus Heart disease Cancer Cerebrovascular accident Hypertension Social History Social History Social History: Patient lives with her . She does have 1 daughter who lives nearby with whom she interacts and 1 other daughter that she does not see often. She is a full code. She does not have a designated POA but does ask about her as well as eldest daughter, Jon Padilla be her contacts. She is a never smoker. No alcohol use. Smoking status: Never smoker Alcohol int
[2020-11-21] VITALS (12 sets, daily range): BP systolic 114–172; BP diastolic 55–91; PULSE 75–95; RESP 16; TEMP 36.2–36.5; O2SAT 95–96; BMI 32.9
--- NOTE | 2020-11-21 | ECHO_ITS ---
Patient Info Name: Sonya Johnson Age: 70 years : 1950 Gender: Female Ht: 63 in Wt: 130 lbs BSA: 1.63 m2 HR: 81 bpm BP: 116 / 55 mmHg Heart Rhythm: Sinus Rhythm Technical Quality: Good Exam Date: 11/21/2020 10:28 AM Exam Location: [facility] Pulmonary Patient Status: Inpatient Admit Date: 11/20/2020 Staff Ordering Physician: Bo Guillen MD Applications Coordinator: JC Attending Provider: Ray Velez MD Exam Type: CA echo doppler color flow Study Info Indications I50.9 - Heart failure, unspecified Complete two-dimensional, color flow and Doppler transthoracic echocardiogram is performed. Summary 1. Complete two-dimensional, color flow and Doppler transthoracic echocardiogram is performed. 2. Left ventricular chamber dimension is normal. 3. Left ventricular systolic function is hyperdynamic, estimated at >70%. 4. There is severe asymmetric septal increased left ventricular wall thickness. 5. The left ventricular diastolic function is grade I diastolic dysfunction. 6. Left atrial chamber dimension is mildly enlarged. 7. There is mild mitral valve regurgitation. 8. There is mild tricuspid valve regurgitation. 9. Mild pulmonary hypertension, estimated pulmonary arterial systolic pressure is 39 mmHg. Left Ventricle Left ventricular chamber dimension is normal. Left ventricular systolic function is hyperdynamic, estimated at >70%. There is severe asymmetric septal increased left ventricular wall thickness. The left ventricular diastolic function is grade I diastolic dysfunction. Right Ventricle Right ventricular chamber dimension is normal. Right ventricular systolic function is normal. Left Atria Left atrial chamber dimension is mildly enlarged. Right Atria Right atrial chamber dimension is normal. Atrial Septum Intact interatrial septum visualized by color flow imaging. Aortic Valve The aortic valve is trileaflet. There is mild aortic valve sclerosis. There is no aortic valve stenosis. There is trace aortic valve regurgitation. Pulmonic Valve The pulmonic valve is normal. There is no pulmonic valve stenosis. There is trace pulmonic regurgitation. Mitral Valve The mitral valve has calcified annulus. There is no mitral valve stenosis. There is mild mitral valve regurgitation. Tricuspid Valve The tricuspid valve leaflets are normal. There is no significant tricuspid valve stenosis. There is mild tricuspid valve regurgitation. Mild pulmonary hypertension, estimated pulmonary arterial systolic pressure is 39 mmHg. Pericardium/Pleural The pericardium appears normal. There is no pericardial effusion. Inferior Vena Cava Normal inferior vena cava with <50% collapse upon inspiration consistent with elevated right atrial pressure, 10 mmHg. Aorta The aortic root size at the sinus of Valsalva is normal. Left Ventricular Outflow Tract Name Value Normal LVOT 2D LVOT Diameter 2.0 cm LVOT Doppler LVOT Peak Gradient 5 mmHg LVOT Mean Gradient 3 mmHg LVOT VTI 30 cm
[2020-11-21] MEDS: FUROSEMIDE INJ 40 MG/4 ML VIAL IV PUSH ×3 (00:03→20:47)
--- NOTE | 2020-11-21 00:38 | ADMGEN ---
This patient, Sonya Johnson, was admitted to 2 Medical Room 241-. Patient/family oriented to hospital policies and general routines including ID bracelet, bed and alarms, visiting hours, pain management, procedures, bathroom and other care routines, personal items, smoking policy, room service/diet, and visiting hours. Information on how to activate the Rapid Response Team has been discussed. Patient/Family are encouraged to report perceived risks to care and to ask questions if they do not understand what they are told or what they should do.
--- NOTE | 2020-11-21 02:15 | PM.IMHP ---
H&P: HPI History of Present Illness Date/Time: 11/21/20 02:15 Chief Complaint: leg swelling Narrative: 70-year-old with multiple medical problems brought in by with complaints of bilateral leg swelling which is progressively getting worse. Patient states that her legs are swollen all the way up to her groin and now her abdomen is getting bigger. She also complains of abdominal pain and distention which has been ongoing for past few days. She denies any chest pain. She also complains of mild shortness of breath with ambulation. No history of fever or chills. Patient states that she has no control with urination. Patient also mentions her legs are getting red which is not usual for her. Review of Systems Review of Systems: Narrative: - CONSTITUTIONAL: Denies weight loss, fever and chills. - HEENT: Denies changes in vision and hearing - RESPIRATORY: Denies SOB and cough. - CV: Denies palpitations and CP. - GI: Denies abdominal pain, nausea, vomiting and diarrhea. - : Denies dysuria and urinary frequency. - MSK: Denies myalgia and joint pain. - SKIN: Denies rash and pruritus. - NEUROLOGICAL: Denies headache and syncope. - PSYCHIATRIC: Denies recent changes in mood. Denies anxiety and depression. All systems reviewed & are unremarkable except as noted in HPI and below PMFSH Past Medical History Medical History (Updated 11/20/20 @ 23:41 by Bo Guillen MD) Anxiety Bipolar 1 disorder Bowel obstruction Chronic venous stasis dermatitis of both lower extremities Depression Diabetes A1c 5.15 july 2019 DVT (deep venous thrombosis) Esophageal ulcer Foot drop GERD (gastroesophageal reflux disease) Heart attack HTN (hypertension) Hyperlipidemia Hypothyroid Osteoarthritis of right hip Peripheral neuropathy Pneumonia Post-menopausal Renal failure TIA (transient ischemic attack) Surgical History Surgical History H/O tooth extraction History of section History of cholecystectomy History of gastric bypass History of right hip hemiarthroplasty July 2019 Family History Family History (Updated 11/21/20 @ 01:05 by Heather Corbin RN) Mother Congestive heart failure Heart disease Thyroid disease Father Malignant neoplasm of prostate Diabetes mellitus Cerebrovascular accident Cancer Hypertension Other No problems noted. Daughter Thyroid disease Unknown No problems noted. Social History Social History Social History: Patient lives with her . She does have 1 daughter who lives nearby with whom she interacts and 1 other daughter that she does not see often. She is a full code. She does not have a designated POA but does ask about her as well as eldest daughter, Jon Padilla be her contacts. She is a never smoker. No alcohol use. Smoking status: Never smoker Alcohol intake: never Substance use: never Substance use type: does not use Gender identity (if verbalized by the patient): Female Spiritual care concerns: No Agree to blood products: Yes Meds Home Medications and Allergies Home Medications Medication Instructions Recorded Confirmed Type buspirone 15 mg PO TID 07/16/19 11/21/20 History furosemide 40 mg PO DAILY 07/16/19 11/21/20 History hydroxyzine HCl 25 mg PO Q8H PRN 07/16/19 11/21/20 History levothyroxine 112 mcg PO DAILY 07/28/19 11/21/20 History Eliquis 5 mg PO Q12HR #60 tablet 08/09/19 11/21/20 Rx acetaminophen 1,000 mg PO Q6H PRN #30 tablet 08/09/19 11/21/20 Rx bupropion HCl 300 mg PO QAM 03/29/20 11/21/20 History lisinopril 10 mg PO DAILY 03/29/20 11/21/20 History pantoprazole 40 mg PO DAILY 03/29/20 11/21/20 History aspirin [Adult Low Dose Aspirin] 81 mg PO DAILY #30 tablet 04/03/20 11/21/20 Rx hydralazine 5 mg PO QID 30 Days #60 tablet 04/03/20 11/21/20 Rx simvastatin 40 mg PO
[2020-11-21] MEDS: MELATONIN 5 MG TABLET PO ×2 (03:00→20:46)
[2020-11-21 05:57] LABS: Anion Gap 2 mmol/L (8-16); Blood Urea Nitrogen 25 mg/dL (7-17); Carbon Dioxide 29 mmol/L (22-30); Chloride 108 mmol/L (98-107); Estimated CRCL calculation 44 ml/min; Estimated Glomerular Filt Rate 49; Glucose 91 mg/dL (65-105); Potassium 3.6 mmol/L (3.4-5.0); Sodium 139 mmol/L (137-145)
[2020-11-21] MEDS: LEVOTHYROXINE SODIUM 112 MCG TABLET PO (06:16)
[2020-11-21 07:26] LABS: Glucose Point of Care 96 (65-105)
[2020-11-21] MEDS: hydrALAZINE 5 MG TABLET PO ×4 (08:39→20:47)
[2020-11-21] MEDS: buPROPion HCL XL (24 HR) 150 MG TABCR 300 MG PO (08:39)
[2020-11-21] MEDS: ASPIRIN 81 MG ENTERIC TABLET PO (08:40)
[2020-11-21] MEDS: PANTOPRAZOLE 40 MG TABLET PO ×2 (08:40→20:47)
[2020-11-21] MEDS: busPIRone HCL 5 MG TABLET 15 MG PO ×3 (08:40→16:39)
[2020-11-21] MEDS: polyethylene glycoL 3350 17 GM POWD.PACK PO (08:40)
[2020-11-21] MEDS: lisinopriL 10 MG TABLET PO (08:40)
[2020-11-21] MEDS: APIXABAN 5 MG TABLET PO ×2 (08:40→20:47)
[2020-11-21] MEDS: DOCUSATE SODIUM 100 MG CAPSULE PO ×2 (08:58→20:47)
[2020-11-21 08:59] LABS: Hemoglobin A1C 5.3 % (<5.7)
--- NOTE | 2020-11-21 10:06 | PM.IMPN ---
Progress Note: A&P Assessment and Plan (1) Acute diastolic CHF (congestive heart failure): Code(s): I50.31 - Acute diastolic (congestive) heart failure Status: Acute Assessment and Plan: Patient presents with worsening leg swelling as well also abdominal distension. Patient has a prior echo from March 2020 which shows diastolic dysfunction grade III, within normal EF. Patient reports she has been taking her Lasix 40 mg daily as prescribed. Patient's BNP on arrival was 1190. Chest x-ray shows No acute cardiopulmonary disease. CT abd shows normal appearing liver without ascites. Normal LFTs. Bilateral venous Dopplers were negative for DVT. Continue anticoagulation Patient was admitted into the hospital and started on IV Lasix 40 mg b.i.d. Vo catheter was placed due to urinary incontinence and to further monitor her intake and output Continue monitoring intake and output Check weights daily Repeat echocardiogram Continue Lisinopril, Aspirin, she is not on a Beta Janeth at this time Continue monitoring. (2) Cellulitis: Code(s): L03.90 - Cellulitis, unspecified Status: Acute Assessment and Plan: Patient has erythema to bilateral lower extremities which could be from chronic venous stasis changes along with increased peripheral edema from CHF exacerbation. There is associated warmth in she had chills prior to arrival. Patient had normal white blood cell count, but elevated neutrophils on differential. Continue IV Zosyn and we will continue monitoring her erythema for improvement. Continue monitoring. Recheck labs in the morning. (3) Urinary incontinence: Code(s): R32 - Unspecified urinary incontinence Status: Acute Assessment and Plan: Patient reports having urinary incontinence issues. Vo catheter was placed. Will need to follow-up with urologist as an outpatient. Urinalysis was checked on arrival and negative for any acute infection. (4) Constipation: Code(s): K59.00 - Constipation, unspecified Status: Acute Assessment and Plan: CT scan shows moderate amount of colonic stool in colon. She had a bowel movement this morning. Will continue stool softeners, p.r.n. MiraLax. (5) Depression with anxiety: Code(s): F41.8 - Other specified anxiety disorders Status: Acute Assessment and Plan: Continue patient's bupropion, buspirone. (6) Bipolar 1 disorder: Code(s): F31.9 - Bipolar disorder, unspecified Status: Acute Assessment and Plan: Continue patient's Depakote. (7) HTN (hypertension): Qualifiers: Hypertension type: unspecified Qualified Code(s): I10 - Essential (primary) hypertension Code(s): I10 - Essential (primary) hypertension Status: Chronic Assessment and Plan: Patient's blood pressure this morning was stable at 116/55. Continue monitoring blood pressure with diuresis. (8) Abnormal CT of the abdomen: Code(s): R93.5 - Abnormal findings on diagnostic imaging of other abdominal regions, including retroperitoneum Status: Acute Assessment and Plan: CT abd/pelvis showed Fibroid and suspect small endometrial fluid. Also punctate endometrial gas pocket. Nonemergent pelvic sonogram should be considered to exclude endometrial thickening/cancer. Patient denies any abnormal uterine bleeding or discharge. Pelvic ultrasound will be ordered for further evaluation Continue monitoring. Additional Plan Time Spent With Patient Time with patient: 25 - 35 minutes Subjective Date/t
--- NOTE | 2020-11-21 10:37 | PCOTNOTE ---
OT evaluation attempted, Pt in procedure, will continue to attempt.
[2020-11-21 11:37] LABS: Glucose Point of Care 145 (65-105)
--- NOTE | 2020-11-21 12:33 | PCOTNOTE ---
Attempted OT evaluation, Patient out for procedure, will continue to attempt.
[2020-11-21] MEDS: EUCERIN CREAM 120 GM JAR 1 APPLIC TOPICAL ×2 (12:45→16:40)
[2020-11-21] MEDS: ACETAMINOPHEN 500 MG TABLET 1000 MG PO (12:51)
[2020-11-21] MEDS: hydrOXYzine HCL 25 MG TABLET PO (16:39)
[2020-11-21 16:49] LABS: Glucose Point of Care 107 (65-105)
[2020-11-21] MEDS: SIMVASTATIN 20 MG TABLET 40 MG PO (20:30)
[2020-11-21] MEDS: DIVALPROEX SODIUM ER 500 MG TAB.24H PO (20:47)
[2020-11-21 21:10] LABS: Glucose Point of Care 104 (65-105)
[2020-11-22] VITALS (11 sets, daily range): BP systolic 122–137; BP diastolic 61–73; PULSE 75–104; RESP 16–18; TEMP 36.1–36.4; O2SAT 95–97
[2020-11-22] MEDS: LEVOTHYROXINE SODIUM 112 MCG TABLET PO (06:08)
[2020-11-22 06:10] LABS: Basophils Percent Auto 0.6 % (0.2-1.2); Eosinophils Absolute Auto 0.2 K/mm3 (0-0.3); Hematocrit 29.1 % (37.0-47.0); Hemoglobin 9.4 g/dL (12.0-15.0); Immature Granulocyte Absolute 0.01 K/mm3 (0.00-0.031); Immature Granulocyte Percent A 0.2 % (0-0.5); Lymphocytes Absolute Auto 0.62 K/mm3 (0.9-3.2); Lymphocytes Percent Auto 13.4 % (18.3-44.2); Mean Corpuscular HGB Conc 32.3 g/dl (32-36); Mean Corpuscular Volume 89.8 fl (80-100); Mean Platelet Volume 9.4 fl (7.4-10.4); Monocytes Absolute Auto 0.8 K/mm3 (0.1-0.6); Monocytes Percent Auto 16.4 % (2.6-8.5); Neutrophils Percent Auto 64.4 % (45.5-73.1); Platelet Count Result 210 k/mm3 (150-375); Red Blood Count 3.24 M/mm3 (4.2-5.4); Red Cell Distribution Width 16.3 % (11.5-14.5); White Blood Count 4.6 K/mm3 (4.5-10.0)
[2020-11-22 06:28] LABS: Anion Gap 4 mmol/L (8-16); Blood Urea Nitrogen 32 mg/dL (7-17); Calcium 7.7 mg/dL (8.4-10.2); Carbon Dioxide 32 mmol/L (22-30); Chloride 103 mmol/L (98-107); Estimated CRCL calculation 38 ml/min; Estimated Glomerular Filt Rate 41; Glucose 90 mg/dL (65-105); Magnesium 1.6 mg/dL (1.6-2.3); Potassium 3.8 mmol/L (3.4-5.0); Sodium 139 mmol/L (137-145)
[2020-11-22 07:25] LABS: Glucose Point of Care 98 (65-105)
[2020-11-22] MEDS: busPIRone HCL 5 MG TABLET 15 MG PO ×3 (08:05→17:07)
[2020-11-22] MEDS: buPROPion HCL XL (24 HR) 150 MG TABCR 300 MG PO (08:06)
[2020-11-22] MEDS: hydrALAZINE 5 MG TABLET PO ×4 (08:06→21:42)
[2020-11-22] MEDS: PANTOPRAZOLE 40 MG TABLET PO ×2 (08:07→21:43)
[2020-11-22] MEDS: lisinopriL 10 MG TABLET PO (08:07)
[2020-11-22] MEDS: EUCERIN CREAM 120 GM JAR 1 APPLIC TOPICAL ×2 (08:08→17:09)
[2020-11-22] MEDS: ACETAMINOPHEN 500 MG TABLET 1000 MG PO (08:08)
[2020-11-22] MEDS: MAGNESIUM OXIDE 400 MG TABLET PO (08:13)
[2020-11-22] MEDS: FUROSEMIDE 40 MG TABLET PO ×2 (08:13→17:08)
[2020-11-22 08:22] LABS: Hemoglobin 10.1 g/dL (12.0-15.0)
[2020-11-22 08:39] LABS: Transferrin 205 mg/dL (206-381)
[2020-11-22 09:24] LABS: Iron 32 ug/dL (37-170)
[2020-11-22 09:34] LABS: Percent Iron Saturation 11 % (20-50)
[2020-11-22 09:48] LABS: Folic Acid > 20.0 ng/mL (2.76->20)
[2020-11-22 12:24] LABS: Glucose Point of Care 96 (65-105)
[2020-11-22] MEDS: hydrOXYzine HCL 25 MG TABLET PO ×2 (12:29→21:46)
[2020-11-22] MEDS: CYANOCOBALAMIN 1,000 MCG TABLET 1000 MCG PO (12:29)
--- NOTE | 2020-11-22 13:26 | PM.IMPN ---
Progress Note: A&P Assessment and Plan (1) Acute diastolic CHF (congestive heart failure): Code(s): I50.31 - Acute diastolic (congestive) heart failure Status: Acute Assessment and Plan: Patient presents with worsening leg swelling as well also abdominal distension. Patient has a prior echo from March 2020 which shows diastolic dysfunction grade III, within normal EF. Patient reports she has been taking her Lasix 40 mg daily as prescribed. Patient's BNP on arrival was 1190. Chest x-ray shows No acute cardiopulmonary disease. CT abd shows normal appearing liver without ascites. Normal LFTs. Bilateral venous Dopplers were negative for DVT. Continue anticoagulation. Patient was admitted into the hospital and started on IV Lasix 40 mg b.i.d. She is diuresing well, but creatinine increased slightly. Will switch to PO Lasix 40 mg BID today. Deal catheter was placed due to urinary incontinence and to further monitor her intake and output. Will discontinue deal in the morning and try voiding trial. Continue monitoring intake and output Check weights daily Echocardiogram shows Left ventricular chamber dimension is normal. Left ventricular systolic function is hyperdynamic, estimated at >70%. There is severe asymmetric septal increased left ventricular wall thickness. The left ventricular diastolic function is grade I diastolic dysfunction. Left atrial chamber dimension is mildly enlarged. There is mild mitral valve regurgitation. There is mild tricuspid valve regurgitation. Mild pulmonary hypertension, estimated pulmonary arterial systolic pressure is 39 mmHg. Tele shows NSR rate 90 with no acute arrhythmia. Continue Lisinopril, Aspirin, she is not on a Beta Janeth at this time. Will start beta janeth for rate control and help with CHF, Metoprolol Succinate 12.5 mg daily in the evening. Will continue monitoring on Tele with medication overnight. Continue monitoring. (2) Cellulitis: Code(s): L03.90 - Cellulitis, unspecified Status: Acute Assessment and Plan: Patient has erythema to bilateral lower extremities which could be from chronic venous stasis changes along with increased peripheral edema from CHF exacerbation. There is associated warmth in she had chills prior to arrival. Patient had normal white blood cell count, but elevated neutrophils on differential. Continue IV Zosyn and we will continue monitoring her erythema for improvement. Not much improvement with erythema and warmth. Will continue monitoring, jasbir lines around erythema and will check tomorrow. Continue monitoring. Recheck labs in the morning. (3) Urinary incontinence: Code(s): R32 - Unspecified urinary incontinence Status: Acute Assessment and Plan: Patient reports having urinary incontinence issues. Deal catheter was placed. Will need to follow-up with urologist as an outpatient. Urinalysis was checked on arrival and negative for any acute infection. (4) Constipation: Code(s): K59.00 - Constipation, unspecified Status: Acute Assessment and Plan: CT scan shows moderate amount of colonic stool in colon. She had a bowel movement this morning. Will continue stool softeners, p.r.n. MiraLax. (5) Depression with anxiety: Code(s): F41.8 - Other specified anxiety disorders Status: Acute Assessment and Plan: Continue patient's bupropion, buspirone. (6) Bipolar 1 disorder: Code(s): F31.9 - Bipolar disorder, unspecified Status: Acute Assessment and Plan: Continue patient's Depakote. (7) HTN (hypertension): Qualifiers: Hypertension type: unspecified Qu
[2020-11-22 15:18] LABS: Hematocrit 31.1 % (37.0-47.0); Hemoglobin 9.9 g/dL (12.0-15.0)
[2020-11-22] MEDS: FERROUS SULFATE 324 MG TABLET PO (17:08)
[2020-11-22] MEDS: METOPROLOL SUCCINATE EXT REL 12.5 MG TABCR PO (17:11)
[2020-11-22 18:19] LABS: Glucose Point of Care 122 (65-105)
[2020-11-22] MEDS: SIMVASTATIN 20 MG TABLET 40 MG PO (21:42)
[2020-11-22] MEDS: DIVALPROEX SODIUM ER 500 MG TAB.24H PO (21:42)
[2020-11-22] MEDS: MELATONIN 5 MG TABLET PO (21:43)
[2020-11-22] MEDS: DOCUSATE SODIUM 100 MG CAPSULE PO (21:43)
[2020-11-22 22:13] LABS: Glucose Point of Care 115 (65-105)
[2020-11-23] VITALS (8 sets, daily range): BP systolic 114–136; BP diastolic 58–62; PULSE 69–78; RESP 16; TEMP 36.4–36.9; O2SAT 96–99
[2020-11-23 05:40] LABS: Hematocrit 31.9 % (37.0-47.0); Hemoglobin 10.1 g/dL (12.0-15.0); Mean Corpuscular HGB Conc 31.7 g/dl (32-36); Mean Corpuscular Hemoglobin 28.9 pg (26-34); Mean Corpuscular Volume 91.1 fl (80-100); Mean Platelet Volume 9.6 fl (7.4-10.4); Platelet Count Result 226 k/mm3 (150-375); Red Cell Distribution Width 16.2 % (11.5-14.5); White Blood Count 5.2 K/mm3 (4.5-10.0)
[2020-11-23] MEDS: LEVOTHYROXINE SODIUM 112 MCG TABLET PO (05:44)
[2020-11-23] MEDS: hydrOXYzine HCL 25 MG TABLET PO (05:48)
[2020-11-23 05:53] LABS: Potassium 3.5 mmol/L (3.4-5.0)
[2020-11-23 06:01] LABS: Anion Gap 7 mmol/L (8-16); Blood Urea Nitrogen 33 mg/dL (7-17); Calcium 7.6 mg/dL (8.4-10.2); Carbon Dioxide 35 mmol/L (22-30); Chloride 97 mmol/L (98-107); Estimated CRCL calculation 35 ml/min; Estimated Glomerular Filt Rate 37; Glucose 101 mg/dL (65-105); Magnesium 1.7 mg/dL (1.6-2.3); Sodium 139 mmol/L (137-145)
[2020-11-23] MEDS: hydrALAZINE 5 MG TABLET PO ×3 (08:30→17:32)
[2020-11-23] MEDS: FERROUS SULFATE 324 MG TABLET PO ×2 (08:30→17:31)
[2020-11-23] MEDS: buPROPion HCL XL (24 HR) 150 MG TABCR 300 MG PO (08:30)
[2020-11-23] MEDS: DOCUSATE SODIUM 100 MG CAPSULE PO (08:30)
[2020-11-23] MEDS: lisinopriL 10 MG TABLET PO (08:31)
[2020-11-23] MEDS: busPIRone HCL 5 MG TABLET 15 MG PO ×3 (08:31→17:31)
[2020-11-23] MEDS: CYANOCOBALAMIN 1,000 MCG TABLET 1000 MCG PO (08:31)
[2020-11-23] MEDS: ASPIRIN 81 MG ENTERIC TABLET PO (08:31)
[2020-11-23] MEDS: PANTOPRAZOLE 40 MG TABLET PO (08:33)
[2020-11-23] MEDS: EUCERIN CREAM 120 GM JAR 1 APPLIC TOPICAL ×2 (08:34→17:33)
[2020-11-23] MEDS: APIXABAN 5 MG TABLET PO (09:50)
[2020-11-23 10:06] LABS: Glucose Point of Care 97 (65-105)
[2020-11-23 11:26] LABS: Glucose Point of Care 94 (65-105)
[2020-11-23] MEDS: TOLNAFTATE 1% POWDER 45 GM BTL 1 APPLIC TOPICAL (12:08)
[2020-11-23 13:57] LABS: IFOB Positive Control Positive; Immunochemical Fecal Occult Bl Negative (N)
--- NOTE | 2020-11-23 15:21 | PM.DS ---
DS: Admitting Diagnosis Admitting Diagnosis Admitting Diagnosis: Leg swelling DS: Discharge Diagnosis Discharge Diagnosis (1) Acute diastolic CHF (congestive heart failure): Code(s): I50.31 - Acute diastolic (congestive) heart failure Status: Acute Assessment and Plan: Patient is a 70 year old woman with a history of DM, chronic venous stasis dermatitis, HTN, HLD, presents with worsening leg swelling as well also abdominal distension. Patient has a prior echo from March 2020 which shows diastolic dysfunction grade III, within normal EF. Patient reports she has been taking her Lasix 40 mg daily as prescribed. Patient's BNP on arrival was 1190. Chest x-ray shows No acute cardiopulmonary disease. CT abd shows normal appearing liver without ascites. Normal LFTs. Bilateral venous Dopplers were negative for DVT. Patient was admitted into the hospital and started on IV Lasix 40 mg b.i.d. Echocardiogram was repeated showed Left ventricular chamber dimension is normal. Left ventricular systolic function is hyperdynamic, estimated at >70%. There is severe asymmetric septal increased left ventricular wall thickness. The left ventricular diastolic function is grade I diastolic dysfunction. Left atrial chamber dimension is mildly enlarged. There is mild mitral valve regurgitation. There is mild tricuspid valve regurgitation. Mild pulmonary hypertension, estimated pulmonary arterial systolic pressure is 39 mmHg. Tele shows NSR rate 90 with no acute arrhythmia. Continue Lisinopril, Aspirin, started her on a Beta Janeth which she was not on to help with CHF, Metoprolol Succinate 12.5 mg daily in the evening. She diuresed well without any issues or concerns. Putting patient back on Home Lasix, educated about CHF, weights daily, limit fluids and salt. She has been started on IV antibiotics for possible cellulitis of her bilateral lower extremities. Patient reports chronic redness to her legs, without much change now. Erythema to the legs appear to be due to chronic venous stasis changes, with no improved with IV antibiotic. Patient had normal white count and differentials. IV antibiotics were discontinued. Patient was stable for discharge home to continue taking medications as prescribed. Follow-up with her primary care provider. Recommended to see cardiology for further evaluation and monitoring of her CHF. Patient understands and agrees the plan all questions answered. (2) Cellulitis: Code(s): L03.90 - Cellulitis, unspecified Status: Acute Assessment and Plan: Chronic venous stasis changes. No cellulitis. (3) Urinary incontinence: Code(s): R32 - Unspecified urinary incontinence Status: Acute Assessment and Plan: Patient reports having urinary incontinence issues. Vo catheter was placed during diuresis, removed and tolerated voiding trial without any issues. Will need to follow-up with urologist as an outpatient. (4) Constipation: Code(s): K59.00 - Constipation, unspecified Status: Acute Assessment and Plan: Resolved. (5) Depression with anxiety: Code(s): F41.8 - Other specified anxiety disorders Status: Acute Assessment and Plan: Continue patient's bupropion, buspirone. (6) Bipolar 1 disorder: Code(s): F31.9 - Bipolar disorder, unspecified Status: Acute Assessment and Plan: Continue patient's Depakote. (7) HTN (hypertension): Qualifiers: Hypertension type: unspecified Qualified Code(s): I10 - Essential (primary) hypertension Code(s): I10 - Essential (primary) hypertension Status: Chronic Assessment and Plan
[2020-11-23] MEDS: METOPROLOL SUCCINATE EXT REL 12.5 MG TABCR PO (17:32)
[2020-11-23 18:00] LABS: Glucose Point of Care 78 (65-105)
--- NOTE | 2020-11-23 19:59 | PC.NURSE ---
reviewed in detail with pt and spouse diet information and CHF teaching, instructed pt about sodium restrictions and amount of water to consume daily, printed info on CHF and reviewed several times, medications reviewed and explained multiple times
== END 2020-11-23 19:59 | disposition home health service (06) | DRG 291 ==
LOC: ANHED 23:41 → ANH2MED 11-21 04:22
PROVIDERS: Admitting Provider Internal Medicine; Emergency Provider Family Medicine; PCP Physician Assistant; Visit Provider Physician Assistant
DX: I11.0 Hypertensive heart disease with heart failure (principal); I50.31 Acute diastolic (congestive) heart failure; M48.50XA Collapsed vertebra, not elsewhere classified, site unspecified, initial encounter for fracture; E11.42 Type 2 diabetes mellitus with diabetic polyneuropathy; I87.2 Venous insufficiency (chronic) (peripheral); N39.490 Overflow incontinence; R93.5 Abnormal findings on diagnostic imaging of other abdominal regions, including retroperitoneum; D50.9 Iron deficiency anemia, unspecified; D51.9 Vitamin B12 deficiency anemia, unspecified; K59.00 Constipation, unspecified; F31.9 Bipolar disorder, unspecified; F41.8 Other specified anxiety disorders; K21.9 Gastro-esophageal reflux disease without esophagitis; E78.5 Hyperlipidemia, unspecified; E03.9 Hypothyroidism, unspecified; Z96.641 Presence of right artificial hip joint; Z79.01 Long term (current) use of anticoagulants; Z86.718 Personal history of other venous thrombosis and embolism; Z86.73 Personal history of transient ischemic attack (TIA), and cerebral infarction without residual deficits; Z98.84 Bariatric surgery status
CPT/HCPCS: 36415; 71045; 74177; 76856; 80048; 80053; 81001; 82274; 82607; 82728; 82746; 82948; 83036; 83540; 83550; 83735; 83880; 84466; 85014; 85018; 85025; 85027; 85610; 93005; 93306; 93970; 96365; 96366; 96375; 96376; 97110; 97116; 97161; 97165; 97530; 97535; 99285; A9270; G0378; J1940; J2543; Q9967

== ENCOUNTER 2020-12-18 13:25 | Emergency (ER) | payer OTHER, SELFPAY ==
--- NOTE | ~2020-12-18 | XR_ITS ---
EXAMINATION: XR chest 1V portable DATE: 12/18/2020 16:21 INDICATION: Congestive heart failure. Lower limb edema. TECHNIQUE: A single frontal view of the chest was obtained. COMPARISON: Chest single view 11/20/2020, CT abdomen and pelvis 11/20/2020 FINDINGS: There is no pneumonia, pleural effusion, or pneumothorax. Cardiomegaly is noted. IMPRESSION: 1. Cardiomegaly. Reviewed, dictated and finalized at location A. IMPRESSION: 1. Cardiomegaly.
[2020-12-18 13:36] VITALS: BP 99/69; PULSE 78; RESP 18; TEMP 36.6; O2SAT 98
[2020-12-18 15:10] VITALS: BP 149/80; PULSE 71; RESP 22; TEMP 37.4; O2SAT 98
[2020-12-18 16:02] VITALS: BP 143/79; PULSE 68; RESP 17
--- NOTE | 2020-12-18 16:07 | ECG_ITS ---
Measurements Intervals [place] Rate: 65 P: 11 ND: 178 QRS: -33 QRSD: 86 T: 12 QT: 404 QTc: 421 Interpretive Statements SINUS RHYTHM LEFT AXIS DEVIATION BORDERLINE R WAVE PROGRESSION, ANTERIOR LEADS BORDERLINE T WAVE ABNORMALITY- INFERIOR LEADS BASELINE ARTIFACT- I, III, AVR, AVL, AVF BORDERLINE ECG Electronically Signed On 12-18-2020 21:10:03 CDT by Kenji Lassiter D.O.
--- NOTE | 2020-12-18 16:15 | ED.EXTPRO ---
HPI - Extremity Problem General Chief complaint: Extremity Problem,Nontraumatic Stated complaint: weeping legs Time Seen by Provider: 12/18/20 16:06 Source: patient and family Mode of arrival: ambulatory Limitations: no limitations History of Present Illness HPI Narrative: Patient 70 years old white female presents with edema lower extremity for the last few days, weeping fluid. History of intermittent leg edema for years. Patient denies chest pain, shortness of breath, fever, chills, nausea, vomiting or any other symptoms. Patient did not get vaccinated for COVID-19. When I went see the patient in the room her oxygenation on room air 100%, blood pressure 143/79, patient looks comfortable and asymptomatic. Related Data Home Medications Medication Instructions Recorded Confirmed buspirone 15 mg PO TID 07/16/19 11/21/20 furosemide 40 mg PO DAILY 07/16/19 11/21/20 hydroxyzine HCl 25 mg PO Q8H PRN 07/16/19 11/21/20 levothyroxine 112 mcg PO DAILY 07/28/19 11/21/20 bupropion HCl 300 mg PO QAM 03/29/20 11/21/20 lisinopril 10 mg PO DAILY 03/29/20 11/21/20 pantoprazole 40 mg PO DAILY 03/29/20 11/21/20 divalproex [Depakote ER] 500 mg PO HS 11/21/20 11/21/20 melatonin 5 mg PO HS 11/21/20 11/21/20 Allergies Allergy/AdvReac Type Severity Reaction Status Date / Time No Known Allergies Allergy Verified 03/29/20 11:21 Review of Systems Review of Systems: Narrative: CONSTITUTIONAL: Denies fever, chills, or sweats. EYES: Denies visual changes, redness, or discharge. ENT: Denies rhinorrhea, congestion, sore throat, or otalgia. CARDIOVASCULAR: Denies chest pain, palpitations, or edema. RESPIRATORY: Denies cough or dyspnea. GASTROINTESTINAL: Denies abdominal pain, nausea, vomiting, or diarrhea. GENITOURINARY: Denies dysuria or hematuria. SKIN: Leg edema bilaterally MUSCULOSKELETAL: Denies back pain, joint pain, or myalgia. NEUROLOGIC: Denies headache, numbness, or weakness. PSYCHIATRIC: Denies anxiety or depression. [facility] Past Medical History Medical History Anxiety Bipolar 1 disorder Bowel obstruction Chronic venous stasis dermatitis of both lower extremities Depression Diabetes A1c 5.15 july 2019 DVT (deep venous thrombosis) Esophageal ulcer Foot drop GERD (gastroesophageal reflux disease) Heart attack HTN (hypertension) Hyperlipidemia Hypothyroid Osteoarthritis of right hip Peripheral neuropathy Pneumonia Post-menopausal Renal failure TIA (transient ischemic attack) Surgical History Surgical History H/O tooth extraction History of section History of cholecystectomy History of gastric bypass History of right hip hemiarthroplasty July 2019 Family History Family History Mother Congestive heart failure Heart disease Thyroid disease Father Malignant neoplasm of prostate Diabetes mellitus Cerebrovascular accident Cancer Hypertension Other No problems noted. Daughter Thyroid disease Unknown No problems noted. Social History Social History Social History: Patient lives with her . She does have 1 daughter who lives nearby with whom she interacts and 1 other daughter that she does not see often. She is a full code. She does not have a designated POA but does ask about her as well as eldest daughter, Jon Padilla be her contacts. She is a never smoker. No alcohol use. Smoking status: Never smoker Alcohol intake: never Substance use: never Substance use type: does not use Gender identity (if verbalized by the patient): Female Spiritual care concerns: No Agree to blood products: Yes Exam Narrative: Exam Narrative: General appearance: Well-developed, well-nourished Skin: 2+ edema lower leg up to the knees bilaterally,
--- NOTE | 2020-12-18 17:13 | PC.NURSE ---
called for [facility] to draw blood -
--- NOTE | 2020-12-18 17:13 | PC.NURSE ---
Unable to draw labs after multiple attempts. Phlebotomy contacted for blood drawn.
[2020-12-18 17:44] VITALS: BP 148/85; PULSE 71; RESP 18; O2SAT 95
--- NOTE | 2020-12-18 18:15 | PC.NURSE ---
Phlebotomy contacted again for blood draw. States they are on their way.
[2020-12-18 19:03] LABS: Basophils Percent Auto 0.8 % (0.2-1.2); Eosinophils Absolute Auto 0.3 K/mm3 (0-0.3); Eosinophils Percent Auto 4.7 % (0-4.4); Hematocrit 38.2 % (37.0-47.0); Hemoglobin 11.8 g/dL (12.0-15.0); Immature Granulocyte Absolute 0.01 K/mm3 (0.00-0.031); Immature Granulocyte Percent A 0.2 % (0-0.5); Lymphocytes Absolute Auto 0.77 K/mm3 (0.9-3.2); Lymphocytes Percent Auto 14.5 % (18.3-44.2); Mean Corpuscular HGB Conc 30.9 g/dl (32-36); Mean Corpuscular Volume 93.9 fl (80-100); Mean Platelet Volume 9.7 fl (7.4-10.4); Monocytes Absolute Auto 0.4 K/mm3 (0.1-0.6); Monocytes Percent Auto 6.8 % (2.6-8.5); Neutrophils Absolute Auto 3.9 K/mm3 (1.3-6.7); Platelet Count Result 200 k/mm3 (150-375); Red Blood Count 4.07 M/mm3 (4.2-5.4); Red Cell Distribution Width 15.9 % (11.5-14.5); White Blood Count 5.3 K/mm3 (4.5-10.0)
[2020-12-18 19:14] LABS: Alanine Aminotransferase 15 U/L (4-35); Albumin Level 4.3 g/dL (3.5-5.1); Alkaline Phosphatase 117 U/L (38-126); Anion Gap 15 mmol/L (8-16); Aspartate Amino Transferase 19 U/L (14-36); Bilirubin,Total 0.4 mg/dL (0.2-1.3); Blood Urea Nitrogen 26 mg/dL (7-17); Calcium 8.5 mg/dL (8.4-10.2); Carbon Dioxide 18 mmol/L (22-30); Chloride 111 mmol/L (98-107); Estimated CRCL calculation 25 ml/min; Estimated Glomerular Filt Rate 32; Glucose 82 mg/dL (65-105); Sodium 144 mmol/L (137-145)
[2020-12-18 19:17] LABS: INR 1.2; Prothrombin Time 15.6 Seconds (11.1-14.7)
[2020-12-18 19:18] LABS: Partial Thromboplastin Time 33.2 SECONDS (22.3-36.8)
[2020-12-18 19:26] LABS: NT Pro B Type Natriuretic Pept 441 pg/mL (5-100); Troponin I < 0.012 ng/mL (0.000-0.034)
[2020-12-18 19:31] LABS: Add Urine Microscopic? YES; Appearance Urine Clear (Clear); Bilirubin Urine Negative (Negative); Blood Urine Negative (Negative); Color Urine Yellow (Yellow); Glucose Urine UA Negative (Negative); Ketones Urine Negative (Negative); Leukocyte Esterase Ur 1+ LEU/UL (Negative); Mucus Urine Rare /lpf; Nitrate Urine Negative (Negative); Protein Urine 1+ mg/dL (Negative); RBC Urine 0-2 /hpf (0-2); Specific Grav Ur 1.014 (1.001-1.035); Squamous Epithelial Cell Urine Occasional /hpf (Few); Transitional Epi Cells Urine Rare /hpf (None Seen); Urobilinogen Urine Negative mg/dL (<2.0)
[2020-12-18 20:25] VITALS: BP 136/72; PULSE 71; RESP 20; TEMP 36.9; O2SAT 96
== END 2020-12-18 20:30 | disposition home or self-care (01) ==
PROVIDERS: Emergency Provider Emergency Medicine; PCP Physician Assistant
DX: R60.0 Localized edema (principal); F41.9 Anxiety disorder, unspecified; F31.9 Bipolar disorder, unspecified; I87.2 Venous insufficiency (chronic) (peripheral); Z86.718 Personal history of other venous thrombosis and embolism; K21.9 Gastro-esophageal reflux disease without esophagitis; I25.2 Old myocardial infarction; E78.5 Hyperlipidemia, unspecified; E03.9 Hypothyroidism, unspecified; M16.11 Unilateral primary osteoarthritis, right hip; G62.9 Polyneuropathy, unspecified; N19 Unspecified kidney failure; Z98.84 Bariatric surgery status; Z96.641 Presence of right artificial hip joint; I51.7 Cardiomegaly; R94.31 Abnormal electrocardiogram [ECG] [EKG]
CPT/HCPCS: 36415; 71045; 80053; 81001; 83880; 84484; 85025; 85610; 85730; 87086; 87088; 93005; 99284

== ENCOUNTER 2021-01-16 17:21 | Emergency (ER) | payer OTHER, SELFPAY ==
--- NOTE | ~2021-01-16 | XR_ITS ---
EXAMINATION: XR chest 1V portable 01/16/2021 23:56 INDICATION: Leg edema PROCEDURE: AP portable chest COMPARISON: Comparison to multiple prior studies sequentially, with oldest reviewed study dated 08/12. FINDINGS: The lungs are clear. The cardiomediastinal silhouette is within normal limits. There are no pleural effusions. There is no pneumothorax suspected. There are multiple healed right rib fract ures. IMPRESSION: 1: NO ACUTE CARDIOPULMONARY DISEASE. Reviewed, dictated and finalized at location A.
[2021-01-16 18:17] VITALS: BP 121/99; PULSE 69; RESP 18; TEMP 36.8; O2SAT 98
--- NOTE | 2021-01-17 00:02 | ED.EXTPRO ---
HPI - Extremity Problem General Chief complaint: Extremity Problem,Nontraumatic <Chidi Mathias MD - Last Filed: 01/17/21 02:30> Stated complaint: legs leaking <Chidi Mathias MD - Last Filed: 01/17/21 02:30> Time Seen by Provider: 01/16/21 23:22 <Chidi Mathias MD - Last Filed: 01/17/21 02:30> Source: patient and family <Chidi Mathias MD - Last Filed: 01/17/21 02:30> Limitations: no limitations <Chidi Mathias MD - Last Filed: 01/17/21 02:30> History of Present Illness HPI Narrative: Patient is 70 years old white female presents with chronic edema of the lower extremity, been on diuretics, got worse in the last 3 weeks, was seen by her family physician who increased her diuretics, without significant results. Patient denies any fever, chills, nausea, vomiting, shortness of breath, chest pain. Patient been fully vaccinated for COVID-19. <Chidi Mathias MD - Last Filed: 01/17/21 02:30> Related Data Home medications: Home Medications Medication Instructions Recorded Confirmed buspirone 15 mg PO TID 07/16/19 11/21/20 furosemide 40 mg PO DAILY 07/16/19 11/21/20 hydroxyzine HCl 25 mg PO Q8H PRN 07/16/19 11/21/20 levothyroxine 112 mcg PO DAILY 07/28/19 11/21/20 bupropion HCl 300 mg PO QAM 03/29/20 11/21/20 lisinopril 10 mg PO DAILY 03/29/20 11/21/20 pantoprazole 40 mg PO DAILY 03/29/20 11/21/20 divalproex [Depakote ER] 500 mg PO HS 11/21/20 11/21/20 melatonin 5 mg PO 11/21/20 11/21/20 <Chidi Mathias MD - Last Filed: 01/17/21 02:30> Allergies/Adverse reactions: Allergies Allergy/AdvReac Type Severity Reaction Status Date / Time No Known Allergies Allergy Verified 03/29/20 11:21 <Chidi Mathias MD - Last Filed: 01/17/21 02:30> Review of Systems Review of Systems: Narrative: CONSTITUTIONAL: Denies fever, chills, or sweats. EYES: Denies visual changes, redness, or discharge. ENT: Denies rhinorrhea, congestion, sore throat, or otalgia. CARDIOVASCULAR: Denies chest pain, palpitations, or edema. RESPIRATORY: Denies cough or dyspnea. GASTROINTESTINAL: Denies abdominal pain, nausea, vomiting, or diarrhea. GENITOURINARY: Denies dysuria or hematuria. SKIN: Denies rash or itching. MUSCULOSKELETAL: Denies back pain, joint pain, or myalgia. NEUROLOGIC: Denies headache, numbness, or weakness. PSYCHIATRIC: Denies anxiety or depression. <Chidi Mathias MD - Last Filed: 01/17/21 02:30> [facility] Past Medical History Medical History: Medical History Anxiety Bipolar 1 disorder Bowel obstruction Chronic venous stasis dermatitis of both lower extremities Depression Diabetes A1c 5.15 july 2019 DVT (deep venous thrombosis) Esophageal ulcer Foot drop GERD (gastroesophageal reflux disease) Heart attack HTN (hypertension) Hyperlipidemia Hypothyroid Osteoarthritis of right hip Peripheral neuropathy Pneumonia Post-menopausal Renal failure TIA (transient ischemic attack) <Chidi Mathias MD - Last Filed: 01/17/21 02:30> Surgical History Surgical History: Surgical History H/O tooth extraction History of section History of cholecystectomy History of gastric bypass History of right hip hemiarthroplasty July 2019 <Chidi Mathias MD - Last Filed: 01/17/21 02:30> Family History Family History: Family History Mother Congestive heart failure Heart disease Thyroid disease Father Malignant neoplasm of prostate Diabetes mellitus Cerebrovascular accident Cancer Hypertension Other No problems noted. Daughter Thyroid disease Unknown No problems noted. <Chidi Mathias MD - Last Filed: 01/17/21 02:30> Social History Social History: Social History Social History: Patient lives with her . She does have
[2021-01-17 01:31] VITALS: BP 143/76; PULSE 77; RESP 18; O2SAT 92
[2021-01-17 01:36] LABS: Basophils Absolute Auto 0.1 K/mm3 (0.0-0.1); Basophils Percent Auto 0.7 % (0.2-1.2); Eosinophils Absolute Auto 0.2 K/mm3 (0-0.3); Hematocrit 36.9 % (37.0-47.0); Hemoglobin 11.9 g/dL (12.0-15.0); Immature Granulocyte Absolute 0.03 K/mm3 (0.00-0.031); Immature Granulocyte Percent A 0.4 % (0-0.5); Lymphocytes Absolute Auto 0.89 K/mm3 (0.9-3.2); Lymphocytes Percent Auto 13.3 % (18.3-44.2); Mean Corpuscular HGB Conc 32.2 g/dl (32-36); Mean Corpuscular Hemoglobin 29.2 pg (26-34); Mean Corpuscular Volume 90.4 fl (80-100); Mean Platelet Volume 9.9 fl (7.4-10.4); Monocytes Absolute Auto 0.7 K/mm3 (0.1-0.6); Monocytes Percent Auto 10.9 % (2.6-8.5); Neutrophils Absolute Auto 4.8 K/mm3 (1.3-6.7); Neutrophils Percent Auto 71.7 % (45.5-73.1); Platelet Count Result 239 k/mm3 (150-375); Red Blood Count 4.08 M/mm3 (4.2-5.4); Red Cell Distribution Width 15.2 % (11.5-14.5); White Blood Count 6.7 K/mm3 (4.5-10.0)
[2021-01-17 03:34] LABS: Troponin I < 0.012 ng/mL (0.000-0.034)
[2021-01-17 04:32] VITALS: BP 139/78; PULSE 81; RESP 20; O2SAT 97
[2021-01-17 10:05] LABS: Anion Gap 12 mmol/L (8-16); Carbon Dioxide 18 mmol/L (22-30); Chloride 109 mmol/L (98-107); Potassium 3.9 mmol/L (3.4-5.0); Sodium 139 mmol/L (137-145)
[2021-01-17 10:06] LABS: Aspartate Amino Transferase 30 U/L (14-36); Bilirubin,Total 0.7 mg/dL (0.2-1.3); Blood Urea Nitrogen 42 mg/dL (7-17); Calcium 6.7 mg/dL (8.4-10.2); Estimated CRCL calculation 28 ml/min; Estimated Glomerular Filt Rate 37; Glucose 126 mg/dL (65-105)
[2021-01-17 10:07] LABS: Alanine Aminotransferase 13 U/L (4-35); Albumin Level 3.8 g/dL (3.5-5.1); Alkaline Phosphatase 87 U/L (38-126); NT Pro B Type Natriuretic Pept 528 pg/mL (5-100); Total Protein 6.6 g/dL (6.3-8.2)
== END 2021-01-17 04:36 | disposition home or self-care (01) ==
PROVIDERS: Emergency Medicine; Emergency Provider Emergency Medicine; PCP Physician Assistant
DX: I87.2 Venous insufficiency (chronic) (peripheral) (principal); E11.9 Type 2 diabetes mellitus without complications; I10 Essential (primary) hypertension; E78.5 Hyperlipidemia, unspecified; E03.9 Hypothyroidism, unspecified; I25.2 Old myocardial infarction; K21.9 Gastro-esophageal reflux disease without esophagitis; M16.0 Bilateral primary osteoarthritis of hip; F41.9 Anxiety disorder, unspecified; F31.9 Bipolar disorder, unspecified; N19 Unspecified kidney failure; Z87.01 Personal history of pneumonia (recurrent); Z86.718 Personal history of other venous thrombosis and embolism; Z98.84 Bariatric surgery status; Z96.641 Presence of right artificial hip joint; Z79.01 Long term (current) use of anticoagulants; Z79.82 Long term (current) use of aspirin
CPT/HCPCS: 36415; 71045; 80053; 83880; 84484; 85025; 99284

== ENCOUNTER 2021-03-21 14:11 | Observation (INO) | payer OTHER, SELFPAY ==
--- NOTE | ~2021-03-21 | XR_ITS ---
EXAMINATION: XR chest 1V portable EXAM DATE: 03/21/2021 16:56 INDICATION: pain, history of hypertension, CHF, diabetes. TECHNIQUE: Portable AP frontal chest x-ray was obtained. Comparison is made to prior examination from 01/16/2021. FINDINGS: Mild cardiomegaly. Multiple old right rib fractures. No confluent consolidation, pneumothor ax or pleural effusion suspected. IMPRESSION: Cardiomegaly. Reviewed, dictated and finalized at location A. IMPRESSION: Cardiomegaly.
--- NOTE | ~2021-03-21 | US_ITS ---
EXAMINATION: US venous doppler [facility] DATE: 03/22/2021 08:12 INDICATION: Lower limb edema. TECHNIQUE: Grayscale ultrasound images without and with compression and Doppler ultrasound images of the bilateral lower extremity veins were obtained. COMPARISON: Ultrasound 11/21/2020 FINDINGS: The visualized portions of right common femoral vein, profunda (deep) femoral vein, femoral vein, pop liteal vein, posterior tibial veins, and greater saphenous vein outflow are patent. Bandages obscure a portion of the right lower limb. The visualized portions of left common femoral vein, profunda femoral vein, femoral vein, popliteal v ein, peroneal veins, posterior tibial veins, and greater saphenous vein outflow are patent. IMPRESSION: 1. No deep venous thrombosis. Reviewed, dictated and finalized at location A.
[2021-03-21 14:49] VITALS: BP 186/103; PULSE 109; RESP 18; TEMP 36.2; O2SAT 97
[2021-03-21 18:38] LABS: Basophils Percent Auto 0.5 % (0.2-1.2); Eosinophils Absolute Auto 0.2 K/mm3 (0-0.3); Eosinophils Percent Auto 3.2 % (0-4.4); Hemoglobin 9.7 g/dL (12.0-15.0); Immature Granulocyte Absolute 0.03 K/mm3 (0.00-0.031); Immature Granulocyte Percent A 0.5 % (0-0.5); Lymphocytes Absolute Auto 0.69 K/mm3 (0.9-3.2); Lymphocytes Percent Auto 10.5 % (18.3-44.2); Mean Corpuscular HGB Conc 30.3 g/dl (32-36); Mean Corpuscular Hemoglobin 28.8 pg (26-34); Mean Platelet Volume 8.8 fl (7.4-10.4); Monocytes Absolute Auto 0.6 K/mm3 (0.1-0.6); Monocytes Percent Auto 8.8 % (2.6-8.5); Neutrophils Absolute Auto 5.1 K/mm3 (1.3-6.7); Neutrophils Percent Auto 76.5 % (45.5-73.1); Platelet Count Result 299 k/mm3 (150-375); Red Blood Count 3.37 M/mm3 (4.2-5.4); Red Cell Distribution Width 14.5 % (11.5-14.5); White Blood Count 6.6 K/mm3 (4.5-10.0)
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
[2021-03-21 18:47] LABS: Add Urine Microscopic? YES; Appearance Urine Clear (Clear); Bilirubin Urine Negative (Negative); Blood Urine Negative (Negative); Color Urine Yellow (Yellow); Glucose Urine UA Negative (Negative); Ketones Urine Negative (Negative); Leukocyte Esterase Ur Negative LEU/UL (Negative); Nitrate Urine Negative (Negative); Protein Urine 3+ mg/dL (Negative); Specific Grav Ur 1.019 (1.001-1.035); Squamous Epithelial Cell Urine Rare /hpf (Few); WBC Urine 0-3 /hpf
[2021-03-21 18:48] LABS: Lactic Acid Reflex 0.6 mmol/L (0.7-2.1)
[2021-03-21 18:50] LABS: Alanine Aminotransferase 12 U/L (4-35); Albumin Level 3.6 g/dL (3.5-5.1); Alkaline Phosphatase 128 U/L (38-126); Anion Gap 6 mmol/L (8-16); Aspartate Amino Transferase 19 U/L (14-36); Bilirubin,Total 0.4 mg/dL (0.2-1.3); Blood Urea Nitrogen 21 mg/dL (7-17); CRP 2.9 mg/dL (<1.0); Calcium 7.9 mg/dL (8.4-10.2); Carbon Dioxide 26 mmol/L (22-30); Chloride 106 mmol/L (98-107); Estimated CRCL calculation 37 ml/min; Estimated Glomerular Filt Rate 49; Glucose 95 mg/dL (65-110); Lipase 61 U/L (23-300); Sodium 138 mmol/L (137-145)
[2021-03-21 18:51] LABS: INR 1.2
[2021-03-21 18:52] LABS: Partial Thromboplastin Time 39.1 SECONDS (22.3-36.8)
--- NOTE | 2021-03-21 19:09 | PC.NURSE ---
This RN tried to contact pts cousin Bethanie. 2 different numbers in system so not sure which one it is. Also per Apurva Alexander ( deck worker) NO INFORMATION IS TO BE GIVEN TO : MYRNA BASS CASSANDRA ( AKElis ROMERO)
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
[2021-03-21] MEDS: FUROSEMIDE INJ 40 MG/4 ML VIAL IV PUSH (19:48)
[2021-03-21] MEDS: HYDROcodone/acetaminophen (*CRX) 5-325 MG TABLET 1 TAB PO (20:12)
[2021-03-21 21:41] VITALS: BP 187/84; PULSE 78; RESP 18; TEMP 36.2; O2SAT 98
--- NOTE | 2021-03-21 21:42 | PC.NURSE ---
Patient informed that she was ready to go to floor. Patient on bedpan at this time and she is to use call light when she is done so we can clean her and take her up to floor for admit.
--- NOTE | 2021-03-21 23:00 | ADMGEN ---
This patient, Sonya Johnson, was admitted to Medical Room 343-01. Patient/family oriented to hospital policies and general routines including ID bracelet, bed and alarms, visiting hours, pain management, procedures, bathroom and other care routines, personal items, smoking policy, room service/diet, and visiting hours. Information on how to activate the Rapid Response Team has been discussed. Patient/Family are encouraged to report perceived risks to care and to ask questions if they do not understand what they are told or what they should do.
[2021-03-21 23:15] VITALS: BP 185/82; PULSE 81; RESP 16; TEMP 35.9; O2SAT 95; BMI 27.1
[2021-03-21 23:17] LABS: Glucose Point of Care 106 mg/dl (65-105)
[2021-03-21] MEDS: POTASSIUM CHLORIDE 20 MEQ TABLET 40 MEQ PO (23:33)
[2021-03-22] VITALS (7 sets, daily range): BP systolic 123–151; BP diastolic 55–88; PULSE 71–87; RESP 18; TEMP 36.3–37.2; O2SAT 94–100
[2021-03-22] MEDS: ONDANSETRON INJ 4 MG/2 ML VIAL IV PUSH ×2 (01:44→21:06)
[2021-03-22] MEDS: ACETAMINOPHEN 325 MG TABLET 650 MG PO ×4 (01:44→20:55)
[2021-03-22] MEDS: MELATONIN 5 MG TABLET PO ×2 (01:44→20:55)
[2021-03-22 06:16] LABS: Basophils Percent Auto 0.6 % (0.2-1.2); Eosinophils Absolute Auto 0.2 K/mm3 (0-0.3); Eosinophils Percent Auto 3.8 % (0-4.4); Hematocrit 28.8 % (37.0-47.0); Hemoglobin 8.8 g/dL (12.0-15.0); Immature Granulocyte Absolute 0.02 K/mm3 (0.00-0.031); Immature Granulocyte Percent A 0.3 % (0-0.5); Lymphocytes Absolute Auto 0.57 K/mm3 (0.9-3.2); Mean Corpuscular HGB Conc 30.6 g/dl (32-36); Mean Corpuscular Hemoglobin 28.6 pg (26-34); Mean Corpuscular Volume 93.5 fl (80-100); Mean Platelet Volume 8.8 fl (7.4-10.4); Monocytes Absolute Auto 0.7 K/mm3 (0.1-0.6); Monocytes Percent Auto 10.6 % (2.6-8.5); Neutrophils Absolute Auto 4.8 K/mm3 (1.3-6.7); Neutrophils Percent Auto 75.7 % (45.5-73.1); Platelet Count Result 295 k/mm3 (150-375); Red Blood Count 3.08 M/mm3 (4.2-5.4); Red Cell Distribution Width 14.4 % (11.5-14.5); White Blood Count 6.3 K/mm3 (4.5-10.0)
[2021-03-22 07:00] LABS: Alanine Aminotransferase 10 U/L (4-35); Alkaline Phosphatase 113 U/L (38-126); Anion Gap 6 mmol/L (8-16); Aspartate Amino Transferase 16 U/L (14-36); Bilirubin,Total 0.4 mg/dL (0.2-1.3); Blood Urea Nitrogen 18 mg/dL (7-17); Calcium 7.3 mg/dL (8.4-10.2); Carbon Dioxide 27 mmol/L (22-30); Chloride 106 mmol/L (98-107); Creatine Kinase 87 U/L (30-135); Estimated CRCL calculation 41 ml/min; Estimated Glomerular Filt Rate 55; Glucose 93 mg/dL (65-110); Magnesium 1.5 mg/dL (1.6-2.3); Potassium 3.2 mmol/L (3.4-5.0); Sodium 139 mmol/L (137-145)
[2021-03-22 08:48] LABS: Glucose Point of Care 97 mg/dl (65-105)
[2021-03-22] MEDS: POTASSIUM CHLORIDE 20 MEQ TABLET 40 MEQ PO (09:51)
[2021-03-22] MEDS: ENOXAPARIN 40 MG/0.4 ML SYRINGE SUB-Q (09:51)
[2021-03-22 11:52] LABS: Glucose Point of Care 126 mg/dl (65-105)
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
[2021-03-22 17:01] LABS: Glucose Point of Care 104 mg/dl (65-105)
[2021-03-22 21:11] LABS: Glucose Point of Care 97 mg/dl (65-105)
[2021-03-22] MEDS: hydrOXYzine HCL 25 MG TABLET PO (23:23)
[2021-03-22] MEDS: BENZOCAINE/MENTHOL (*BKC) 18 EA LOZENGE 1 LOZENGE PO (23:24)
[2021-03-23] MEDS: ACETAMINOPHEN 325 MG TABLET 650 MG PO ×3 (00:56→17:56)
[2021-03-23 05:10] VITALS: BP 160/82; PULSE 80; RESP 17; TEMP 36.8; O2SAT 97
[2021-03-23] MEDS: hydrOXYzine HCL 25 MG TABLET PO (06:21)
[2021-03-23 08:51] LABS: Glucose Point of Care 89 mg/dl (65-105)
[2021-03-23] MEDS: ENOXAPARIN 40 MG/0.4 ML SYRINGE SUB-Q (08:51)
[2021-03-23 11:22] LABS: Hematocrit 31.6 % (37.0-47.0); Hemoglobin 9.5 g/dL (12.0-15.0); Mean Corpuscular HGB Conc 30.1 g/dl (32-36); Mean Corpuscular Volume 93.2 fl (80-100); Mean Platelet Volume 8.9 fl (7.4-10.4); Platelet Count Result 363 k/mm3 (150-375); Red Blood Count 3.39 M/mm3 (4.2-5.4); Red Cell Distribution Width 14.4 % (11.5-14.5); White Blood Count 7.7 K/mm3 (4.5-10.0)
[2021-03-23 11:45] LABS: Anion Gap 6 mmol/L (8-16); Blood Urea Nitrogen 19 mg/dL (7-17); Calcium 7.8 mg/dL (8.4-10.2); Carbon Dioxide 28 mmol/L (22-30); Chloride 106 mmol/L (98-107); Estimated CRCL calculation 42 ml/min; Estimated Glomerular Filt Rate 49; Glucose 138 mg/dL (65-110); Sodium 140 mmol/L (137-145)
[2021-03-23 14:00] VITALS: BP 148/76; PULSE 88; RESP 16; TEMP 36.1; O2SAT 94
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
[2021-03-23 17:16] LABS: EDCOVIDSCREEN Negative (Negative)
== END 2021-03-23 19:35 ==
LOC: ANHED 19:45 → ANH3MED 03-22 01:22
PROVIDERS: Emergency Medicine Emergency Medical Services; Nurse Practitioner Adult Health; Physician Assistant; Admitting Provider Hospitalist; Emergency Provider Family Medicine; Visit Provider Internal Medicine Nephrology
DX: R53.81 Other malaise (principal); Z59.1 Inadequate housing; S81.801D Unspecified open wound, right lower leg, subsequent encounter; R60.9 Edema, unspecified; E87.6 Hypokalemia; E03.9 Hypothyroidism, unspecified; I13.0 Hypertensive heart and chronic kidney disease with heart failure and stage 1 through stage 4 chronic kidney disease, or unspecified chronic kidney disease; E11.22 Type 2 diabetes mellitus with diabetic chronic kidney disease; N18.30 Chronic kidney disease, stage 3 unspecified; I50.30 Unspecified diastolic (congestive) heart failure; D50.9 Iron deficiency anemia, unspecified; Z79.01 Long term (current) use of anticoagulants; Z86.718 Personal history of other venous thrombosis and embolism; W19.XXXD Unspecified fall, subsequent encounter
CPT/HCPCS: 36415; 51701; 71045; 80048; 80053; 81001; 82550; 82948; 83605; 83690; 83735; 84443; 85025; 85027; 85610; 85730; 86140; 87040; 87426; 93970; 96372; 96374; 96376; 97162; 97166; 99285; A9270; C9803; G0378; J1650; J1940; J2405

== ENCOUNTER 2021-03-28 20:42 | Inpatient (IN) | payer OTHER, SELFPAY ==
--- NOTE | ~2021-03-28 | XR_ITS ---
XR chest 2V DATE: 03/29/2021 18:16 INDICATION: Hypoxia TECHNIQUE: AP and lateral views COMPARISON: 03/21/2021 portable AP chest FINDINGS: Cardiomegaly. New pulmonary vascular congestion or pneumothorax. There is mild left basilar infiltrate or atelectasis, mild elevation of the left leaf of the diaphrag m. There is minimal if any left pleural effusion. Diffuse prominent osteopenia. There is scoliosis and degenerative change of the thoracic spine. Chron ic rotator cuff atrophy on the right. Old right rib fractures. IMPRESSION: Mild left basilar infiltrate or atelectasis Cardiomegaly Diffuse osteopenia Reviewed, dictated and finalized at location A.
[2021-03-28 20:50] VITALS: BP 144/101; PULSE 78; RESP 18; TEMP 36.2; O2SAT 93
[2021-03-29] VITALS (10 sets, daily range): BP systolic 102–126; BP diastolic 42–76; PULSE 70–86; RESP 16–18; TEMP 36.4–37.7; O2SAT 96–100; BMI 27.0
[2021-03-29] MEDS: MORPHINE SULFATE (*CRX) 4 MG/ML INJ 2 MG IV PUSH (00:18)
[2021-03-29] MEDS: ONDANSETRON INJ 4 MG/2 ML VIAL IV PUSH (00:19)
[2021-03-29 00:27] LABS: Basophils Absolute Auto 0.1 K/mm3 (0.0-0.1); Basophils Percent Auto 0.6 % (0.2-1.2); Eosinophils Absolute Auto 0.3 K/mm3 (0-0.3); Eosinophils Percent Auto 2.8 % (0-4.4); Hematocrit 33.1 % (37.0-47.0); Hemoglobin 10.2 g/dL (12.0-15.0); Immature Granulocyte Absolute 0.07 K/mm3 (0.00-0.031); Immature Granulocyte Percent A 0.6 % (0-0.5); Lymphocytes Percent Auto 7.4 % (18.3-44.2); Mean Corpuscular HGB Conc 30.8 g/dl (32-36); Mean Corpuscular Hemoglobin 28.8 pg (26-34); Mean Corpuscular Volume 93.5 fl (80-100); Mean Platelet Volume 8.7 fl (7.4-10.4); Monocytes Absolute Auto 1.1 K/mm3 (0.1-0.6); Monocytes Percent Auto 8.8 % (2.6-8.5); Neutrophils Absolute Auto 9.8 K/mm3 (1.3-6.7); Neutrophils Percent Auto 79.8 % (45.5-73.1); Platelet Count Result 434 k/mm3 (150-375); Red Blood Count 3.54 M/mm3 (4.2-5.4); Red Cell Distribution Width 14.8 % (11.5-14.5); White Blood Count 12.2 K/mm3 (4.5-10.0)
[2021-03-29 00:40] LABS: Anion Gap 9 mmol/L (8-16); Blood Urea Nitrogen 38 mg/dL (7-17); Calcium 7.5 mg/dL (8.4-10.2); Carbon Dioxide 26 mmol/L (22-30); Chloride 106 mmol/L (98-107); Estimated CRCL calculation 29 ml/min; Estimated Glomerular Filt Rate 37; Glucose 93 mg/dL (65-110); Potassium 3.8 mmol/L (3.4-5.0); Sodium 141 mmol/L (137-145)
--- NOTE | 2021-03-29 01:17 | ED.WOUNDLAC ---
HPI - Wound/Laceration General Chief Complaint: Wound/Laceration Stated Complaint: RT LEG WOUND - BLACK IN COLOR PER EMS Time Seen by Provider: 03/28/21 23:05 Source: patient and family Mode of arrival: ambulatory Limitations: no limitations History of Present Illness HPI narrative: 70-year-old with a history of hypertension, diabetes, venous stasis, CHF here with complaints of wound infection to her right leg. Patient states that she had laceration to her leg approximately 3 weeks ago had multiple sutures and for the past few days been having significant drainage she also reports that she is having chills. No history of nausea or vomiting or chest pain. Onset (ago): day(s) (2) Extremity Location: Right: lower leg Related Data Home Medications Medication Instructions Recorded Confirmed buspirone 15 mg PO TID 07/16/19 03/21/21 furosemide 40 mg PO DAILY 07/16/19 03/21/21 hydroxyzine HCl 25 mg PO Q8H PRN 07/16/19 03/21/21 levothyroxine 112 mcg PO DAILY 07/28/19 03/21/21 bupropion HCl 300 mg PO QAM 03/29/20 03/21/21 lisinopril 10 mg PO DAILY 03/29/20 03/21/21 pantoprazole 40 mg PO DAILY 03/29/20 03/21/21 divalproex [Depakote ER] 500 mg PO HS 11/21/20 03/21/21 melatonin 5 mg PO HS 11/21/20 03/21/21 Allergies Allergy/AdvReac Type Severity Reaction Status Date / Time No Known Allergies Allergy Verified 03/29/21 01:13 Review of Systems Review of Systems: All systems reviewed & are unremarkable except as noted in HPI and below Constitutional: Constitutional: Reports chills Eyes: Eyes: Reports no additional eye complaints ENT: Reports system reviewed and no additional complaints, except as documented Cardiovascular: Cardiovascular: Reports no additional cardiovascular complaints Respiratory: Respiratory: Reports no additional respiratory complaints Gastrointestinal: Gastrointestinal: Reports no additional gastrointestinal complaints Musculoskeletal: Musculoskeletal: Reports as per HPI Integumentary/Breasts: Skin/Breast: Reports as per HPI Neurologic: Reports system reviewed and no additional complaints, except as documented Psychiatric: Psychiatric: Reports no additional psychiatric complaints PMFSH Past Medical History Medical History Anxiety Bipolar 1 disorder Bowel obstruction Chronic anticoagulation Treatment for DVT. Chronic kidney disease, stage 3 Creatinine ranges between 1.0 and 1.40. Chronic venous stasis dermatitis of both lower extremities Deep venous thrombosis (07/2019) Depression Diabetic peripheral neuropathy Diastolic congestive heart failure Echocardiogram on 11/21/2020 showed grade 1 diastolic dysfunction, hyperdynamic systolic function of the left ventricle with an estimated EF of greater than 70%, mild pulmonary hypertension, mild left atrial enlargement, and mild mitral and tricuspid valve regurgitation. Esophageal ulcer Foot drop Gastroesophageal reflux disease Heart attack Hyperlipidemia Hypertension Hypothyroidism Memory loss Osteoarthritis of right hip Pneumonia Post-menopausal Transient ischemic attack Type 2 diabetes mellitus Hemoglobin A1c was 5.3% on 11/21/2020. Vitamin B12 deficiency Surgical History Surgical History History of section History of cholecystectomy History of gastric bypass History of right hip hemiarthroplasty July 2019 History of tooth extraction Family History Family History Mother Congestive heart failure Heart disease Thyroid disease Father Malignant neoplasm of prostate Diabetes mellitus Cerebrovascular accident Cancer Hypertension Other No problems noted. Daughter Thyroid disease Unknown No problems noted. Social History Social History (Updated 03/21/21 @ 23:38 by Roxana Lewis RN) Social History: The patient lives with
--- NOTE | 2021-03-29 02:34 | PM.IMHP ---
H&P: HPI History of Present Illness Date/Time: 03/29/21 02:34 Chief Complaint: Wound Narrative: This is a 70-year-old female past medical history significant for congestive heart failure, GERD, foot drop. Patient was just recently discharged from [facility] after she was treated for congestive heart failure exacerbation at the time she was noted to have a right nagel wound which had been sutured. Today she presented due to the wound getting worse and excruciating pain. She denies any fevers, any rigors any chills. Wound has been noted to be discolored and sutures are still in place. Preliminary workup was essentially nonrevealing with some mild elevation of white count at 12,000. Decision has been made to admit the patient for further management and treatment. Review of Systems Review of Systems: Right nagel wound discoloration and pain. Constitutional: Constitutional: Denies chills, Denies fatigue, Denies fever(s) and Denies weakness Eyes: Eyes: Denies change in vision ENT: Denies dysphagia, Denies nasal congestion, Denies nasal discharge, Denies nasal obstruction and Denies odynophagia Cardiovascular: Cardiovascular: Denies claudication, Reports leg edema, Denies radiating jaw, neck or arm pain, Denies palpitations, Denies dyspnea on exertion and Denies orthopnea Respiratory: Respiratory: Denies cough Gastrointestinal: Gastrointestinal: Denies abdominal pain, Denies nausea and Denies vomiting Musculoskeletal: Musculoskeletal: Reports limited range of motion and Reports muscle weakness Comments: Foot drop Integumentary/Breasts: Skin/Breast: Reports skin ulcer (Right nagel) Neurologic: Reports system reviewed and no additional complaints, except as documented Psychiatric: Psychiatric: Reports no additional psychiatric complaints Endocrine: Endocrine: Reports no additional endocrine complaints Hematologic/Lymphatic: Hematologic/Lymphatic: Reports no additional hematologic/lymphatic complaints Allergic/Immunologic: Allergic/Immunologic: Reports no additional allergic/immunologic complaints [facility] Past Medical History Medical History (Updated 03/29/21 @ 03:44 by Gissel Duke MD) Anxiety Bipolar 1 disorder Bowel obstruction Chronic anticoagulation Treatment for DVT. Chronic kidney disease, stage 3 Creatinine ranges between 1.0 and 1.40. Chronic venous stasis dermatitis of both lower extremities Deep venous thrombosis (07/2019) Depression Diabetic peripheral neuropathy Diastolic congestive heart failure Echocardiogram on 11/21/2020 showed grade 1 diastolic dysfunction, hyperdynamic systolic function of the left ventricle with an estimated EF of greater than 70%, mild pulmonary hypertension, mild left atrial enlargement, and mild mitral and tricuspid valve regurgitation. Esophageal ulcer Foot drop Gastroesophageal reflux disease Heart attack Hyperlipidemia Hypertension Hypothyroidism Memory loss Osteoarthritis of right hip Pneumonia Post-menopausal Transient ischemic attack Type 2 diabetes mellitus Hemoglobin A1c was 5.3% on 11/21/2020. Vitamin B12 deficiency Surgical History Surgical History History of section History of cholecystectomy History of gastric bypass History of right hip hemiarthroplasty July 2019 History of tooth extraction Family History Family History Mother Congestive heart failure Heart disease Thyroid disease Father Malignant neoplasm of prostate Diabetes mellitus Cerebrovascular accident Cancer Hypertension Other No problems noted. Daughter Thyroid disease Unknown No problems noted. Social History Social History (Updated 03/21/21 @ 23:38 by Roxana Lewis RN) Social History: The patient lives with her in [place]. She has 2 daughters. Nonsmoker. No alcohol or illicit substance use. She designate
[2021-03-29] MEDS: SODIUM CHLORIDE 0.9% IV 1,000 ML 50 ML IV CONT (03:29)
--- NOTE | 2021-03-29 03:33 | ADMGEN ---
This patient, Sonya Johnson, was admitted to Medical Room 244-. Patient/family oriented to hospital policies and general routines including ID bracelet, bed and alarms, visiting hours, pain management, procedures, bathroom and other care routines, personal items, smoking policy, room service/diet, and visiting hours. Information on how to activate the Rapid Response Team has been discussed. Patient/Family are encouraged to report perceived risks to care and to ask questions if they do not understand what they are told or what they should do.
[2021-03-29 03:49] LABS: Glucose Point of Care 63 mg/dl (65-105)
[2021-03-29] MEDS: ACETAMINOPHEN 325 MG TABLET 650 MG PO ×3 (03:50→16:50)
[2021-03-29 05:59] LABS: Estimated CRCL calculation 29 ml/min; Estimated Glomerular Filt Rate 37
[2021-03-29 06:44] LABS: Glucose Point of Care 96 mg/dl (65-105)
[2021-03-29] MEDS: LEVOTHYROXINE SODIUM 112 MCG TABLET PO (06:51)
[2021-03-29] MEDS: APIXABAN 5 MG TABLET PO (08:27)
[2021-03-29] MEDS: buPROPion HCL XL (24 HR) 150 MG TABCR 300 MG PO (08:27)
[2021-03-29] MEDS: FERROUS SULFATE 324 MG TABLET PO ×2 (08:27→16:50)
[2021-03-29] MEDS: ASPIRIN 81 MG ENTERIC TABLET PO (08:27)
[2021-03-29] MEDS: hydrALAZINE 5 MG TABLET PO ×2 (08:27→11:51)
[2021-03-29] MEDS: lisinopriL 10 MG TABLET PO (08:27)
[2021-03-29] MEDS: FUROSEMIDE 40 MG TABLET PO (08:27)
[2021-03-29] MEDS: busPIRone HCL 5 MG TABLET 15 MG PO ×3 (08:27→16:50)
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
[2021-03-29 11:56] LABS: Glucose Point of Care 89 mg/dl (65-105)
--- NOTE | 2021-03-29 15:09 | PM.IMPN ---
Progress Note: A&P Assessment and Plan (1) Infected wound: Code(s): T14.8XXA - Other injury of unspecified body region, initial encounter; L08.9 - Local infection of the skin and subcutaneous tissue, unspecified Status: Acute Assessment and Plan: Patient has an infected wound on the lateral aspect of her right leg. She said she obtained this from a fall earlier this month -white blood cell count slightly elevated 12.2 and patient has had a low-grade fever. continue vancomycin and cefepime -Sx consulted and is scheduling debridement -Continue local wound care -Await cultures (2) Diastolic congestive heart failure: Code(s): I50.30 - Unspecified diastolic (congestive) heart failure Status: Acute Assessment and Plan: Appears to be euvolemic -Continue lasix, lisinopril and metoprolol (3) Chronic kidney disease, stage 3: Code(s): N18.30 - Chronic kidney disease, stage 3 unspecified Status: Acute Assessment and Plan: BUN and creatinine at patient's baseline (4) Type 2 diabetes mellitus: Code(s): E11.9 - Type 2 diabetes mellitus without complications Status: Acute Assessment and Plan: Last glucose 89 -on no home medications for this and appears to be diet controlled (5) Gastroesophageal reflux disease: Code(s): K21.9 - Gastro-esophageal reflux disease without esophagitis Status: Inactive Assessment and Plan: Continue protonix (6) Acute respiratory failure with hypoxia: Code(s): J96.01 - Acute respiratory failure with hypoxia Status: Acute Assessment and Plan: Patient appeared to be hypoxic earlier today and was placed on oxygen - will obtain chest x-ray - wean oxygen as tolerated, currently 98% - PE appears less likely as the patient is on Eliquis (7) Dysuria: Code(s): R30.0 - Dysuria Status: Acute Assessment and Plan: Patient was noted to have dysuria in the ER. Today, she urinated and it had a very foul odor - will obtain UA - patient is on cefazolin and vancomycin at this time. May consider more gram-negative coverage depending on the UA (8) Hypertension: Code(s): I10 - Essential (primary) hypertension Status: Acute Assessment and Plan: last blood pressure 107/70 - continue metoprolol, Lasix and lisinopril. Parameter set Time Spent With Patient Time with patient: 25 - 35 minutes Subjective Date/time seen: 03/29/21 15:09 Interval history: Pt is a 70-year-old female here for leg wound. Patient was seen today and states she feels a little better than yesterday. She says she does have some pain but overall doing okay. She said she thought she had been keeping up with her wound in his surprised by how infected it is. She has no numbness or tingling to the leg. She says she felt short of breath earlier in the RN states her oxygen was 85%. She does not usually wear oxygen at home. she denies a cough, chest pain, abdominal pain, or leg swelling. She takes Eliquis at home for a history of blood clots. Review of Systems Review of Systems: All systems reviewed & are unremarkable except as noted in HPI and below Exam Narrative: General: Well developed well nourished patient in NAD HEENT: normocephalic, oxygen applied Neck: supple Neuro: Alert and oriented x4. cranial nerves 2-12 intact CV:RRR Resp: clear to auscultation, no wheezing or rhonchi. Oxygen applied Abd: Soft, non distended. No pain to palpation. Positive bowel sounds Extremities: right leg with skin tear with necrotic skin flap. There are some sutures on the superior/lateral aspects of the wound. Please see wound care notes for specific details. pulses and sensation intact Objective Data Vital Signs Vital Signs: Vital Signs - 24 hr 03/28/21 20:50 03/29/21 00:23 03/29/21 04:00 Temperature 97.2 F L 97.5 F L Pulse Rate 78 71 70 Respiratory Rat
[2021-03-29 16:46] LABS: Add Urine Microscopic? YES; Appearance Urine Clear (Clear); Bacteria Urine Trace /hpf; Bilirubin Urine Negative (Negative); Blood Urine Negative (Negative); Color Urine Straw (Yellow); Glucose Urine UA Negative (Negative); Ketones Urine Negative (Negative); Leukocyte Esterase Ur 1+ LEU/UL (Negative); Mucus Urine Rare /lpf; Nitrate Urine Negative (Negative); Protein Urine Negative (Negative); RBC Urine 0-2 /hpf (0-2); Specific Grav Ur 1.012 (1.001-1.035); Squamous Epithelial Cell Urine Few /hpf (Few); Urobilinogen Urine Negative mg/dL (<2.0); WBC Urine 31-50 /hpf
[2021-03-29 17:01] LABS: Glucose Point of Care 95 mg/dl (65-105)
[2021-03-29] MEDS: SIMVASTATIN 20 MG TABLET 40 MG PO (20:20)
[2021-03-29] MEDS: PANTOPRAZOLE 40 MG TABLET PO (20:20)
[2021-03-29] MEDS: MELATONIN 5 MG TABLET PO (20:20)
[2021-03-29] MEDS: METOPROLOL SUCCINATE EXT REL 12.5 MG TABCR PO (20:20)
[2021-03-29] MEDS: DIVALPROEX SODIUM ER 500 MG TAB.24H PO (20:21)
[2021-03-29] MEDS: hydrOXYzine HCL 25 MG TABLET PO (20:24)
[2021-03-29 20:54] LABS: Glucose Point of Care 135 mg/dl (65-105)
[2021-03-30] VITALS (21 sets, daily range): BP systolic 102–181; BP diastolic 61–98; PULSE 65–80; RESP 12–18; TEMP 36.7–37.4; O2SAT 91–100
[2021-03-30] MEDS: SODIUM CHLORIDE 0.9% IV 1,000 ML 50 ML IV CONT (05:08)
[2021-03-30] MEDS: LEVOTHYROXINE SODIUM 112 MCG TABLET PO (05:40)
[2021-03-30 05:51] LABS: Alanine Aminotransferase 7 U/L (4-35); Albumin Level 2.8 g/dL (3.5-5.1); Alkaline Phosphatase 81 U/L (38-126); Anion Gap 7 mmol/L (8-16); Aspartate Amino Transferase 14 U/L (14-36); Bilirubin,Total < 0.1 mg/dL (0.2-1.3); Blood Urea Nitrogen 32 mg/dL (7-17); Calcium 6.7 mg/dL (8.4-10.2); Carbon Dioxide 24 mmol/L (22-30); Chloride 108 mmol/L (98-107); Estimated CRCL calculation 35 ml/min; Estimated Glomerular Filt Rate 41; Glucose 95 mg/dL (65-110); Potassium 3.5 mmol/L (3.4-5.0); Sodium 139 mmol/L (137-145)
[2021-03-30 05:53] LABS: Basophils Percent Auto 0.4 % (0.2-1.2); Eosinophils Absolute Auto 0.3 K/mm3 (0-0.3); Eosinophils Percent Auto 4.1 % (0-4.4); Hematocrit 25.3 % (37.0-47.0); Hemoglobin 7.9 g/dL (12.0-15.0); Immature Granulocyte Absolute 0.03 K/mm3 (0.00-0.031); Immature Granulocyte Percent A 0.4 % (0-0.5); Lymphocytes Absolute Auto 0.71 K/mm3 (0.9-3.2); Lymphocytes Percent Auto 9.3 % (18.3-44.2); Mean Corpuscular HGB Conc 31.2 g/dl (32-36); Mean Corpuscular Hemoglobin 29.4 pg (26-34); Mean Corpuscular Volume 94.1 fl (80-100); Monocytes Absolute Auto 0.7 K/mm3 (0.1-0.6); Monocytes Percent Auto 9.5 % (2.6-8.5); Neutrophils Absolute Auto 5.8 K/mm3 (1.3-6.7); Neutrophils Percent Auto 76.3 % (45.5-73.1); Platelet Count Result 357 k/mm3 (150-375); Red Blood Count 2.69 M/mm3 (4.2-5.4); Red Cell Distribution Width 15.2 % (11.5-14.5); White Blood Count 7.7 K/mm3 (4.5-10.0)
[2021-03-30] MEDS: FERROUS SULFATE 324 MG TABLET PO ×2 (10:10→17:37)
[2021-03-30] MEDS: buPROPion HCL XL (24 HR) 150 MG TABCR 300 MG PO (10:10)
[2021-03-30] MEDS: busPIRone HCL 5 MG TABLET 15 MG PO ×2 (10:11→17:38)
[2021-03-30] MEDS: lisinopriL 10 MG TABLET PO (10:11)
[2021-03-30] MEDS: FUROSEMIDE 40 MG TABLET PO (10:11)
[2021-03-30 11:03] LABS: Glucose Point of Care 96 mg/dl (65-105)
--- NOTE | 2021-03-30 11:18 | PM.IMPN ---
Progress Note: A&P Assessment and Plan (1) Infected wound: Code(s): T14.8XXA - Other injury of unspecified body region, initial encounter; L08.9 - Local infection of the skin and subcutaneous tissue, unspecified Status: Acute Assessment and Plan: Patient has an infected wound on the lateral aspect of her right leg. She said she obtained this from a fall earlier this month -plan to go to the OR later today -white blood cell count improving, now normal. Continue vancomycin and cefepime -Continue local wound care -blood cultures with no growth today (2) Diastolic congestive heart failure: Code(s): I50.30 - Unspecified diastolic (congestive) heart failure Status: Acute Assessment and Plan: Appears to be euvolemic -Continue lasix, lisinopril and metoprolol (3) Chronic kidney disease, stage 3: Code(s): N18.30 - Chronic kidney disease, stage 3 unspecified Status: Acute Assessment and Plan: BUN and creatinine at patient's baseline (4) Type 2 diabetes mellitus: Code(s): E11.9 - Type 2 diabetes mellitus without complications Status: Acute Assessment and Plan: Last glucose 96 -on no home medications for this and appears to be diet controlled (5) Gastroesophageal reflux disease: Code(s): K21.9 - Gastro-esophageal reflux disease without esophagitis Status: Inactive Assessment and Plan: Continue protonix (6) Acute respiratory failure with hypoxia: Code(s): J96.01 - Acute respiratory failure with hypoxia Status: Acute Assessment and Plan: Resolved -chest x-ray without acute infection -PE less likely since this has resolved and patient on Eliquis -chest x-ray does show osteopenia, would recommend follow-up with primary care physician after acute illness to get this treated (7) Dysuria: Code(s): R30.0 - Dysuria Status: Acute Assessment and Plan: Patient was noted to have dysuria in the ER. Today, she urinated and it had a very foul odor -UA not overly indicating infection. Urine culture pending - patient is on cefazolin and vancomycin at this time. No plans for further antibiotics until urine culture is back (8) Hypertension: Code(s): I10 - Essential (primary) hypertension Status: Acute Assessment and Plan: last blood pressure 141/78 - continue metoprolol, Lasix and lisinopril. Parameters set Subjective Date/time seen: 03/30/21 11:18 Interval history: Pt is a 70-year-old female here for leg wound. Patient was seen today and is doing well. She still has some pain in her leg but overall doing okay. She is off oxygen and denies shortness of breath, dyspnea on exertion or shortness of breath with laying flat. She has not been able to eat or drink anything since midnight. No abdominal pain, chest pain, leg swelling, fevers or chills. Exam Narrative: General: Well developed well nourished patient in NAD HEENT: normocephalic Neck: supple Neuro: Alert and oriented x4. cranial nerves 2-12 intact CV:RRR Resp: clear to auscultation, no wheezing or rhonchi. Abd: Soft, non distended. No pain to palpation. Positive bowel sounds Extremities: right leg with skin tear with necrotic skin flap. There are some sutures on the superior/lateral aspects of the wound. Please see wound care notes for specific details. pulses and sensation intact Objective Data Vital Signs Vital Signs: Vital Signs - 24 hr 03/29/21 12:00 03/29/21 16:00 03/29/21 16:35 Temperature 99.8 F H 98.5 F Pulse Rate 79 80 Respiratory Rate 18 18 Blood Pressure 107/70 108/74 Pulse Oximetry 98 98 100 03/29/21 19:43 03/29/21 20:00 03/29/21 20:20 Temperature 98.3 F Pulse Rate 86 86 86 Respiratory Rate 17 17 Blood Pressure 106/58 L Pulse Oximetry 96 96 03/29/21 23:21 03/30/21 03:24 03/30/21 08:00 Temperature 98.1 F 98.1 F 98.2 F Pulse Rate 70
[2021-03-30 11:29] LABS: Glucose Point of Care 109 mg/dl (65-105)
--- NOTE | 2021-03-30 11:37 | PCPTNOTE ---
Attempted PT evaluation this date, going to surgery today for R LE wound will see after surgery for therapy.
--- NOTE | 2021-03-30 12:42 | WPDANESEPPF ---
Anes - Initial Pre Proc Eval Procedure: Operation Date: 03/30/21 15:00 Proposed Procedures p Debridement Right Lower Extremity Wound - Jack Guzman DO Date/Time: 03/30/21 12:42 Surgeon: Dejah Casper PA-C Pre Op Diagnosis: right leg wound infection Patient Data Age: 70 Gender: F Height: 1.63 m Weight: 71.4 kg Last Vital Signs Temp 36.8 C 03/30/21 08:00 Pulse 69 03/30/21 08:00 Resp 16 03/30/21 08:00 BP 141/78 H 03/30/21 08:00 Pulse Ox 99 03/30/21 10:24 Allergies Allergy/AdvReac Type Severity Reaction Status Date / Time No Known Allergies Allergy Verified 03/30/21 13:10 Home Medications Medication Instructions Recorded Confirmed Type buspirone 15 mg PO TID 07/16/19 03/29/21 History furosemide 40 mg PO DAILY 07/16/19 03/29/21 History hydroxyzine HCl 25 mg PO Q8H PRN 07/16/19 03/29/21 History levothyroxine 112 mcg PO DAILY 07/28/19 03/29/21 History Eliquis 5 mg PO Q12HR #60 tablet 08/09/19 03/29/21 Rx acetaminophen 1,000 mg PO Q6H PRN #30 tablet 08/09/19 03/29/21 Rx bupropion HCl 300 mg PO QAM 03/29/20 03/29/21 History lisinopril 10 mg PO DAILY 03/29/20 03/29/21 History pantoprazole 40 mg PO HS 03/29/20 03/29/21 History aspirin [Adult Low Dose Aspirin] 81 mg PO DAILY #30 tablet 04/03/20 03/29/21 Rx hydralazine 5 mg PO QID 30 Days #60 tablet 04/03/20 03/29/21 Rx simvastatin 40 mg PO HS #30 tablet 04/03/20 03/29/21 Rx divalproex [Depakote ER] 500 mg PO HS 11/21/20 03/29/21 History melatonin 5 mg PO HS 11/21/20 03/29/21 History ferrous sulfate 324 mg PO BIDWM #30 tablet 11/23/20 03/29/21 Rx metoprolol succinate 12.5 mg PO HS 30 Days #15 tablet 11/23/20 03/29/21 Rx Laboratory Tests 03/29/21 03/29/21 03/29/21 16:18 16:47 20:18 WBC RBC Hgb Hct MCV MCH MCHC RDW Plt Count MPV Immature Gran % (Auto) Neut % (Auto) Lymph % (Auto) [place] % (Auto) Eos % (Auto) Baso % (Auto) Lymph # (Auto) [place] # (Auto) Eos # (Auto) Baso # (Auto) Abs Immat Gran (auto) Absolute Neuts (auto) Absolute Nucleated RBC Nucleated RBC % Sodium Potassium Chloride Carbon Dioxide Anion Gap BUN Creatinine Estim Creat Clear Calc Estimated GFR Glucose POC Capillary Glucose 95 mg/dl mg/dl 135 mg/dl H mg/dl (65-105) (65-105) Calcium Total Bilirubin Direct Bilirubin AST ALT Alkaline Phosphatase Total Protein Albumin Urine Color Straw (Yellow) Urine Appearance Clear (Clear) Urine pH 6.0 (5.0-9.0) Ur Specific [place] 1.012 (1.001-1.035) Urine Protein Negative mg/dL mg/dL (Negative) Urine Glucose (UA) Negative mg/dL mg/dL (Negative) Urine Ketones Negative mg/dL mg/dL (Negative) Ur Blood (Man) Negative (Negative) Urine Nitrate Negative (Negative) Urine Bilirubin Negative (Negative) Urine Urobilinogen Negative mg/dL mg/dL (<2.0) Leukocyte Esterase Rfl 1+ SANJEEV/UL H SANJEEV/UL (Negative) Urine RBC 0-2 /hpf /hpf (0-2) Urine WBC 31-50 /hpf H /hpf Ur Squamous Epith Cells Few /hpf /hpf (Few) Urine Bacteria Trace /hpf /hpf Urine Mucus Rare /lpf /lpf 03/30/21 03/30/21 03/30/21 04:57 04:57 10:14 WBC 7.7 K/mm3 K/mm3 (4.5-10.0) RBC 2.69 M/mm3 L M/mm3 (4.2-5.4) Hgb 7.9 g/dL L g/dL (12.0-15.0) Hct 25.3 % L % (37.0-47.0) MCV 94.1 fl fl (80-100) MCH 29
--- NOTE | 2021-03-30 12:44 | PC.NURSE ---
To OR per [Staci ], IV saline locked
[2021-03-30] MEDS: LACTATED RINGERS 1,000 ML 30 ML IV CONT (13:19)
--- NOTE | 2021-03-30 13:30 | WPDHPUPDATE1 ---
History and Physical Update Update Date/Time: 03/30/21 13:30 History and Physical has been reviewed, including an updated exam of the patient. There are NO changes in the patient's condition. Risks, benefits, and alternatives have been discussed and questions answered. Patient agrees to proceed with procedure.
[2021-03-30] MEDS: BUPIVACAINE/EPINEPHRINE 0.25% 10 ML VIAL 20 ML INFILTRATE (14:20)
--- NOTE | 2021-03-30 14:41 | P.OP_ITS ---
Procedure Note - Detailed Date of Procedure 03/30/21 Pre-op Diagnosis right leg wound infection Post-op Diagnosis same Procedure Performed Sharp excisional debridement of right lower extremity wound measuring 6 cm x 6 cm including skin and subcutaneous fat Surgeon Jack Guzman, DO Anesthesia MAC and local (0.25% bupivacaine with epinephrine) Indications This is a 70-year-old woman who presented with an infected wound on her right lower extremity. She had a previous history of a fall and skin tear on her right lower extremity. This was suture repaired at an outside facility. She began developing necrotic skin on a skin flap that appeared to be devascularized and also was having some purulence drainage from deep to this area. Discussions were made with the patient about her treatment options and decision was made to proceed with debridement of the right lower extremity wound. Findings Sharp excisional debridement of the right lower extremity wound was performed. The debridement measured 6 cm x 6 cm and included skin and subcutaneous fat. D ebridement was carried out down to healthy appearing tissue. There were still some sutures remaining around the skin edge that had already been debrided due to the necrotic skin. The sutures were removed. There was still a small area of skin flap where there was some tunneling up underneath the skin, but all of this tissue appeared healthy deep to this. The skin flap appeared healthy and viable, therefore was left in place. No specimens were obtained for pathology. Description of Procedure Procedure as well as risks, benefits, and alternatives were discussed with the patient. Written consent was obtained and placed in chart prior to procedure. Patient was brought back to surgical suite. She was placed supine on operating table. Time-out was done to confirm patient and procedure. IV sedation was then administered by the Anesthesia Department. Her right leg was prepped and draped in sterile fashion using Betadine prep. 0.25% bupivacaine with epinephrine was infiltrated locally around the wound. Scissors were initially used to cut away the skin on the surface. The necrotic tissue deep to this then was also sharply debrided using scissors and a 15 blade scalpel. The necrotic skin and subcutaneous fat was sharply excised down to healthy appearing tissue. The wound was then irrigated with sterile saline. Betadine soaked Kerlix gauze was then packed within the wound followed by 4 x 4 gauze, ABD pad, and Kerlix wrap. The patient was then awakened from anesthesia, extubated, and transferred to recovery. Estimated Blood Loss 5 Packing Yes (2 in Betadine-soaked Kerlix gauze) Pathology none sent Complications No immediate complications Condition stable Disposition floor
[2021-03-30] MEDS: fentaNYL CITRATE INJ (*CRX) 100 MCG/2 ML VIAL 25 MCG IV PUSH ×8 (14:50→15:14)
[2021-03-30] MEDS: HYDROmorphone HCL INJ (*CRX) 1 MG/ML SYR 0.25 MG IV PUSH ×12 (15:22→16:19)
--- NOTE | 2021-03-30 15:23 | SUR.PHASEI ---
Called dr Corona and discussed pain. Orders received.
[2021-03-30 15:45] LABS: Glucose Point of Care 87 mg/dl (65-105)
[2021-03-30] MEDS: MIDAZOLAM HCL (*CRX) 10 MG/2 ML VIAL IV PUSH ×2 (16:05→16:15)
[2021-03-30] MEDS: ONDANSETRON INJ 4 MG/2 ML VIAL IV PUSH (18:44)
[2021-03-30] MEDS: APIXABAN 5 MG TABLET PO (20:35)
[2021-03-30] MEDS: MELATONIN 5 MG TABLET PO (20:35)
[2021-03-30] MEDS: DIVALPROEX SODIUM ER 500 MG TAB.24H PO (20:35)
[2021-03-30] MEDS: PANTOPRAZOLE 40 MG TABLET PO (20:36)
[2021-03-30] MEDS: METOPROLOL SUCCINATE EXT REL 12.5 MG TABCR PO (20:36)
[2021-03-30] MEDS: SIMVASTATIN 20 MG TABLET 40 MG PO (20:36)
[2021-03-30 20:59] LABS: Glucose Point of Care 88 mg/dl (65-105)
[2021-03-31] VITALS (7 sets, daily range): BP systolic 137–157; BP diastolic 68–80; PULSE 59–90; RESP 16–18; TEMP 36.4–37.1; O2SAT 93–97
[2021-03-31] MEDS: ACETAMINOPHEN 325 MG TABLET 650 MG PO ×4 (02:46→21:06)
[2021-03-31] MEDS: hydrOXYzine HCL 25 MG TABLET PO ×2 (02:50→21:06)
[2021-03-31] MEDS: LEVOTHYROXINE SODIUM 112 MCG TABLET PO (06:03)
[2021-03-31 06:17] LABS: Hematocrit 26.3 % (37.0-47.0); Hemoglobin 8.1 g/dL (12.0-15.0); Mean Corpuscular HGB Conc 30.8 g/dl (32-36); Mean Corpuscular Hemoglobin 28.9 pg (26-34); Mean Corpuscular Volume 93.9 fl (80-100); Platelet Count Result 332 k/mm3 (150-375); Red Cell Distribution Width 14.9 % (11.5-14.5); White Blood Count 9.4 K/mm3 (4.5-10.0)
[2021-03-31 06:34] LABS: Albumin Level 2.8 g/dL (3.5-5.1); Alkaline Phosphatase 94 U/L (38-126); Anion Gap 7 mmol/L (8-16); Aspartate Amino Transferase 17 U/L (14-36); Bilirubin,Total 0.2 mg/dL (0.2-1.3); Blood Urea Nitrogen 21 mg/dL (7-17); Calcium 7.1 mg/dL (8.4-10.2); Carbon Dioxide 27 mmol/L (22-30); Chloride 106 mmol/L (98-107); Estimated CRCL calculation 42 ml/min; Estimated Glomerular Filt Rate 49; Glucose 78 mg/dL (65-110); Potassium 3.5 mmol/L (3.4-5.0); Sodium 140 mmol/L (137-145)
[2021-03-31 06:53] LABS: Alanine Aminotransferase < 6 U/L (4-35)
[2021-03-31] MEDS: SODIUM CHLORIDE 0.9% IV 1,000 ML 50 ML IV CONT (07:22)
--- NOTE | 2021-03-31 07:29 | PM.IMPN ---
Progress Note: A&P Assessment and Plan (1) Infected wound: Code(s): T14.8XXA - Other injury of unspecified body region, initial encounter; L08.9 - Local infection of the skin and subcutaneous tissue, unspecified Status: Acute Assessment and Plan: Patient has an infected wound on the lateral aspect of her right leg. She said she obtained this from a fall earlier this month -white blood cell count improving, now normal. Continue vancomycin and cefepime -Continue local wound care -blood cultures negative thus far (2) Diastolic congestive heart failure: Code(s): I50.30 - Unspecified diastolic (congestive) heart failure Status: Acute Assessment and Plan: Appears to be euvolemic -Continue lasix, lisinopril and metoprolol (3) Chronic kidney disease, stage 3: Code(s): N18.30 - Chronic kidney disease, stage 3 unspecified Status: Acute Assessment and Plan: BUN and creatinine at patient's baseline (4) Type 2 diabetes mellitus: Code(s): E11.9 - Type 2 diabetes mellitus without complications Status: Acute Assessment and Plan: Last glucose 96 -on no home medications for this and appears to be diet controlled (5) Acute respiratory failure with hypoxia: Code(s): J96.01 - Acute respiratory failure with hypoxia Status: Acute Assessment and Plan: Resolved (6) Hypertension: Code(s): I10 - Essential (primary) hypertension Status: Acute Additional Plan 70yo lady with Diastolic CHF and chronic anemia presenting with infected sutured wound of right nagel. No sepsis or bacteremia. Vitals stable. Broad coverage with Vanc & Cefazolin. I&D yesterday with surgery. work with clear coordination to find appropriate rehab for [facility]. Currently patient still is nauseated, will continue with p.r.n.. Time Spent With Patient Time with patient: less than 15 minutes Subjective Date/time seen: 03/31/21 07:29 resting comfortably Ongoing nausea, this is been going for over a year with her Review of Systems Review of Systems: All systems reviewed & are unremarkable except as noted in HPI and below Exam Const: General: no acute distress Neck: Neck: no JVD Resp: Effort & Inspection: normal respiratory effort Auscultation: clear to auscultation bilaterally Cardio: Rate: regular rate Rhythm: regular rhythm GI: GI Palp: Yes Soft to palpation and No Tenderness to palpation present (GI) Objective Data Vital Signs Vital Signs: Vital Signs - 24 hr 03/30/21 08:00 03/30/21 10:24 03/30/21 12:00 Temperature 98.2 F 98.6 F Pulse Rate 69 70 Respiratory Rate 16 16 Blood Pressure 141/78 H 141/83 H Pulse Oximetry 98 99 97 03/30/21 13:11 03/30/21 14:35 03/30/21 14:57 Temperature 98.1 F 99.4 F Pulse Rate 66 65 74 Respiratory Rate 14 16 Blood Pressure 150/78 H 102/63 181/89 H Pulse Oximetry 98 99 93 03/30/21 15:10 03/30/21 15:25 03/30/21 15:40 Temperature Pulse Rate 79 76 76 Respiratory Rate 14 16 12 Blood Pressure 181/93 H 144/90 H 160/98 H Pulse Oximetry 91 96 96 03/30/21 15:55 03/30/21 16:10 03/30/21 16:25 Temperature Pulse Rate 71 69 66 Respiratory Rate 16 12 12 Blood Pressure 148/92 H 102/62 130/63 Pulse Oximetry 95 95 100 03/30/21 16:40 03/30/21 16:55 03/30/21 17:00 Temperature 98.4 F Pulse Rate 70 66 68 Respiratory Rate 16 14 16 Blood Pressure 133/71 135/61 142/69 H Pulse Oximetry 98 99 98 03/30/21 17:15 03/30/21 17:45 03/30/21 18:45 Temperature 98.4 F 98.6 F 98.5 F Pulse Rate 68 69 69 Respiratory Rate 16 16 16 Blood Pressure 138/68 132/64 132/66 Pulse Oximetry 98 99 98 03/30/21 20:00 03/30/21 20:36 03/31/21 00:00 Temperature 99.1 F 98.6 F Pulse Rate 70 80 75 Respiratory Rate 18 16 Blood Pressure 154/87 H 143/68 H Pulse Oximetry 98 94 03/31/21 04:00 Temperature 97.6 F Pulse Rate 59 L Respiratory Rate 18 Blood Pressure 146/74 H Pulse
[2021-03-31 07:59] LABS: Glucose Point of Care 73 mg/dl (65-105)
[2021-03-31] MEDS: ASPIRIN 81 MG ENTERIC TABLET PO (08:05)
[2021-03-31] MEDS: lisinopriL 10 MG TABLET PO (08:05)
[2021-03-31] MEDS: buPROPion HCL XL (24 HR) 150 MG TABCR 300 MG PO (08:05)
[2021-03-31] MEDS: FUROSEMIDE 40 MG TABLET PO (08:05)
[2021-03-31] MEDS: busPIRone HCL 5 MG TABLET 15 MG PO ×3 (08:05→16:51)
[2021-03-31] MEDS: FERROUS SULFATE 324 MG TABLET PO ×2 (08:05→16:50)
[2021-03-31] MEDS: APIXABAN 5 MG TABLET PO ×2 (08:05→21:03)
--- NOTE | 2021-03-31 09:00 | PCOTNOTE ---
Attempted to see patient at this time for skilled OT session. Patient appeared to be frustrated and discussed with GARCIA how she has not received her breakfast tray yet. Patient refused participation in therapy until she has received her tray and eaten breakfast. Will attempt to see patient for a second time if possible. Continue per POC.
--- NOTE | 2021-03-31 09:27 | PCPTNOTE ---
Patient refused to participate in physical therapy evaluation this morning. She states that she does not want to right now and her foot hurts too bad right.
--- NOTE | 2021-03-31 09:40 | PC.NURSE ---
pt did not receive a breakfast. I contacted dietary and they said they would send up a tray. Pt argued with the SCENIC ARTIST about what was on her tray especially what was lacking (sweet 'n low, milk, butter), and demanded to speak with the nurse ; upon being informed of the situation, I went to speak with pt where she immediately began arguing and making accusations stating that she did not like what was going on here , she is allowed to ask questions , she doesn't need everyone (she began listing people which included but was not limited to the food specialistfood service kitchen supervisor, the SCENIC ARTIST, me, transportation techs, care coordination, et al.) rolling their eyes at me, patients have the right to ask questions and know everything that is going on. I tried to explain the food specialist process, I tried to heat up her food and provide her with the condiments that she wanted; however, pt still insisted on arguing, complaining, and accusing any and everyone of mistreating her and prohibiting her from the information she feels entitled to; every time I attempted to solve her complaints or leave to heat up the food, she would start yelling at me again and make accusations again; after about 15 minutes of being berated by her, I just left the room with the food, heated it up and brought the hot food with the missing condiments back to her room where she immediately began berating me all over again including but not limited to accusations that the SCENIC ARTIST and I have mistreated her for weeks even though yesterday was the first time I had ever worked with or seen her and yesterday she was pleasant and we had positive interactions the entire shift.
[2021-03-31 11:53] LABS: Glucose Point of Care 86 mg/dl (65-105)
[2021-03-31 17:20] LABS: Glucose Point of Care 92 mg/dl (65-105)
[2021-03-31] MEDS: SIMVASTATIN 20 MG TABLET 40 MG PO (21:04)
[2021-03-31] MEDS: DIVALPROEX SODIUM ER 500 MG TAB.24H PO (21:05)
[2021-03-31] MEDS: MELATONIN 5 MG TABLET PO (21:05)
[2021-03-31] MEDS: PANTOPRAZOLE 40 MG TABLET PO (21:06)
[2021-03-31] MEDS: METOPROLOL SUCCINATE EXT REL 12.5 MG TABCR PO (21:06)
[2021-03-31 21:26] LABS: Glucose Point of Care 102 mg/dl (65-105)
[2021-03-31 21:48] LABS: Vancomycin Trough 9.5 ug/mL (10.0-20.0)
[2021-04-01] MEDS: ACETAMINOPHEN 325 MG TABLET 650 MG PO ×2 (03:02→09:19)
[2021-04-01] MEDS: SODIUM CHLORIDE 0.9% IV 1,000 ML 50 ML IV CONT ×2 (03:04→23:22)
[2021-04-01 05:19] LABS: Basophils Percent Auto 0.6 % (0.2-1.2); Eosinophils Absolute Auto 0.3 K/mm3 (0-0.3); Eosinophils Percent Auto 4.6 % (0-4.4); Hematocrit 28.5 % (37.0-47.0); Hemoglobin 8.7 g/dL (12.0-15.0); Immature Granulocyte Absolute 0.03 K/mm3 (0.00-0.031); Immature Granulocyte Percent A 0.5 % (0-0.5); Lymphocytes Absolute Auto 0.61 K/mm3 (0.9-3.2); Lymphocytes Percent Auto 9.6 % (18.3-44.2); Mean Corpuscular HGB Conc 30.5 g/dl (32-36); Mean Corpuscular Hemoglobin 29.2 pg (26-34); Mean Corpuscular Volume 95.6 fl (80-100); Monocytes Absolute Auto 0.7 K/mm3 (0.1-0.6); Monocytes Percent Auto 11.2 % (2.6-8.5); Neutrophils Absolute Auto 4.7 K/mm3 (1.3-6.7); Neutrophils Percent Auto 73.5 % (45.5-73.1); Platelet Count Result 318 k/mm3 (150-375); Red Blood Count 2.98 M/mm3 (4.2-5.4); White Blood Count 6.3 K/mm3 (4.5-10.0)
[2021-04-01 05:31] LABS: Albumin Level 2.8 g/dL (3.5-5.1); Alkaline Phosphatase 88 U/L (38-126); Anion Gap 7 mmol/L (8-16); Aspartate Amino Transferase 18 U/L (14-36); Bilirubin,Total 0.2 mg/dL (0.2-1.3); Blood Urea Nitrogen 20 mg/dL (7-17); Carbon Dioxide 26 mmol/L (22-30); Chloride 106 mmol/L (98-107); Estimated CRCL calculation 42 ml/min; Estimated Glomerular Filt Rate 49; Glucose 86 mg/dL (65-110); Magnesium 1.8 mg/dL (1.6-2.3); Potassium 3.4 mmol/L (3.4-5.0); Sodium 139 mmol/L (137-145)
[2021-04-01 05:33] LABS: Alanine Aminotransferase < 6 U/L (4-35)
[2021-04-01] MEDS: MORPHINE SULFATE (*CRX) 4 MG/ML INJ 2 MG IV PUSH (05:53)
[2021-04-01] MEDS: LEVOTHYROXINE SODIUM 112 MCG TABLET PO (05:54)
[2021-04-01] MEDS: ONDANSETRON INJ 4 MG/2 ML VIAL IV PUSH (05:55)
[2021-04-01 06:00] VITALS: BP 143/74; PULSE 69; RESP 18; TEMP 36.6; O2SAT 96
--- NOTE | 2021-04-01 07:37 | PM.IMPN ---
Progress Note: A&P Assessment and Plan (1) Infected wound: Code(s): T14.8XXA - Other injury of unspecified body region, initial encounter; L08.9 - Local infection of the skin and subcutaneous tissue, unspecified Status: Acute Assessment and Plan: Patient has an infected wound on the lateral aspect of her right leg. She said she obtained this from a fall earlier this month -white blood cell count improving, now normal. Continue vancomycin and cefepime -Continue local wound care -blood cultures negative thus far (2) Diastolic congestive heart failure: Code(s): I50.30 - Unspecified diastolic (congestive) heart failure Status: Acute Assessment and Plan: Appears to be euvolemic -Continue lasix, lisinopril and metoprolol (3) Chronic kidney disease, stage 3: Code(s): N18.30 - Chronic kidney disease, stage 3 unspecified Status: Acute Assessment and Plan: BUN and creatinine at patient's baseline (4) Type 2 diabetes mellitus: Code(s): E11.9 - Type 2 diabetes mellitus without complications Status: Acute Assessment and Plan: Last glucose 96 -on no home medications for this and appears to be diet controlled (5) Acute respiratory failure with hypoxia: Code(s): J96.01 - Acute respiratory failure with hypoxia Status: Acute Assessment and Plan: Resolved (6) Hypertension: Code(s): I10 - Essential (primary) hypertension Status: Acute Additional Plan wound healing well post-op, continue PT/OT, norco for pain control will need inpatient rehab following discharge, complex social situation - pt house has been condemned, Adult protective services involved From medical perspective, wound healing well, and on broad spectrum abx - no culture available to narrow, but based on some continued moderate pain, may be advisable to keep iv abx for one more day, switch to po tomorrow. Time Spent With Patient Time with patient: less than 15 minutes Subjective Date/time seen: 04/01/21 07:37 no acute complaints - continued mild RLE pain at post op site does have some baseline nausea - though tolerating diet Review of Systems Review of Systems: All systems reviewed & are unremarkable except as noted in HPI and below Exam Const: General: no acute distress Neck: Neck: no JVD Resp: Effort & Inspection: normal respiratory effort Auscultation: clear to auscultation bilaterally Cardio: Rate: regular rate Rhythm: regular rhythm GI: GI Palp: Yes Soft to palpation and No Tenderness to palpation present (GI) Neuro: Other: RLE pain - preserved motr and sensation in RLE no signs of neurovascular compromise on physical exam Objective Data Vital Signs Vital Signs: Vital Signs - 24 hr 03/31/21 07:58 03/31/21 12:00 03/31/21 16:00 Temperature 97.6 F 98.8 F 98.5 F Pulse Rate 59 L 66 66 Respiratory Rate 16 16 16 Blood Pressure 157/80 H 137/74 145/79 H Pulse Oximetry 97 95 93 03/31/21 21:06 03/31/21 22:00 04/01/21 06:00 Temperature 97.6 F 97.9 F Pulse Rate 90 70 69 Respiratory Rate 18 18 Blood Pressure 138/73 143/74 H Pulse Oximetry 97 96 Intake/Output Intake/Output: Intake & Output 03/29/21 03/30/21 03/31/21 04/01/21 23:59 23:59 23:59 23:59 Intake Total 1810 1420 2040 1520 Output Total 300 200 Balance 1510 1220 2040 1520 Meds/Results Medications: Active Medications Generic Name Dose Route Start Last Admin Trade Name Freq PRN Reason Stop Dose Admin Acetaminophen 650 mg 03/29/21 01:22 04/01/21 03:02 Acetaminophen 325 Mg Tablet PO 650 mg Q4H PRN Administration Mild Pain (1-3) or Fever Apixaban 5 mg 03/29/21 09:00 03/31/21 21:03 Apixaban 5 Mg Tablet PO 5 mg Q12HR DELMAR Administration Aspirin 81 mg 03/29/21 09:00 03/31/21 08:05 Aspirin 81 Mg Enteric Tablet PO 81 mg DAILY DELMAR Administration Bupropion HCl 300 mg 03/29/21 09:00 03/31/21 08:05
[2021-04-01 08:18] LABS: Glucose Point of Care 73 mg/dl (65-105)
[2021-04-01] MEDS: ASPIRIN 81 MG ENTERIC TABLET PO (08:20)
[2021-04-01] MEDS: buPROPion HCL XL (24 HR) 150 MG TABCR 300 MG PO (08:20)
[2021-04-01] MEDS: busPIRone HCL 5 MG TABLET 15 MG PO ×3 (08:20→17:07)
[2021-04-01] MEDS: lisinopriL 10 MG TABLET PO (08:20)
[2021-04-01] MEDS: FERROUS SULFATE 324 MG TABLET PO ×2 (08:20→17:07)
[2021-04-01] MEDS: SILVERGEL (ELTA) 45 ML 1 APPLIC TOPICAL (08:20)
[2021-04-01] MEDS: FUROSEMIDE 40 MG TABLET PO (08:21)
[2021-04-01] MEDS: APIXABAN 5 MG TABLET PO ×2 (08:21→20:45)
[2021-04-01 12:10] LABS: Glucose Point of Care 83 mg/dl (65-105)
[2021-04-01 14:00] VITALS: BP 120/88; PULSE 71; RESP 18; TEMP 36.8; O2SAT 95
[2021-04-01 17:01] LABS: Glucose Point of Care 87 mg/dl (65-105)
[2021-04-01] MEDS: HYDROcodone/acetaminophen (*CRX) 10-325 MG TABLET 1 TAB PO ×2 (17:09→21:33)
[2021-04-01] MEDS: SIMVASTATIN 20 MG TABLET 40 MG PO (20:44)
[2021-04-01 20:45] VITALS: PULSE 70
[2021-04-01] MEDS: PANTOPRAZOLE 40 MG TABLET PO (20:45)
[2021-04-01] MEDS: MELATONIN 5 MG TABLET PO (20:45)
[2021-04-01] MEDS: METOPROLOL SUCCINATE EXT REL 12.5 MG TABCR PO (20:45)
[2021-04-01] MEDS: DIVALPROEX SODIUM ER 500 MG TAB.24H PO (20:45)
[2021-04-01 21:00] LABS: Glucose Point of Care 92 mg/dl (65-105)
[2021-04-01 22:00] VITALS: BP 142/79; PULSE 69; RESP 16; TEMP 36.6; O2SAT 95
[2021-04-02] MEDS: HYDROcodone/acetaminophen (*CRX) 10-325 MG TABLET 1 TAB PO ×2 (02:13→09:36)
[2021-04-02 05:34] LABS: Basophils Percent Auto 0.7 % (0.2-1.2); Eosinophils Absolute Auto 0.3 K/mm3 (0-0.3); Eosinophils Percent Auto 5.2 % (0-4.4); Hematocrit 26.9 % (37.0-47.0); Hemoglobin 8.2 g/dL (12.0-15.0); Immature Granulocyte Absolute 0.03 K/mm3 (0.00-0.031); Immature Granulocyte Percent A 0.5 % (0-0.5); Lymphocytes Absolute Auto 0.62 K/mm3 (0.9-3.2); Lymphocytes Percent Auto 10.4 % (18.3-44.2); Mean Corpuscular HGB Conc 30.5 g/dl (32-36); Mean Corpuscular Hemoglobin 29.1 pg (26-34); Mean Corpuscular Volume 95.4 fl (80-100); Mean Platelet Volume 9.1 fl (7.4-10.4); Monocytes Absolute Auto 0.7 K/mm3 (0.1-0.6); Monocytes Percent Auto 11.6 % (2.6-8.5); Neutrophils Absolute Auto 4.3 K/mm3 (1.3-6.7); Neutrophils Percent Auto 71.6 % (45.5-73.1); Platelet Count Result 314 k/mm3 (150-375); Red Blood Count 2.82 M/mm3 (4.2-5.4); Red Cell Distribution Width 15.3 % (11.5-14.5)
[2021-04-02 05:43] LABS: Albumin Level 2.7 g/dL (3.5-5.1); Alkaline Phosphatase 86 U/L (38-126); Anion Gap 7 mmol/L (8-16); Aspartate Amino Transferase 13 U/L (14-36); Bilirubin,Total 0.2 mg/dL (0.2-1.3); Blood Urea Nitrogen 19 mg/dL (7-17); Calcium 6.9 mg/dL (8.4-10.2); Carbon Dioxide 26 mmol/L (22-30); Chloride 106 mmol/L (98-107); Estimated CRCL calculation 38 ml/min; Estimated Glomerular Filt Rate 45; Glucose 85 mg/dL (65-110); Magnesium 1.8 mg/dL (1.6-2.3); Potassium 3.3 mmol/L (3.4-5.0); Sodium 139 mmol/L (137-145)
[2021-04-02 06:00] VITALS: BP 154/82; PULSE 62; RESP 18; TEMP 36.8; O2SAT 95
[2021-04-02 07:14] LABS: Glucose Point of Care 87 mg/dl (65-105)
[2021-04-02] MEDS: LEVOTHYROXINE SODIUM 112 MCG TABLET PO (07:36)
[2021-04-02] MEDS: FERROUS SULFATE 324 MG TABLET PO ×2 (09:14→16:24)
[2021-04-02] MEDS: ASPIRIN 81 MG ENTERIC TABLET PO (09:15)
[2021-04-02] MEDS: APIXABAN 5 MG TABLET PO ×2 (09:16→21:10)
[2021-04-02] MEDS: TAMSULOSIN HCL 0.4 MG CAPSULE PO (09:16)
[2021-04-02] MEDS: busPIRone HCL 5 MG TABLET 15 MG PO ×3 (09:16→16:24)
[2021-04-02] MEDS: lisinopriL 10 MG TABLET PO (09:16)
[2021-04-02] MEDS: buPROPion HCL XL (24 HR) 150 MG TABCR 300 MG PO (09:16)
[2021-04-02] MEDS: FUROSEMIDE 40 MG TABLET PO (09:16)
[2021-04-02] MEDS: SILVERGEL (ELTA) 45 ML 1 APPLIC TOPICAL (09:17)
[2021-04-02] MEDS: POTASSIUM CHLORIDE 20 MEQ PACKET (FOR LIQUID) 40 MEQ PO (11:26)
[2021-04-02 11:58] LABS: Glucose Point of Care 118 mg/dl (65-105)
--- NOTE | 2021-04-02 12:00 | PM.PNGS ---
Progress Note: A&P Assessment and Plan (1) Infected wound: Code(s): T14.8XXA - Other injury of unspecified body region, initial encounter; L08.9 - Local infection of the skin and subcutaneous tissue, unspecified Status: Acute Assessment and Plan: Wound healing well. Okay to discharge back to SNF from a surgical standpoint and stop antibiotics. Continue local wound care with silver gel dressing changes daily. Follow-up only as needed. Additional Plan I have discussed the plan of care with Dr. Guzman. Subjective Subjective Date/Time Seen: 04/02/21 10:40 Post Op day: 3 (Excisional debridement of infected right lower extremity wound) Patient reports: tolerating a regular diet and afebrile Interval history: Patient seen and examined today. No new complaints. Still has some pain and tenderness at the RLE wound. Review of Systems Review of Systems: All systems reviewed & are unremarkable except as noted in HPI and below Exam Const: General: comfortable and no acute distress Orientation/consciousness: oriented to person and oriented to place Skin: Other: Anterior right lower leg dressing removed, wound appears to be healing well with some granulation tissue forming. No purulent drainage or significant necrotic tissue. No surrounding cellulitis. Dressing applied. Extrem: Right lower extremity: lower leg Details: no edema and other (wound described above); no erythema Psych: Insight: Fair insight present (Psych) Objective Data Vital Signs Vital Signs: Vital Signs - 24 hr 04/01/21 14:00 04/01/21 20:45 04/01/21 22:00 Temperature 98.2 F 97.8 F Pulse Rate 71 70 69 Respiratory Rate 18 16 Blood Pressure 120/88 142/79 H Pulse Oximetry 95 95 04/02/21 06:00 Temperature 98.2 F Pulse Rate 62 Respiratory Rate 18 Blood Pressure 154/82 H Pulse Oximetry 95 Intake/Output Intake/Output: Intake & Output 03/30/21 03/31/21 04/01/21 04/02/21 23:59 23:59 23:59 23:59 Intake Total 1420 2040 3170 960 Output Total 200 Balance 1220 2040 3170 960 Meds/Results Medications: Active Medications Generic Name Dose Route Start Last Admin Trade Name Freq PRN Reason Stop Dose Admin Hydrocodone Bitart/Acetaminophen 1 tab 04/01/21 14:21 04/02/21 09:36 Hydrocodone/Acetaminophen (*Crx) 10-325 Mg Tablet PO 1 tab Q4H PRN Administration Pain Rated 7-10 Apixaban 5 mg 03/29/21 09:00 04/02/21 09:16 Apixaban 5 Mg Tablet PO 5 mg Q12HR DELMAR Administration Aspirin 81 mg 03/29/21 09:00 04/02/21 09:15 Aspirin 81 Mg Enteric Tablet PO 81 mg DAILY DELMAR Administration Bupropion HCl 300 mg 03/29/21 09:00 04/02/21 09:16 Bupropion Hcl Xl (24 Hr) 150 Mg Tabcr PO 300 mg QAM DELMAR Administration Buspirone HCl 15 mg 03/29/21 09:00 04/02/21 09:16 Buspirone Hcl 5 Mg Tablet PO 15 mg TID DELMAR Administration Dextrose 12.5 gm 03/29/21 01:22 Dextrose 50% 25 Gm/50 Ml Syringe IV PUSH PRN PRN Hypoglycemia Protocol Divalproex Sodium 500 mg 03/29/21 21:00 04/01/21 20:45 Divalproex Sodium Er 500 Mg Tab.24h PO 500 mg HS DELMAR Administration Ferrous Sulfate 324 mg 03/29/21 08:00 04/02/21 09:14 Ferrous Sulfate 324 Mg Tablet PO 324 mg BIDWM DELMAR Administration Furosemide 40 mg 03/29/21 09:00 04/02/21 09:16 Furosemide 40 Mg Tablet PO 40 mg DAILY DELMAR Administration Hydroxyzine HCl 25 mg 03/29/21 05:20 03/31/21 21:06 Hydroxyzine Hcl 25 Mg Tablet PO 25 mg Q8H PRN Administration Itching Sodium Chloride 1,000 mls @ 50 mls/hr 03/29/21 01:25 04/01/21 23:22 Normal Saline Iv IV CONT 50 mls/hr .Q20H DELMAR Administration Cefazolin Sodium 1 gm in 50 mls @ 100 mls/hr 03/29/21 11:00 04/02/21 11:25 Ancef 1 Gm/D5w 50 Ml Pm IVPB 100 mls/hr Q12H DELMAR Administration Vancomycin HCl 1,000 mg in 250 mls @ 250 mls/hr 04/01/21 22:00 04/01/21 22:35 Vancomycin 1,000 Mg/D5w 250 Ml IVPB Infused Q24H DELMAR Infusion I
--- NOTE | 2021-04-02 12:23 | PM.IMPN ---
Progress Note: A&P Assessment and Plan (1) Infected wound: Code(s): T14.8XXA - Other injury of unspecified body region, initial encounter; L08.9 - Local infection of the skin and subcutaneous tissue, unspecified Status: Acute Assessment and Plan: Patient has an infected wound on the lateral aspect of her right leg. She said she obtained this from a fall earlier this month -status post excisional debridement 03/30/21. Postop day 3 and healing well. -white blood cell count improving, now normal. -she has been on cefazolin and vancomycin. I spoke to surgery who may be adjusting today -Continue local wound care -blood cultures negative thus far (2) Diastolic congestive heart failure: Code(s): I50.30 - Unspecified diastolic (congestive) heart failure Status: Acute Assessment and Plan: Appears to be euvolemic -Continue lasix, lisinopril and metoprolol (3) Chronic kidney disease, stage 3: Code(s): N18.30 - Chronic kidney disease, stage 3 unspecified Status: Acute Assessment and Plan: BUN and creatinine at patient's baseline (4) Type 2 diabetes mellitus: Code(s): E11.9 - Type 2 diabetes mellitus without complications Status: Acute Assessment and Plan: Last glucose 118 -on no home medications for this and appears to be diet controlled (5) Acute respiratory failure with hypoxia: Code(s): J96.01 - Acute respiratory failure with hypoxia Status: Acute Assessment and Plan: Resolved (6) Hypertension: Code(s): I10 - Essential (primary) hypertension Status: Acute Assessment and Plan: Last blood pressure 154/82 -will stop fluids -continue Lasix, lisinopril and metoprolol Additional Plan Likely discharge 04/03/21 Subjective Date/time seen: 04/02/21 12:23 Interval history: Pt is a 70-year-old female here for leg wound. Patient was seen today and is doing well but on the phone for most of our conversation. She still has some pain in her leg but overall doing okay. She has no complaints other than asking about her discharge deposition. She says she usually has some redness to her lower extremities when she sits a lot and she has been sitting in the chair quite a bit. She denies chest pain, shortness of breath, fevers, chills, nausea or vomiting. No diarrhea Exam Narrative: General: Well developed well nourished patient in NAD HEENT: normocephalic Neck: supple Neuro: Alert and oriented x4. cranial nerves 2-12 intact CV:RRR Resp: clear to auscultation, no wheezing or rhonchi. Abd: Soft, non distended. No pain to palpation. Positive bowel sounds Extremities: right leg wound that has been debrided with healthy tissue surrounding. No further Erythema to the area. Left leg with some discoloration but thought to be due to dependence. pulses and sensation intact Objective Data Vital Signs Vital Signs: Vital Signs - 24 hr 04/01/21 14:00 04/01/21 20:45 04/01/21 22:00 Temperature 98.2 F 97.8 F Pulse Rate 71 70 69 Respiratory Rate 18 16 Blood Pressure 120/88 142/79 H Pulse Oximetry 95 95 04/02/21 06:00 Temperature 98.2 F Pulse Rate 62 Respiratory Rate 18 Blood Pressure 154/82 H Pulse Oximetry 95 Intake/Output Intake/Output: Intake & Output 03/30/21 03/31/21 04/01/21 04/02/21 23:59 23:59 23:59 23:59 Intake Total 1420 2040 3170 960 Output Total 200 Balance 1220 2040 3170 960 Meds/Results Medications: Active Medications Generic Name Dose Route Start Last Admin Trade Name Freq PRN Reason Stop Dose Admin Hydrocodone Bitart/Acetaminophen 1 tab 04/01/21 14:21 04/02/21 09:36 Hydrocodone/Acetaminophen (*Crx) 10-325 Mg Tablet PO 1 tab Q4H PRN Administration Pain Rated 7-10 Apixaban 5 mg 03/29/21 09:00 04/02/21 09:16 Apixaban 5 Mg Tablet PO 5 mg Q12HR DELMAR Administration Aspirin 81 mg 03/29/21 09:00 04/02/21 09:15 Aspirin 81
[2021-04-02 13:10] LABS: Alanine Aminotransferase 6 U/L (4-35)
[2021-04-02 14:00] VITALS: BP 158/77; PULSE 67; RESP 18; TEMP 36.7; O2SAT 94
[2021-04-02 16:52] LABS: Glucose Point of Care 90 mg/dl (65-105)
[2021-04-02 20:44] LABS: Glucose Point of Care 84 mg/dl (65-105)
[2021-04-02] MEDS: SIMVASTATIN 20 MG TABLET 40 MG PO (21:08)
[2021-04-02 21:09] VITALS: PULSE 66
[2021-04-02] MEDS: METOPROLOL SUCCINATE EXT REL 12.5 MG TABCR PO (21:09)
[2021-04-02] MEDS: PANTOPRAZOLE 40 MG TABLET PO (21:09)
[2021-04-02] MEDS: MELATONIN 5 MG TABLET PO (21:09)
[2021-04-02] MEDS: DIVALPROEX SODIUM ER 500 MG TAB.24H PO (21:09)
[2021-04-02 22:00] VITALS: BP 133/92; PULSE 84; RESP 16; TEMP 36.2; O2SAT 94
[2021-04-03 05:55] LABS: Anion Gap 5 mmol/L (8-16); Blood Urea Nitrogen 20 mg/dL (7-17); Calcium 7.5 mg/dL (8.4-10.2); Carbon Dioxide 28 mmol/L (22-30); Chloride 105 mmol/L (98-107); Estimated CRCL calculation 42 ml/min; Estimated Glomerular Filt Rate 49; Glucose 88 mg/dL (65-110); Magnesium 1.9 mg/dL (1.6-2.3); Potassium 3.7 mmol/L (3.4-5.0); Sodium 138 mmol/L (137-145)
[2021-04-03 06:00] VITALS: BP 170/84; PULSE 80; RESP 16; TEMP 36.5; O2SAT 94
[2021-04-03] MEDS: LEVOTHYROXINE SODIUM 112 MCG TABLET PO (06:45)
[2021-04-03 06:51] LABS: Glucose Point of Care 92 mg/dl (65-105)
--- NOTE | 2021-04-03 07:45 | PCOTNOTE ---
Attempted to see patient, patient refused due to her breakfast not arriving yet and needing to have her LE wound re-wrapped. Will attempt again later if time.
[2021-04-03] MEDS: ASPIRIN 81 MG ENTERIC TABLET PO (09:36)
[2021-04-03] MEDS: FERROUS SULFATE 324 MG TABLET PO (09:36)
[2021-04-03] MEDS: lisinopriL 10 MG TABLET PO (09:36)
[2021-04-03] MEDS: TAMSULOSIN HCL 0.4 MG CAPSULE PO (09:36)
[2021-04-03] MEDS: FUROSEMIDE 40 MG TABLET PO (09:37)
[2021-04-03] MEDS: busPIRone HCL 5 MG TABLET 15 MG PO ×2 (09:37→12:04)
[2021-04-03] MEDS: APIXABAN 5 MG TABLET PO (09:37)
[2021-04-03] MEDS: HYDROcodone/acetaminophen (*CRX) 10-325 MG TABLET 1 TAB PO ×2 (09:38→13:26)
[2021-04-03] MEDS: SILVERGEL (ELTA) 45 ML 1 APPLIC TOPICAL (09:38)
[2021-04-03] MEDS: buPROPion HCL XL (24 HR) 150 MG TABCR 300 MG PO (09:38)
[2021-04-03 12:01] VITALS: BP 129/90
[2021-04-03 12:14] LABS: Glucose Point of Care 87 mg/dl (65-105)
--- NOTE | 2021-04-03 13:18 | PM.IMPN ---
Progress Note: A&P Assessment and Plan (1) Discharge planning issues: Code(s): Z02.9 - Encounter for administrative examinations, unspecified Status: Acute Assessment and Plan: Patient medically stable for discharge. Coordination working on disposition (2) Infected wound: Code(s): T14.8XXA - Other injury of unspecified body region, initial encounter; L08.9 - Local infection of the skin and subcutaneous tissue, unspecified Status: Acute Assessment and Plan: Patient had an infected wound on the lateral aspect of her right leg. She said she obtained this from a fall earlier this month. -status post excisional debridement 03/30/21. Postop day 4 and healing well. -white blood cell count improving, now normal. -cefazolin and vancomycin was stopped as the patient does not appear to have any systemic infection and the wound is healing well. -Continue local wound care -blood cultures negative (3) Diastolic congestive heart failure: Code(s): I50.30 - Unspecified diastolic (congestive) heart failure Status: Acute Assessment and Plan: Appears to be euvolemic -Continue lasix, lisinopril and metoprolol (4) Chronic kidney disease, stage 3: Code(s): N18.30 - Chronic kidney disease, stage 3 unspecified Status: Acute Assessment and Plan: BUN and creatinine at patient's baseline (5) Type 2 diabetes mellitus: Code(s): E11.9 - Type 2 diabetes mellitus without complications Status: Acute Assessment and Plan: Last glucose 87 -on no home medications for this and appears to be diet controlled (6) Acute respiratory failure with hypoxia: Code(s): J96.01 - Acute respiratory failure with hypoxia Status: Acute Assessment and Plan: Resolved (7) Hypertension: Code(s): I10 - Essential (primary) hypertension Status: Acute Assessment and Plan: Last blood pressure 129/90 but was higher this morning -continue Lasix, lisinopril and metoprolol Subjective Date/time seen: 04/03/21 13:18 Interval history: Pt is a 70-year-old female here for leg wound. Patient was seen today and had loss of question about her discharge plan. I explained her that she was medically stable and ready to go. Pt denies nausea, vomiting, fevers, chills,, diarrhea, chest pain, sob, or abdominal pain. She says she does not like the food here. Exam Narrative: General: Well developed well nourished patient in NAD HEENT: normocephalic Neck: supple Neuro: Alert and oriented x4. cranial nerves 2-12 intact CV:RRR Resp: clear to auscultation, no wheezing or rhonchi. Abd: Soft, non distended. No pain to palpation. Positive bowel sounds Extremities: right leg wound that has been debrided with healthy tissue surrounding. No further Erythema to the area. Left leg with some discoloration but thought to be due to dependence (improved since yesterday). pulses and sensation intact Objective Data Vital Signs Vital Signs: Vital Signs - 24 hr 04/02/21 14:00 04/02/21 21:09 04/02/21 22:00 Temperature 98.0 F 97.1 F L Pulse Rate 67 66 84 Respiratory Rate 18 16 Blood Pressure 158/77 H 133/92 H Pulse Oximetry 94 94 04/03/21 06:00 04/03/21 12:01 Temperature 97.7 F Pulse Rate 80 Respiratory Rate 16 Blood Pressure 170/84 H 129/90 Pulse Oximetry 94 Intake/Output Intake/Output: Intake & Output 03/31/21 04/01/21 04/02/21 04/03/21 23:59 23:59 23:59 23:59 Intake Total 2040 3170 1800 760 Balance 2040 3170 1800 760 Meds/Results Medications: Active Medications Generic Name Dose Route Start Last Admin Trade Name Freq PRN Reason Stop Dose Admin Hydrocodone Bitart/Acetaminophen 1 tab 04/01/21 14:21 04/03/21 09:38 Hydrocodone/Acetaminophen (*Crx) 10-325 Mg Tablet PO 1 tab Q4H PRN Administration Pain Rated 7-10 Apixaban 5 mg 03/29/21 09:00 04/03/21 09:37 Apixaban 5 Mg Tablet P
[2021-04-03 14:00] VITALS: BP 133/69; PULSE 73; RESP 18; TEMP 35.6; O2SAT 95
--- NOTE | 2021-04-03 15:11 | PM.DS ---
DS: Admitting Diagnosis Discharge Date 04/03/21 Admitting Diagnosis leg wound DS: Discharge Diagnosis Discharge Diagnosis (1) Infected wound: Code(s): T14.8XXA - Other injury of unspecified body region, initial encounter; L08.9 - Local infection of the skin and subcutaneous tissue, unspecified Status: Acute Assessment and Plan: Patient had an infected wound on the lateral aspect of her right leg. She said she obtained this from a fall earlier this month. -status post excisional debridement 03/30/21. -white blood cell count improved during hospitalization, now normal. -Pt completed abx while hospitalized with cefazolin and vancomycin. They were stopped as the patient does not appear to have any systemic infection and the wound is healing well. -Continue local wound care at facility -blood cultures negative (2) Diastolic congestive heart failure: Code(s): I50.30 - Unspecified diastolic (congestive) heart failure Status: Acute Assessment and Plan: Appears to be euvolemic -Continue lasix, lisinopril and metoprolol (3) Chronic kidney disease, stage 3: Code(s): N18.30 - Chronic kidney disease, stage 3 unspecified Status: Acute Assessment and Plan: BUN and creatinine at patient's baseline (4) Type 2 diabetes mellitus: Code(s): E11.9 - Type 2 diabetes mellitus without complications Status: Acute Assessment and Plan: Last glucose 87 -on no home medications for this and appears to be diet controlled (5) Acute respiratory failure with hypoxia: Code(s): J96.01 - Acute respiratory failure with hypoxia Status: Acute Assessment and Plan: Resolved (6) Hypertension: Code(s): I10 - Essential (primary) hypertension Status: Acute Assessment and Plan: Last blood pressure 133/69 -continue Lasix, lisinopril and metoprolol DS: Summary Hospital Course Hospital Course: Pt is a 70 y/o female who presented to the ED for wound on her right leg. She obtained this wound around 3 weeks ago and still had sutures in the area and states it was 'getting black'. Pt was started on abx and admitted to the hospitalist service. Sx was consulted and did a right leg excisional debridement. Pt did well with this procedure and the wound appeared to be healing well the day of discharge. Her discharge was delayed a bit due to insurance/placement. Please see above for further details. Day of discharge pt was educated about the worrisome signs and symptoms to come back to the ER for and was discharged in stable condition. Status at Discharge Functional status at discharge: independent ambulation Time Spent with Patient Time attestation: Total time spent providing and/or coordinating discharge services:38 min Exam Narrative: General: Well developed well nourished patient in NAD HEENT: normocephalic Neck: supple Neuro: Alert and oriented x4. cranial nerves 2-12 intact CV:RRR Resp: clear to auscultation, no wheezing or rhonchi. Abd: Soft, non distended. No pain to palpation. Positive bowel sounds Extremities: right leg wound that has been debrided with healthy tissue surrounding. No further Erythema to the area. Left leg with some discoloration but thought to be due to dependence (improved since yesterday). pulses and sensation intact DS: Data Data Completed and Pending Labs on day of discharge: Labs from last 24 hours 04/03/21 04/03/21 04/03/21 12:03 06:44 05:03 Sodium 138 Potassium 3.7 Chloride 105 Carbon Dioxide 28 Anion Gap 5 L BUN 20 H Creatinine 1.10 H Estim Creat Clear Calc 42 Estimated GFR 49 L Glucose 88 POC Capillary Glucose 87 92 Calcium 7.5 L Magnesium 1.9 04/02/21 04/02/21 20:41 16:36 Sodium Potassium Chloride Carbon Dioxide Anion Gap BUN Creatinine Estim Creat Clear Calc Estimated GFR Glucose POC Capillary Gl
[2021-04-03 15:41] LABS: EDCOVIDSCREEN Negative (Negative)
== END 2021-04-03 16:50 | DRG 856 ==
LOC: ANHED 03-29 01:22 → ANH2MED 03-29 03:41
PROVIDERS: Internal Medicine; Surgery; Admitting Provider Internal Medicine; Emergency Provider Family Medicine; PCP Physician Assistant; Visit Provider Physician Assistant
PROC: 0JBN0ZZ Excision of Right Lower Leg Subcutaneous Tissue and Fascia, Open Approach (ICD-10-PCS; principal; 2021-03-30 15:00)
DX: T81.49XA Infection following a procedure, other surgical site, initial encounter (principal); J96.01 Acute respiratory failure with hypoxia; I13.0 Hypertensive heart and chronic kidney disease with heart failure and stage 1 through stage 4 chronic kidney disease, or unspecified chronic kidney disease; I50.32 Chronic diastolic (congestive) heart failure; I96 Gangrene, not elsewhere classified; L08.9 Local infection of the skin and subcutaneous tissue, unspecified; D64.9 Anemia, unspecified; Z20.822 Contact with and (suspected) exposure to COVID-19; Z91.81 History of falling; I87.2 Venous insufficiency (chronic) (peripheral); K21.9 Gastro-esophageal reflux disease without esophagitis; E11.22 Type 2 diabetes mellitus with diabetic chronic kidney disease; N18.30 Chronic kidney disease, stage 3 unspecified; R30.0 Dysuria; Z79.01 Long term (current) use of anticoagulants; Z79.82 Long term (current) use of aspirin; Z79.899 Other long term (current) drug therapy; Z86.718 Personal history of other venous thrombosis and embolism
CPT/HCPCS: 36415; 71046; 80048; 80053; 80076; 80202; 81001; 82565; 82948; 83735; 84100; 85025; 85027; 87040; 87086; 87088; 87426; 96374; 96375; 97110; 97116; 97163; 97166; 97530; 99285; A9270; C9803; J0690; J1170; J2250; J2270; J2405; J2704; J3010; J3370; J7030; J7120

== ENCOUNTER 2021-04-18 13:54 | Emergency (ER) | payer OTHER, SELFPAY ==
[2021-04-18] VITALS (20 sets, daily range): BP systolic 154–169; BP diastolic 46–106; PULSE 72–110; RESP 10–22; TEMP 36.2–36.3; O2SAT 97–100
--- NOTE | ~2021-04-18 | CT_ITS ---
EXAMINATION: CT abdomen pelvis w con EXAM DATE: 04/18/2021 20:16 INDICATION: Abdominal pain, vomiting. TECHNIQUE: Spiral CT of the abdomen and pelvis was performed following intravenous injection of 100 m L Omnipaque 350. Axial, coronal and sagittal images of the abdomen and pelvis were reviewed. The do se-length product (DLP) for this examination was 693.02 mGy-cm. The exposure was tailored according to patient size (auto mA exposure control), and iterative reconstruction (ASIR) was used as additiona l dose reduction technique. There is no prior study for comparison. FINDINGS: There are gastroesophageal region surgical clips and small sliding hiatal hernia. There is small to moderate sliding gastroesophageal hiatal hernia. There is edema of the distal aspect of the esophagus, consistent with esophagitis. Prior study from had similar appearance to the gastroesophage al junction, but the suspected esophagitis has developed. The liver, spleen, adrenal glands and pancreas are unremarkable. There are cholecystectomy clips. P ortal and splenic veins are patent. Kidneys enhance symmetrically. There is no hydronephrosis. Bila teral renal cysts. There is a left kidney midpole hypodensity too small to characterize by CT, statis tically most likely cyst. There is a posterior myometrial fibroid. Endometrium mildly thickened at ab out 8 mm, hyperplasia or possibly cancer. The ovaries are normal in size. The bladder is unremarkabl e. There is no retroperitoneal or pelvic lymphadenopathy. Small umbilical fat-containing hernia. Rig ht-sided abdominal wall lipoma. The appendix is normal. There is mild scattered colonic diverticulosis. There is no adjacent inflamm atory change to suggest diverticulitis. There is expected amount of colonic stool. No free intraper itoneal gas. The heart is normal in size. There are no pericardial or pleural effusions. The lung bases are unremarkable. There are bony degenerative changes. No osteoblastic or osteolytic lesions identified. Mild to moderate compression fracture of L1 and mild at L3. There is grade 1 anterolisthe sis L3 on L4. Right hip arthroplasty hardware. IMPRESSION: 1. Gastroesophageal surgical changes, small hiatal hernia and evidence of esophagitis. 2. Subcentimeter left renal lesion, probably cyst but small renal cell cancer not excludable. MRI ab domen without and with contrast or 6 month follow-up CT abdomen with contrast. 3. Mildly thickened endometrium, hyperplasia or endometrial cancer. Pelvic sonogram recommended. 4. Mild colonic diverticulosis. Reviewed, dictated and finalized at location A. IMPRESSION: 1. Gastroesophageal surgical changes, small hiatal hernia and evidence of esop hagitis. 2. Subcentimeter left renal lesion, probably cyst but small renal cell cancer not excludable. MRI abdomen without and with contrast or 6 month follow-up CT a bdomen with contrast. 3. Mildly thickened endometrium, hyperplasia or endometrial cancer. Pelvic son ogram recommended. 4. Mild colonic diverticulosis.
--- NOTE | ~2021-04-18 | XR_ITS ---
XR chest 1V portable DATE: 04/18/2021 14:33 INDICATION: Weakness TECHNIQUE: 2 portable supine AP views on 04/18/2021 at 1420 hours COMPARISON: 03/29/2021 AP and lateral chest 08/12/2019 CT pulmonary scan FINDINGS: Cardiomegaly. No pulmonary infiltrate or consolidation, pleural effusion or pulmonary vascular congestion or pneumo thorax is detected. Diffuse osteopenia. There is levoscoliosis of the thoracolumbar spine. Surgical clips, right upper quadrant, consistent with cholecystectomy. IMPRESSION: Cardiomegaly No active pulmonary disease is evident on this limited portable rotated examination Reviewed, dictated and finalized at location A. IMPRESSION: Cardiomegaly No active pulmonary disease is evident on this limited portable rotated examina tion
--- NOTE | ~2021-04-18 | CT_ITS ---
EXAMINATION: CT brain wo con DATE: 04/18/2021 16:53 INDICATION: Headache and weakness TECHNIQUE: Computed tomography (CT) of the head was performed without intravenous contrast. Sagittal and coronal reconstructions were performed. The mA was adjusted according to patient size. Iterative reconstruction technique was employed. The dose-length product was 605.33 mGy-cm. COMPARISON: head CT dated 03/29/20 and brain MR dated 03/31/2020 FINDINGS: No acute intracranial hemorrhage, acute infarction or abnormal extra axial fluid collection. There is mild to moderate scattered white matter hypoattenuation consistent with chronic small vessel ischemi c disease. Ventricles are normal and symmetric. No mass/mass effect. Intracranial calcified cerebral atherosclerosis is noted. The orbits and mastoid air cells are normal. Moderate mucosal thickening t hroughout the paranasal sinuses with small amount of dependently layering mucus in the left maxillary , right frontal and left sphenoid sinuses. IMPRESSION: 1. No acute intracranial process. 2. Mild to moderate scattered white matter hypoattenuation consistent with chronic small vessel ische sebas disease. 3. Sinus disease. Reviewed, dictated and finalized at location B. IMPRESSION: 1. No acute intracranial process. 2. 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 3. Sinus disease.
--- NOTE | ~2021-04-18 | XR_ITS ---
EXAMINATION: XR tibia fibula RT 2V DATE: 04/18/2021 15:44 INDICATION: Wound at the right lower leg TECHNIQUE: AP and lateral views of the right lower leg were obtained on overlapping proximal and dist al images. COMPARISON: None. FINDINGS: Oblique laceration at the anterolateral aspect of the proximal right lower leg. No radiopaque foreign bodies. Bone alignment is normal. No fracture. Diffuse osteopenia. No cortical erosions or periostea l reaction. Joint spaces appear relatively preserved. Small plantar calcaneal spur. No knee or ankle joint effusion. IMPRESSION: 1. No acute osseous abnormality or radiopaque foreign body. Reviewed, dictated and finalized at location B.
--- NOTE | 2021-04-18 14:11 | ECG_ITS ---
Measurements Intervals [place] Rate: 86 P: 19 MS: 178 QRS: -59 QRSD: 97 T: 34 QT: 388 QTc: 466 Interpretive Statements SINUS RHYTHM POOR R WAVE PROGRESSION, ANTERIOR LEADS INFERIOR INFARCT, AGE INDETERMINATE BASELINE ARTIFACT- I, II, III, AVR, AVL, AVF, V1, V4-V6 ABNORMAL ECG Electronically Signed On 04-18-2021 15:10:07 CDT by Kenji Lassiter D.O.
[2021-04-18 15:34] LABS: Basophils Percent Auto 0.2 % (0.2-1.2); Eosinophils Absolute Auto 0.1 K/mm3 (0-0.3); Eosinophils Percent Auto 0.6 % (0-4.4); Hematocrit 39.7 % (37.0-47.0); Hemoglobin 12.3 g/dL (12.0-15.0); Immature Granulocyte Absolute 0.04 K/mm3 (0.00-0.031); Immature Granulocyte Percent A 0.4 % (0-0.5); Lymphocytes Absolute Auto 0.65 K/mm3 (0.9-3.2); Lymphocytes Percent Auto 6.8 % (18.3-44.2); Mean Corpuscular Hemoglobin 29.3 pg (26-34); Mean Corpuscular Volume 94.5 fl (80-100); Mean Platelet Volume 9.4 fl (7.4-10.4); Monocytes Absolute Auto 0.6 K/mm3 (0.1-0.6); Monocytes Percent Auto 6.3 % (2.6-8.5); Neutrophils Absolute Auto 8.1 K/mm3 (1.3-6.7); Neutrophils Percent Auto 85.7 % (45.5-73.1); Platelet Count Result 254 k/mm3 (150-375); Red Cell Distribution Width 15.3 % (11.5-14.5); White Blood Count 9.5 K/mm3 (4.5-10.0)
--- NOTE | 2021-04-18 15:46 | PC.NURSE ---
Called lab requesting lab add on.
[2021-04-18] MEDS: ONDANSETRON INJ 4 MG/2 ML VIAL IV PUSH (15:54)
[2021-04-18] MEDS: LACTATED RINGERS 1,000 ML 999 ML IV CONT (15:54)
[2021-04-18 15:59] LABS: Alveolar/Arterial O2 Gradient 40.9 mmHg; Base Excess ABG -1.6 mEq/l (+/-2.0); Carboxyhemoglobin 0.7 % THb (0-2.0); Device ROOM AIR; Fractional Inspired Oxygen 21 %; HCO3 ABG 21.7 mEq/l (22.0-26.0); Oxygen Content ABG 16.1 %vol (16.0-22.0); Oxygen Saturation ABG 94.9 % (95.0-100.0); PCO2 ABG 32.4 mmHg (35.0-45.0); PO2 FiO2 Ratio Arterial Blood 3.33 %; Reduced Hemoglobin 6.3 %THb (0-5.0); Site Drawn RIGHT BRACHIAL; Total Hemoglobin 12.3 g/dL (12.0-18.0); pH ABG 7.444 (7.350-7.450)
[2021-04-18 16:03] LABS: Prothrombin Time 12.8 Seconds (11.1-14.7)
[2021-04-18 16:04] LABS: Partial Thromboplastin Time 31.8 SECONDS (22.3-36.8)
--- NOTE | 2021-04-18 16:30 | PC.NURSE ---
Pt incontinent of bowel and bladder. Full linen and brief change. Stool was black, pt unsure if she is on a iron supplement. MD aware. Straight cath for 300 cc. Blankets given. Pt resting comfortably
--- NOTE | 2021-04-18 16:34 | ED.GENADULT ---
HPI - General Adult General Chief complaint: Unspecified <Martha Steinberg MD - Last Filed: 04/24/21 07:06> Stated complaint: NOT FEELING WELL <Martha Steinberg MD - Last Filed: 04/24/21 07:06> Time Seen by Provider: 04/18/21 15:09 <Martha Steinberg MD - Last Filed: 04/24/21 07:06> Source: patient <Martha Steinberg MD - Last Filed: 04/24/21 07:06> Mode of arrival: EMS <Martha Steinberg MD - Last Filed: 04/24/21 07:06> Limitations: no limitations <Martha Steinberg MD - Last Filed: 04/24/21 07:06> History of Present Illness HPI narrative: This is a 70 year old female with history of multiple medical problems including chronic anticoagulation who presents for evaluation of not felling well. She is complaining of diffuse chest pain, abdominal pain, nausea and vomiting. She denies chest pain radiating to her back. She reports shortness of breath but denies cough. She is unsure of fever or chills. Patient was discharged from [facility] weeks ago . During that visit, she was on antibiotics for right leg wounds. She has been doing daily wound dressing changes. She was [facility] hospitalization but she states she is at home. Nursing staff noticed that patient is having dark stools and cloudy urine. PAtient also reports headache and generalized weakness. <Martha Steinberg MD - Last Filed: 04/24/21 07:06> Related Data Home medications: Home Medications Medication Instructions Recorded Confirmed buspirone 15 mg PO TID 07/16/19 03/29/21 furosemide 40 mg PO DAILY 07/16/19 03/29/21 hydroxyzine HCl 25 mg PO Q8H PRN 07/16/19 03/29/21 levothyroxine 112 mcg PO DAILY 07/28/19 03/29/21 bupropion HCl 300 mg PO QAM 03/29/20 03/29/21 lisinopril 10 mg PO DAILY 03/29/20 03/29/21 pantoprazole 40 mg PO HS 03/29/20 03/29/21 divalproex [Depakote ER] 500 mg PO HS 11/21/20 03/29/21 melatonin 5 mg PO HS 11/21/20 03/29/21 <Martha Steinberg MD - Last Filed: 04/24/21 07:06> Allergies/adverse reactions: Allergies Allergy/AdvReac Type Severity Reaction Status Date / Time No Known Allergies Allergy Verified 04/18/21 14:14 <Martha Steinberg MD - Last Filed: 04/24/21 07:06> Review of Systems Review of Systems: All systems reviewed & are unremarkable except as noted in HPI and below <Martha Steinberg MD - Last Filed: 04/24/21 07:06> [facility] Past Medical History Medical History: Medical History Anxiety Bipolar 1 disorder Bowel obstruction Chronic anticoagulation Treatment for DVT. Chronic kidney disease, stage 3 Creatinine ranges between 1.0 and 1.40. Chronic venous stasis dermatitis of both lower extremities Deep venous thrombosis (07/2019) Depression Diabetic peripheral neuropathy Diastolic congestive heart failure Echocardiogram on 11/21/2020 showed grade 1 diastolic dysfunction, hyperdynamic systolic function of the left ventricle with an estimated EF of greater than 70%, mild pulmonary hypertension, mild left atrial enlargement, and mild mitral and tricuspid valve regurgitation. Esophageal ulcer Foot drop Gastroesophageal reflux disease Heart attack Hyperlipidemia Hypertension Hypothyroidism Memory loss Osteoarthritis of right hip Pneumonia Post-menopausal Transient ischemic attack Type 2 diabetes mellitus Hemoglobin A1c was 5.3% on 11/21/2020. Vitamin B12 deficiency <Martha Steinberg MD - Last Filed: 04/24/21 07:06> Surgical History Surgical History: Surgical History History of section History of cholecystectomy History of gastric bypass History of right hip hemiarthroplasty July 2019 History of tooth extraction <Martha Steinberg MD - Last Filed: 04/24/21 07:06> Family History Family History: Family History Mother
[2021-04-18 16:48] LABS: Add Urine Microscopic? YES; Appearance Urine Clear (Clear); Bilirubin Urine Negative (Negative); Blood Urine Negative (Negative); Color Urine Yellow (Yellow); Glucose Urine UA Negative (Negative); Ketones Urine Negative (Negative); Leukocyte Esterase Ur Trace LEU/UL (Negative); Mucus Urine Rare /lpf; Nitrate Urine Negative (Negative); Protein Urine 2+ mg/dL (Negative); Specific Grav Ur 1.028 (1.001-1.035); Squamous Epithelial Cell Urine Moderate /hpf (Few); Urobilinogen Urine Negative mg/dL (<2.0)
--- NOTE | 2021-04-18 17:45 | PC.NURSE ---
Received call from patient's , Juventino, given update. [phone]
--- NOTE | 2021-04-18 17:55 | PC.NURSE ---
Labs attempted by two RNs and cassie, phlebotomy called and requested to draw patient's labs.
[2021-04-18] MEDS: PANTOPRAZOLE SODIUM IV 40 MG VIAL IV PUSH (17:56)
--- NOTE | 2021-04-18 18:25 | PC.NURSE ---
Labs attempted again by cassie, rejected by lab. Cassie called phlebotomy requesting they draw patient again.
[2021-04-18] MEDS: SILVERGEL (ELTA) 45 ML 1 APPLIC TOPICAL (18:31)
--- NOTE | 2021-04-18 19:04 | PC.NURSE ---
Called phlebotomy again, they are on their way.
--- NOTE | 2021-04-18 19:18 | PC.NURSE ---
Phlebotomy at bedside
--- NOTE | 2021-04-18 19:39 | PC.NURSE ---
Assumed care of pt at this time. Pt alert and upright on stretcher, with c/o nausea and headache. Pt repositioned and updated on POC.
[2021-04-18 19:45] LABS: Alanine Aminotransferase 8 U/L (4-35); Albumin Level 3.3 g/dL (3.5-5.1); Alkaline Phosphatase 106 U/L (38-126); Anion Gap 8 mmol/L (8-16); Aspartate Amino Transferase 16 U/L (14-36); Bilirubin,Total 0.3 mg/dL (0.2-1.3); Blood Urea Nitrogen 23 mg/dL (7-17); CRP < 0.5 mg/dL (<1.0); Calcium 8.5 mg/dL (8.4-10.2); Carbon Dioxide 24 mmol/L (22-30); Chloride 105 mmol/L (98-107); Estimated CRCL calculation 41 ml/min; Estimated Glomerular Filt Rate 55; Glucose 101 mg/dL (65-110); Lipase 57 U/L (23-300); Potassium 3.4 mmol/L (3.4-5.0); Sodium 137 mmol/L (137-145)
[2021-04-18 19:54] LABS: Troponin I < 0.012 ng/mL (0.000-0.034)
--- NOTE | 2021-04-18 22:11 | PC.NURSE ---
This RN spoke with pt spouse, Juventino. He states he is able to come ED and parts picker pt after discharge.
== END 2021-04-18 22:55 | disposition home or self-care (01) ==
PROVIDERS: General Practice; Emergency Provider Emergency Medicine; PCP Physician Assistant
DX: S80.921A Unspecified superficial injury of right lower leg, initial encounter (principal); D68.318 Other hemorrhagic disorder due to intrinsic circulating anticoagulants, antibodies, or inhibitors; R11.2 Nausea with vomiting, unspecified; F41.9 Anxiety disorder, unspecified; F32.9 Major depressive disorder, single episode, unspecified; I13.0 Hypertensive heart and chronic kidney disease with heart failure and stage 1 through stage 4 chronic kidney disease, or unspecified chronic kidney disease; E11.22 Type 2 diabetes mellitus with diabetic chronic kidney disease; N18.30 Chronic kidney disease, stage 3 unspecified; I50.30 Unspecified diastolic (congestive) heart failure; I48.91 Unspecified atrial fibrillation; K21.9 Gastro-esophageal reflux disease without esophagitis; I25.2 Old myocardial infarction; Z86.718 Personal history of other venous thrombosis and embolism; E03.9 Hypothyroidism, unspecified; X58.XXXA Exposure to other specified factors, initial encounter
CPT/HCPCS: 36415; 36600; 51701; 70450; 71045; 73590; 74177; 80053; 81001; 82375; 82805; 83050; 83690; 84484; 85025; 85610; 85730; 86140; 87077; 87086; 87088; 87186; 93005; 96361; 96374; 96375; 99284; C9113; J2405; J7120; Q9967